=== PATIENT | male | born 1960 | race Caucasian/White ===

== ENCOUNTER → 2020-11-23 02:59 | Outpatient (CLI) | payer OTHER, SELFPAY ==
[2020-11-24 01:17] LABS: SARS-CoV-2 RNA PCR Negative
== END ==
PROVIDERS: Visit Provider Specialist
DX: Z01.812 Encounter for preprocedural laboratory examination (principal); Z20.822 Contact with and (suspected) exposure to COVID-19
CPT/HCPCS: C9803; U0003; U0005

== ENCOUNTER 2020-11-27 02:36 | Day surgery (SDC) | payer OTHER, SELFPAY ==
[2020-11-26 16:16] VITALS: BMI 44.4
[2020-11-27] VITALS (18 sets, daily range): BP systolic 105–151; BP diastolic 52–99; PULSE 61–71; RESP 14–22; TEMP 35.8–36.1; O2SAT 93–97
[2020-11-27 08:41] LABS: Basophils Absolute Auto 0.1 K/mm3 (0.0-0.1); Basophils Percent Auto 0.5 % (0.2-1.2); Eosinophils Absolute Auto 0.2 K/mm3 (0-0.3); Eosinophils Percent Auto 1.9 % (0-4.4); Hematocrit 43.4 % (42.0-52.0); Hemoglobin 14.9 g/dL (14.0-18.0); Immature Granulocyte Absolute 0.07 K/mm3 (0.00-0.031); Immature Granulocyte Percent A 0.6 % (0-0.5); Lymphocytes Absolute Auto 2.92 K/mm3 (0.9-3.2); Lymphocytes Percent Auto 26.2 % (18.3-44.2); Mean Corpuscular HGB Conc 34.3 g/dl (32-36); Mean Corpuscular Hemoglobin 31.5 pg (26-34); Mean Corpuscular Volume 91.8 fl (80-100); Mean Platelet Volume 10.3 fl (7.4-10.4); Monocytes Absolute Auto 1.4 K/mm3 (0.1-0.6); Monocytes Percent Auto 12.3 % (2.6-8.5); Neutrophils Absolute Auto 6.5 K/mm3 (1.3-6.7); Neutrophils Percent Auto 58.5 % (45.5-73.1); Platelet Count Result 277 k/mm3 (150-375); Red Blood Count 4.73 M/mm3 (4.6-6.20); Red Cell Distribution Width 12.5 % (11.5-14.5); White Blood Count 11.2 K/mm3 (4.5-10.0)
[2020-11-27 08:51] LABS: Anion Gap 8 mmol/L (8-16); Blood Urea Nitrogen 16 mg/dL (9-20); Calcium 9.1 mg/dL (8.4-10.2); Carbon Dioxide 27 mmol/L (22-30); Chloride 102 mmol/L (98-107); Estimated CRCL calculation 124 ml/min; Estimated Glomerular Filt Rate > 60; Glucose 205 mg/dL (75-110); INR 0.9; Potassium 4.2 mmol/L (3.4-5.0); Prothrombin Time 13.2 Seconds (11.1-14.7); Sodium 137 mmol/L (137-145)
--- NOTE | 2020-11-27 09:35 | WPDMODSED ---
Moderate Sedation Note-Pt Data Patient Data Diagnosis: Exertional dyspnea/chest pain Abnormal nuclear stress test Morbid obesity Medical noncompliance Smoking Present Complaint: This is a 60-year-old man who smokes and is morbidly obese who has been experiencing exertional dyspnea as well as some occasional chest pain. Nuclear stress test suggests evidence of ischemic left ventricular systolic dysfunction and in this setting and angiogram has been recommended Procedure to be performed/Plan: Left heart catheterization Allergies Allergy/AdvReac Type Severity Reaction Status Date / Time No Known Allergies Allergy Unknown Verified 11/26/20 16:11 Home Medications Medication Instructions Recorded Confirmed Type acetaminophen 500 mg PO DAILY 11/27/20 11/27/20 History aspirin 81 mg PO DAILY 11/27/20 11/27/20 History atorvastatin 80 mg PO HS 11/27/20 11/27/20 History cholecalciferol (vitamin D3) 25 mcg PO DAILY 11/27/20 11/27/20 History [Vitamin D3] clopidogrel 75 mg PO DAILY 11/27/20 11/27/20 History evolocumab [Repatha Syringe] See Rx Instructions .ROUTE .COMPLEX 11/27/20 11/27/20 History fenofibrate 145 mg PO DAILY 11/27/20 11/27/20 History lisinopril 5 mg PO DAILY 11/27/20 11/27/20 History metoprolol succinate 100 mg PO DAILY 11/27/20 11/27/20 History omega 8-yfe-mlt-fish oil [Fish Oil] 1 cap PO DAILY 11/27/20 11/27/20 History Current Medications: Active Medications Sodium Chloride (Normal Saline Iv) 500 mls @ 100 mls/hr IV CONT .Q5H LUCERO Sedation/Anesthesia: No previous sedation/anesthesia problems (including family history). [facility] Social History Social History Smoking status: Current every day smoker Substance use: current Living arrangements: alone Mod Sed Physical Exam Physical Exam Pre Procedural Exam: Normal: Airway, Lungs, Heart Size, Heart Rate, Heart Rhythm, Neuro Exam and Extremities and Variation: Appearance (Obese man in no distress) Hours since solid foods: 12 Hours since liquid intake: 12 Internal Medicine - PN: Obj Da Vital Signs Vital Signs: Vital Signs - 24 hr 11/27/20 08:38 Temperature 35.8 C L Pulse Rate 71 Respiratory Rate 20 Blood Pressure 139/63 Pulse Oximetry 96 Meds/Results Medications: Active Medications Generic Name Dose Route Start Last Admin Trade Name Freq PRN Reason Stop Dose Admin Sodium Chloride 500 mls @ 100 mls/hr 11/27/20 08:00 Normal Saline Iv IV CONT .Q5H LUCERO Labs CBC & Chem 7: 11/27/20 08:29 11/27/20 08:29 Labs: Laboratory Results - last 24 hr 11/27/20 11/27/20 11/27/20 08:29 08:29 08:29 WBC 11.2 H RBC 4.73 Hgb 14.9 Hct 43.4 MCV 91.8 MCH 31.5 MCHC 34.3 RDW 12.5 Plt Count 277 MPV 10.3 Immature Gran % (Auto) 0.6 H Neut % (Auto) 58.5 Lymph % (Auto) 26.2 [place] % (Auto) 12.3 H Eos % (Auto) 1.9 Baso % (Auto) 0.5 Lymph # (Auto) 2.92 [place] # (Auto) 1.4 H Eos # (Auto) 0.2 Baso # (Auto) 0.1 Abs Immat Gran (auto) 0.07 H Absolute Neuts (auto) 6.5 Absolute Nucleated RBC 0.0 Nucleated RBC % 0.0 PT 13.2 INR 0.9 Sodium 137 Potassium 4.2 Chloride 102 Carbon Dioxide 27 Anion Gap 8 BUN 16 Creatinine 0.70 Estim Creat Clear Calc 124 Estimated GFR > 60 Glucose 205 H Calcium 9.1 ASA Classification/Sedation ASA Classification/Sedation ASA Class: II Emergent: No Risks: Risks, benefits and alternatives explained and patient/family accepted plan for sedation. Patient re-evaluated immediately prior to sedation.
--- NOTE | 2020-11-27 10:45 | WPDCARDPROC ---
Cardiac Cath Procedure Note Date of procedure:: 11/27/20 Performing physician:: Drew Wallis MD Indication:: Coronary artery disease with previous MN/PCI symptoms of ischemia with modest exertion abnormal nuclear stress test Brief clinical history:: this is a 60-year-old patient with coronary disease having undergone previous intervention revascularization of all of his coronaries. By report his LAD was most recently treated in 2009 with a bare metal stent. His circumflex and right coronary arteries were previously stented and were patent at that time. He now has reporting increasing shortness of breath with activity along with some mixed ischemic sounding chest pain. Because of a significantly abnormal nuclear stress test follow-up angiography has been recommended. The patient is morbidly obese and has not been able to quit smoking Procedure Procedure performed:: left ventriculography coronary angiography Sedation/Medication given:: fentanyl 50 mg Versed 2 mg case start time 10:11 a.m. case end time 10:40 a.m. sedation provided by Elissa Webb RN, trained observer Access site:: right femoral artery Estimated blood loss:: 20-30 cc Procedure note:: patient was brought to the cardiac catheterization lab in the postabsorptive state where the right femoral triangle was prepared and draped in the usual fashion. Anesthesia was provided with 1% lidocaine infiltrated locally. Using the modified Seldinger technique a 5 [place] sheath was placed in the femoral artery after this left heart catheterization was carried out. A 5 [place] angled pigtail catheter was used to measure left-sided hemodynamics and to injected LV g in the are AO projection. After this the pigtail catheter was withdrawn. I used a standard 5 [place] FL4 catheter to engage and inject the left coronary artery in multiple projections after this a standard 5 [place] JR4 catheter was used to engage inject the right coronary artery. Because of hypotension the patient did receive about 500 cc bolus of saline during the procedure. At the end of the procedure the cineangiograms were reviewed and the case was terminated was taken to the holding area for manual sheath removal. The procedure was uncomplicated he left the director geophysical laboratory with no evidence of a groin hematoma. Findings:: Hemodynamics: Central aortic pressure is 90 over 45 left ventricle 90 over 8 end-diastolic 14. No significant gradient on pullback across the aortic valve. Left ventricle: The LV is moderately enlarged. The mid anterior apex and apical inferior segments are akinetic. The global ejection fraction is visually estimated to be about 40%. The left main coronary artery is nicely patent the left anterior descending is a moderate caliber artery extending down to around the apex. There is visible stent material in the midportion of the LAD with minimal loss of lumen but appears to be patent without flow-limiting stenosis. The proximal segment however is significantly diseased with about 80% stenosis in the vicinity of the septal perforating complex. This is proximal to the previously deployed stent. Circumflex is a medium caliber artery which gives rise to a proximal OM1 branch which is free of significant disease after this the trunk of the circumflex as visible previously deployed stent and the remainder of the circumflex is 100% occluded in this segment. The right coronary artery is large in caliber and dominant to the posterior circulation. There is diffuse disease in the trunk of the RCA. In the 2nd to 3rd portion there is a previously visible stent and in this segment of the artery there is severe long complex 95-99% stenosis. Conclusion:: 1. Severe 3 vessel coronary artery disease with significant stenosis in the proximal LAD prior to previously deployed stent, 100% occlusion of the circumflex in the previously stented segment after the 1st marginal branch originates. Severe compl
[2020-11-27] MEDS: SODIUM CHLORIDE 0.9% IV 1,000 ML 125 ML IV CONT (13:54)
--- NOTE | 2020-11-27 16:54 | SUR.PHASEII ---
NAHID Bowers called Dr. May for the patient, because the patient states he does not have anyone staying with him tonight, but his sister can call and check on him. Dr. Wallis had left for the day and the patient was Dr. May's. Dr. May stated he was okay with patient going home and having his sister call and check on him through the evening.
--- NOTE | 2020-11-27 17:30 | SUR.PHASEII ---
Patient was escorted off the unit by wheelchair and discharged into the care of his sister.
== END 2020-11-27 16:30 | disposition home or self-care (01) ==
PROVIDERS: PCP Family Medicine; Visit Provider Specialist
PROC: 4A023N7 Measurement of Cardiac Sampling and Pressure, Left Heart, Percutaneous Approach (ICD-10-PCS; CPT 93452; principal; 2020-11-27 10:00)
DX: I25.10 Atherosclerotic heart disease of native coronary artery without angina pectoris (principal); R94.39 Abnormal result of other cardiovascular function study; I25.2 Old myocardial infarction; Z95.5 Presence of coronary angioplasty implant and graft; R06.02 Shortness of breath; R07.9 Chest pain, unspecified; E66.01 Morbid (severe) obesity due to excess calories; Z68.41 Body mass index [BMI] 40.0-44.9, adult; Z79.82 Long term (current) use of aspirin; Z79.02 Long term (current) use of antithrombotics/antiplatelets; F17.200 Nicotine dependence, unspecified, uncomplicated
CPT/HCPCS: 36415; 80048; 85025; 85610; 93458; C1887; C1894; J0461; J1644; J2250; J3010; J7040

== ENCOUNTER 2021-02-03 09:58 | Emergency (ER) | payer OTHER, SELFPAY ==
--- NOTE | ~2021-02-03 | XR_ITS ---
EXAMINATION: XR abdomen obstructive series DATE: 02/03/2021 10:45 INDICATION: Constipation one month post open heart surgery. TECHNIQUE: Frontal supine and upright views of the abdomen were obtained. COMPARISON: None. FINDINGS: Moderate amount of stool scattered throughout the colon. No dilated gas-filled loops of bowel to sugg est obstruction. No free intraperitoneal gas. Median sternotomy wires and mediastinal surgical clips are seen, likely from prior coronary artery bypass grafting. Is also retained epicardial pacemaker le ad along the inferior heart. IMPRESSION: 1. Moderate amount of colonic stool consistent with given history of constipation. No free intraperit tobar gas or dilated gas-filled loops of bowel to suggest obstruction. Reviewed, dictated and finalized at location A. IMPRESSION: 1. Moderate amount of colonic stool consistent with given history of constipati on. No free intraperitoneal gas or dilated gas-filled loops of bowel to suggest obstruction.
[2021-02-03 10:05] VITALS: BP 147/84; PULSE 94; RESP 17; TEMP 36.7; O2SAT 97
[2021-02-03] MEDS: METHYLNALTREXONE 12 MG/0.6 ML VIAL SUB-Q (11:01)
--- NOTE | 2021-02-03 11:20 | ED.GENADULT ---
HPI - General Adult General Chief complaint: Abdominal Pain Stated complaint: CONSTIPATION Time Seen by Provider: 02/03/21 10:01 History of Present Illness HPI narrative: Patient is a 60-year-old male who presents ER with constipation. Ongoing over the last couple days. Ran out of stool softener. He is constipated because he has been taking oxycodone every 8 hours since having an open heart surgery last month. No fevers or chills or sweats. No chest pain or chest pressure. He was straining today and developed some bleeding around his rectum and opted to come to the ER for further evaluation. Related Data Home Medications Medication Instructions Recorded Confirmed acetaminophen 500 mg PO DAILY 11/27/20 11/27/20 aspirin 81 mg PO DAILY 11/27/20 11/27/20 atorvastatin 80 mg PO HS 11/27/20 11/27/20 cholecalciferol (vitamin D3) 25 mcg PO DAILY 11/27/20 11/27/20 [Vitamin D3] clopidogrel 75 mg PO DAILY 11/27/20 11/27/20 evolocumab [Repatha Syringe] See Rx Instructions .ROUTE .COMPLEX 11/27/20 11/27/20 fenofibrate 145 mg PO DAILY 11/27/20 11/27/20 lisinopril 5 mg PO DAILY 11/27/20 11/27/20 metoprolol succinate 100 mg PO DAILY 11/27/20 11/27/20 omega 8-ixr-ocf-fish oil [Fish Oil] 1 cap PO DAILY 11/27/20 11/27/20 Allergies Allergy/AdvReac Type Severity Reaction Status Date / Time No Known Allergies Allergy Unknown Verified 11/26/20 16:11 Review of Systems Review of Systems: All systems reviewed & are unremarkable except as noted in HPI and below Constitutional: Constitutional: Denies chills and Denies fever(s) Cardiovascular: Cardiovascular: Denies chest pain and Denies radiating jaw, neck or arm pain Gastrointestinal: Gastrointestinal: Denies abdominal pain, Reports constipation, Denies nausea and Denies vomiting Comments: Blood from rectum. [facility] Past Medical History Medical History (Updated 02/03/21 @ 11:25 by Timbo Noel MD) Coronary artery disease Hypercholesterolemia Hypertension Surgical History Surgical History (Updated 02/03/21 @ 11:24 by Timbo Noel MD) Hx of CABG Social History Social History Smoking status: Current every day smoker Substance use: current Exam Narrative: Exam Narrative: GENERAL: Well-appearing, morbidly obese, and in no acute distress. HEAD: Normocephalic, atraumatic. ENT: Mucous membranes moist. CHEST: Clear to auscultation. No respiratory distress. HEART: Regular rate and rhythm. Normal peripheral pulses. ABDOMEN: Soft, nontender, nondistended. Normal-appearing rectum with 1 external hemorrhoid that is nonbleeding nonthrombosed. There is evidence of recent bleeding but no active sites of bleeding. EXTREMITIES: Normal range of motion. No edema. NEURO: Alert and oriented x3. PSYCH: Normal mood and affect. Course Course Emergency Course: Patient had a large caliber bowel movement after receiving Relistor. Discharge home. Vital Signs Vital signs: Vital Signs Temperature 98.1 F 02/03/21 10:05 Pulse Rate 94 02/03/21 10:05 Respiratory Rate 17 02/03/21 10:05 Blood Pressure 147/84 H 02/03/21 10:05 Pulse Oximetry 97 02/03/21 10:05 Temperature 98.1 F 02/03/21 10:05 Pulse Rate 94 02/03/21 10:05 Respiratory Rate 17 02/03/21 10:05 Blood Pressure 147/84 H 02/03/21 10:05 Pulse Oximetry 97 02/03/21 10:05 Medical Decision Making Vital Signs Vital Signs: Vital Signs Temperature 98.1 F 02/03/21 10:05 Pulse Rate 94 02/03/21 10:05 Respiratory Rate 17 02/03/21 10:05 Blood Pressure 147/84 H 02/03/21 10:05 Pulse Oximetry 97 02/03/21 10:05 Temperature 98.1 F 02/03/21 10:05 Pulse Rate 94 02/03/21 10:05 Respiratory Rate 17 02/03/21 10:05 Blood Pressure 147/84 H 02/03/21 10:05 Pulse Oximetry 97 02/03/21 10:05 Imaging Data Radiologist's impression: ITS Impressions Abdomen X-Ray 02/03/21 10:50 IMPRESSION: 1. Moderate amount of colonic stool consistent with given history of constip
--- NOTE | 2021-02-03 11:20 | PC.NURSE ---
Patient had large bowel movement. EDP Cole notified. Patient now requesting to leave.
== END 2021-02-03 11:37 | disposition home or self-care (01) ==
PROVIDERS: Emergency Provider Emergency Medicine; PCP Family Medicine
DX: K59.03 Drug induced constipation (principal); T40.2X5A Adverse effect of other opioids, initial encounter; I25.10 Atherosclerotic heart disease of native coronary artery without angina pectoris; I10 Essential (primary) hypertension; F17.200 Nicotine dependence, unspecified, uncomplicated; Z95.1 Presence of aortocoronary bypass graft; Z79.82 Long term (current) use of aspirin
CPT/HCPCS: 74019; 96372; 99283; J2212

== ENCOUNTER 2021-12-27 16:02 | Inpatient (IN) | payer OTHER, SELFPAY ==
[2021-12-27] VITALS (27 sets, daily range): BP systolic 146–205; BP diastolic 94–107; PULSE 65–112; RESP 13–25; TEMP 36.1–36.8; O2SAT 88–98; BMI 42.4
--- NOTE | ~2021-12-27 | XR_ITS ---
EXAMINATION: XR chest 1V portable Exam Date/Time: 12/27/2021 16:35 CDT HISTORY: STEMI,HX 3 SD'S AND CABG WITHIN LAST YEAR Comparison: 03/31/2010. RESULT: Lines, tubes, and devices: Intact sternotomy wires. Lungs and pleura: Clear. Cardiomediastinal silhouette: Stable cardiomediastinal silhouette. Other: No acute osseous or upper abdominal finding. IMPRESSION: No acute cardiopulmonary process. Reviewed, dictated and finalized at location K.
--- NOTE | ~2021-12-27 | NM_ITS ---
EXAMINATION: NM pulmonary perfusion DATE: 12/29/2021 11:05 INDICATION: Hypoxia and tachycardia. TECHNIQUE: 5.4 mCi Tc-99m MAA by intravenous route. Scintigraphic images of the chest were obtained. COMPARISON: CT dated 12/27/2021 FINDINGS: There are 3 small peripheral perfusion defects at the left lower lobe and single small perfusion defe ct at the right lower lobe which are without correlate on the prior CT. IMPRESSION: 1. Intermediate probability for pulmonary embolism. Reviewed, dictated and finalized at location B.
--- NOTE | ~2021-12-27 | US_ITS ---
EXAMINATION: US abdomen limited DATE: 12/28/2021 10:58 INDICATION: Elevated lipase TECHNIQUE: Multiple grayscale and Doppler ultrasound images of the abdomen were obtained. COMPARISON: CT dated 12/27/2021 FINDINGS: The region of the pancreas is obscured. Liver has normal contour, with a smooth surface. There is inc reased parenchymal echogenicity and coarsened echotexture consistent with diffuse hepatic steatosis. No liver lesion identified. No intrahepatic biliary duct dilation suspected. Portal venous flow was seen in the hepatopetal, normal direction and has normal Doppler waveform. The gallbladder is normal in appearance. There is no cholelithiasis. The common bile duct measures 4 mm, which is normal. Per discussion with the glass forming engineer the patient was diffusely tender of the abdomen or prominent on the l eft but with no specific sonographic Marin's sign over the gallbladder. IMPRESSION: 1. Diffuse hepatic steatosis. 2. Region of the pancreas is obscured by shadowing bowel gas. Reviewed, dictated and finalized at location A.
--- NOTE | ~2021-12-27 | CT_ITS ---
EXAMINATION: CT chest abdomen pelvis w con DATE: 12/27/2021 17:47 INDICATION: pt with hypoxia, chest pain, abdominal pain . TECHNIQUE: Computed tomography (CT) of the chest, abdomen, and pelvis was performed with 75 mL Omnipa que-300 intravenous contrast. Automated exposure control and iterative reconstruction technique were employed. The dose-length product was 1855.20 mGy-cm. COMPARISON: None FINDINGS: Thoracic aorta: No dilation. Atherosclerotic calcification. Lung parenchyma and airways: Lungs and airways are clear. Thoracic inlet, axillae and chest wall: No thyroid or soft tissue mass. No axillary lymphadenopathy. Gynecomastia. Mediastinum: No mass or lymphadenopathy. Heart and pericardium: Mild cardiomegaly. Coronary artery calcifications: Severe. Pleura: No effusion or mass. Thoracic bones: No acute osseous finding in the chest. ABDOMEN/PELVIS: Liver: Enlarged. Low density parenchyma. Biliary/Gallbladder: Gallbladder is normal. No bile duct dilation. Pancreas: Peripancreatic inflammation and fluid at the tail. Focal eccentric, nonocclusive filling de fect in the adjacent splenic vein. Spleen: Normal. Adrenals:No mass. Kidneys: Bilateral cortical thinning and perinephric stranding. Multiple calcifications may represent vascular calcifications or nonobstructing nephroliths. GI tract: No small or large bowel dilation. Normal appendix. Diverticuli without diverticulosis. Mesentery/Peritoneum: No ascites, mass, or free air. Retroperitoneum: No mass Pelvis: Pelvic organs are within normal limits Soft Tissues: Soft tissues and body wall unremarkable. Abdominopelvic bones: No acute osseous finding in the abdomen/pelvis. IMPRESSION: Acute pancreatitis. Nonocclusive splenic vein thrombosis. Hepatomegaly with steatosis. Reviewed, dictated and finalized at location K. IMPRESSION: Acute pancreatitis. Nonocclusive splenic vein thrombosis. Hepatomegaly with todd atosis.
--- NOTE | ~2021-12-27 | US_ITS ---
EXAMINATION: US venous doppler [facility] DATE: 12/29/2021 10:50 INDICATION: Chest pain. Acute thrombus of splenic vein. TECHNIQUE: Grayscale ultrasound images without and with compression and Doppler ultrasound images of the bilateral lower extremity veins were obtained. COMPARISON: None. FINDINGS: The visualized portions of right common femoral vein, profunda (deep) femoral vein, femoral vein, pop liteal vein, peroneal veins, posterior tibial veins, and greater saphenous vein outflow are patent. The visualized portions of left common femoral vein, profunda femoral vein, femoral vein, popliteal v ein, peroneal veins, posterior tibial veins, and greater saphenous vein outflow are patent. IMPRESSION: 1. No deep venous thrombosis. Reviewed, dictated and finalized at location A.
--- NOTE | ~2021-12-27 | XR_ITS ---
EXAMINATION: XR chest 2V Exam Date/Time: 12/30/2021 15:00 CDT HISTORY: sob Comparison: 12/27/2021 and 03/31/2010. RESULT: Lines, tubes, and devices: Intact sternotomy wires. Lungs and pleura: Subsegmental patchy and linear bibasilar opacities, increased since prior study. Cardiomediastinal silhouette: Stable cardiomediastinal silhouette. Other: No acute osseous or upper abdominal finding. IMPRESSION: Increased bibasilar opacities, likely atelectasis. Pneumonia is not excluded. Reviewed, dictated and finalized at location K.
--- NOTE | 2021-12-27 15:57 | ED.CHESTPAIN ---
HPI - Chest Pain General Chief Complaint: Chest Pain Stated Complaint: stemi Source: patient and EMS Mode of arrival: EMS Limitations: clinical condition History of Present Illness HPI narrative: Patient is a 61-year-old male with a history of coronary artery disease, CABG, previous PR in 2009, presenting to the emergency department as a STEMI activation via EMS. Patient reportedly has been feeling unwell with left-sided chest pain overnight. Patient took some antacids without improvement in his symptoms. His initial EKG showed anterior segment elevation in leads V2, V3, V4, V5. When patient was roomed in the emergency department, patient is reporting chest pain that has been present overnight in the left chest without radiation to the back or shoulder. Patient reports onset of chest pain that he initially thought was indigestion and took some antacids without much improvement in his symptoms. Patient has been compliant with his medications and does take Eliquis per my review of his medication list. Patient denies any shortness of breath or history of recent known COVID infection. He reports nausea, vomiting, diaphoresis with the chest pain. Patient has extensive cardiac history with history of CABG in 2020 at [facility]. His administrative intern is Dr. May. Per chart review, patient has history of complex cardiac catheterization in November 2020 as well. Pt with record of STEMI treated at this facility in 2009. In route, patient was given nitroglycerin with improvement in his symptoms. Related Data Home Medications Medication Instructions Recorded Confirmed acetaminophen 500 mg PO DAILY 11/27/20 11/27/20 aspirin 81 mg PO DAILY 11/27/20 11/27/20 atorvastatin 80 mg PO HS 11/27/20 11/27/20 cholecalciferol (vitamin D3) 25 mcg PO DAILY 11/27/20 11/27/20 [Vitamin D3] clopidogrel 75 mg PO DAILY 11/27/20 11/27/20 evolocumab [Repatha Syringe] See Rx Instructions .ROUTE .COMPLEX 11/27/20 11/27/20 fenofibrate 145 mg PO DAILY 11/27/20 11/27/20 lisinopril 5 mg PO DAILY 11/27/20 11/27/20 metoprolol succinate 100 mg PO DAILY 11/27/20 11/27/20 omega 5-qyd-msf-fish oil [Fish Oil] 1 cap PO DAILY 11/27/20 11/27/20 Allergies Allergy/AdvReac Type Severity Reaction Status Date / Time No Known Allergies Allergy Unknown Verified 12/27/21 16:24 Review of Systems Review of Systems: CONSTITUTIONAL: Denies fever, chills, reports feeling diaphoretic EYES: Denies visual changes, redness, or discharge. ENT: Denies rhinorrhea, congestion, sore throat, or otalgia. CARDIOVASCULAR: Reports chest pain, denies palpitations or edema RESPIRATORY: Denies cough or dyspnea. GASTROINTESTINAL: Denies abdominal pain, reports nausea and vomiting GENITOURINARY: Denies dysuria or hematuria. SKIN: Denies rash or itching. MUSCULOSKELETAL: Denies back pain, joint pain, or myalgia. NEUROLOGIC: Denies headache, numbness, or weakness. [facility] Past Medical History Medical History Coronary artery disease Hypercholesterolemia Hypertension Surgical History Surgical History Hx of CABG Social History Social History Smoking status: Current every day smoker Substance use: current Exam Narrative: GENERAL: Awake, alert, conversant HEAD: Normocephalic, atraumatic. EYES: PERRLA and EOMI. ENT: Nares clear, no rhinorrhea or epistaxis. Mucous membranes dry NECK: Supple. CHEST: No respiratory distress, breathing even and non labored HEART: Tachycardic rate, sinus rhythm ABDOMEN:Non distended, mildly tender in the epigastrium EXTREMITIES: Normal range of motion. No edema. SKIN: Pale, warm, dry, no rash. NEURO:No focal deficits. Alert and oriented x3 Course Vital Signs Vital signs: Vital Signs Pulse Rate 110 H 12/27/21 15:57 Respiratory Rate 13 12/27/21 15:57 Blood Pressure 146/104 H 05
--- NOTE | 2021-12-27 16:09 | ECG_ITS ---
Measurements Intervals [place] Rate: 108 P: 67 MS: 151 QRS: 55 QRSD: 106 T: 54 QT: 358 QTc: 482 Interpretive Statements SINUS TACHYCARDIA LEFT ATRIAL ENLARGEMENT LEFT VENTRICULAR HYPERTROPHY WITH REPOLARIZATION ABNORMALITY CANNOT RULE OUT SEPTAL INFARCT, AGE INDETERMINATE INFERIOR INFARCT, AGE INDETERMINATE ST ELEVATION IN ANTEROLATERAL LEADS- CONSIDER ACUTE INFARCT, PERICARDITIS OR EARLY REPOLARIZATION ABNORMALITY ABNORMAL ECG Electronically Signed On 12-28-2021 8:05:33 CDT by Dank Morgan D.O.
[2021-12-27] MEDS: ONDANSETRON INJ 4 MG/2 ML VIAL IV PUSH ×2 (16:11→19:14)
[2021-12-27] MEDS: SODIUM CHLORIDE 0.9% IV 500 ML 999 ML IV CONT (16:15)
[2021-12-27] MEDS: MORPHINE SULFATE (*CRX) 4 MG/ML INJ IV PUSH ×3 (16:16→21:17)
[2021-12-27 16:20] LABS: Basophils Absolute Auto 0.1 K/mm3 (0.0-0.1); Basophils Percent Auto 0.3 % (0.2-1.2); Eosinophils Percent Auto 0.2 % (0-4.4); Hematocrit 48.9 % (42.0-52.0); Hemoglobin 17.1 g/dL (14.0-18.0); Immature Granulocyte Absolute 0.09 K/mm3 (0.00-0.031); Immature Granulocyte Percent A 0.5 % (0-0.5); Lymphocytes Percent Auto 13.4 % (18.3-44.2); Mean Corpuscular Hemoglobin 30.4 pg (26-34); Mean Platelet Volume 10.6 fl (7.4-10.4); Neutrophils Absolute Auto 13.9 K/mm3 (1.3-6.7); Neutrophils Percent Auto 74.6 % (45.5-73.1); Platelet Count Result 363 k/mm3 (150-375); Red Blood Count 5.62 M/mm3 (4.6-6.20); White Blood Count 18.6 K/mm3 (4.5-10.0)
[2021-12-27 16:29] LABS: INR 1.1; Prothrombin Time 14.1 Seconds (11.1-14.7)
[2021-12-27 16:30] LABS: Partial Thromboplastin Time 27.6 SECONDS (22.3-36.8)
[2021-12-27 16:36] LABS: Alanine Aminotransferase 35 U/L (6-50); Albumin Level 4.7 g/dL (3.5-5.1); Alkaline Phosphatase 91 U/L (38-126); Anion Gap 9 mmol/L (8-16); Aspartate Amino Transferase 30 U/L (17-59); Bilirubin,Total 0.8 mg/dL (0.2-1.3); Blood Urea Nitrogen 32 mg/dL (9-20); Calcium 12.6 mg/dL (8.4-10.2); Carbon Dioxide 32 mmol/L (22-30); Chloride 89 mmol/L (98-107); Estimated CRCL calculation 75 ml/min; Estimated Glomerular Filt Rate > 60; Glucose 467 mg/dL (65-110); Potassium 3.8 mmol/L (3.4-5.0); Sodium 130 mmol/L (137-145)
[2021-12-27 16:41] LABS: NT Pro B Type Natriuretic Pept 474 pg/mL (5-100)
[2021-12-27 16:57] LABS: SARS-CoV-2 RNA PCR Negative
--- NOTE | 2021-12-27 17:04 | PC.NURSE ---
Dr. Wallis with Cardiology at bedside to assess pt.
--- NOTE | 2021-12-27 17:18 | PM.CNCAR ---
Assessment and Plan Additional Plan this is a 61-year-old gentleman known to have multivessel coronary disease who underwent bypass grafting in December of 2020 at [facility]. He presents with some chest pain that began last evening at home was present through the night and into today. In the face of that he has a normal troponin level in the emergency room. His electrocardiogram shows a sinus mechanism with anterior Q-waves and some anterior ST elevation. His ECG from December of 2020 looks similar with the same Q-waves across the precordial leads there is less ST segment elevation on the previous ECG. The patient will be admitted to the hospital for evaluation and treatment. I made the decision in the emergency room that it is in my judgment not the best decision to bring him emergently to the cardiac catheterization lab since in the face of prolonged symptoms his troponin levels are negative and he is systemically anticoagulated with apixaban making angiography substantially higher risk. It is always possible that he has some pericarditis going on that might cause some additional ST segment elevation although I do not hear a pericardial rub in the symptoms are not typical of that by his description. He does have a significant leukocytosis and hyperglycemia he might have an infectious process going on as well. For now I would stop his apixaban for the possibility that he might require an angiogram while he is in the hospital and I would admitted to the hospitalist service for further evaluation and management. Obviously be has a significant troponin rise he will require an angiogram at some point but I do not believe it is in his best interest to do that emergently in the face of no ongoing symptoms, normal troponin and the presence of systemic anticoagulation. Drew Wallis MD [facility] History of Present Illness History of Present Illness Consult date/time: 12/27/21 17:18 Consult reason: chest pain Reason For Visit: stemi Narrative: This is a 61-year-old man I am seeing in the emergency room to determine the appropriateness of bringing him for emergency coronary angiography in the setting of STEMI that was declared by EMS. The patient is known to our practice and follows with Dr. May in the office. He has a history of significant coronary disease with a number of previous percutaneous interventions as well as surgical revascularization that was done in December of 2020 at [facility]. According to the patient he was in his usual state of stable health when yesterday evening he started to have chest pain at home he describes this as a sharp stabbing sensation which sometimes had a pressure-like quality to it in the left precordial region. The discomfort began yesterday evening at about 5-6 p.m. it was present through the evening all night and into today. He finally decided to call an ambulance and was brought to the emergency room here this evening for evaluation. His electrocardiogram in route shows sinus mechanism with Q-waves across the precordial leads as well as anterior precordial ST elevation. For this reason STEMI was activated in the field. I spoke to the emergency room physician who describe to me the history of previous angiography here, previous bypass surgery 1 year ago as well as the fact that he was systemically anticoagulated with apixaban and the reason for that was unclear to them. I instructed the ED staff and lab head staff to not bring the patient to the lab head until I arrived on the scene and evaluated this situation personally. The patient is currently not having any chest pain he was treated in the emergency room and received some morphine. His troponin level interestingly is normal despite the history of chest pain as is detailed above. He has an electrocardiogram that I found in the office chart from December of 2020 at [facility] that shows a sinus mechanism with Q-waves across the precordial le
[2021-12-27 17:20] LABS: Lipase 6946 U/L (23-300)
--- NOTE | 2021-12-27 17:34 | PC.NURSE ---
Patient off unit to CT.
--- NOTE | 2021-12-27 19:00 | PC.NURSE ---
Patient's O2 per NC increased to 4L as patient sating at 91% on 3L when lying supine.
[2021-12-27 19:08] LABS: Lactic Acid Reflex 2.7 mmol/L (0.7-2.0)
[2021-12-27] MEDS: METOPROLOL TARTRATE INJ 5 MG/5 ML VIAL IV PUSH (19:14)
--- NOTE | 2021-12-27 19:24 | PC.NURSE ---
Assumed care of pt at this time. Pt alert and upright on stretcher, updated on POC.
[2021-12-27 19:25] LABS: Troponin I 0.029 ng/mL (0.000-0.034)
--- NOTE | 2021-12-27 20:11 | PM.IMHP ---
H&P: HPI History of Present Illness Date/Time: 12/27/21 20:11 Chief Complaint: Chest pain. Narrative: This is a 61-year-old male with past medical history significant for type 2 diabetes mellitus, coronary artery disease, obesity, hypertension, dyslipidemia, hepatic steatosis. Patient presents to the emergency room due to pain localized to the precordial area and epigastric area nonradiating pain has been present since the day before and into today is day patient states that he has been his usual state of health prior to these denies any shortness of breath, cough, sputum production, fevers, rigors, chills, near-syncope, syncope, lightheadedness, dizziness, leg swelling no calves pain, no nausea, no vomiting, no diarrhea. Preliminary workup was significant for an elevated lipase level and glucose in the 400's, a CT of abdomen and pelvis was significant for acute splenic vein thrombosis and pancreatitis. Patient is been admitted for further evaluation, management and treatment. Review of Systems Review of Systems: Chest pain, abdominal pain Constitutional: Constitutional: Denies chills, Denies fatigue, Denies fever(s), Denies malaise, Denies night sweats and Denies weakness Eyes: Eyes: Denies change in vision ENT: Denies dysphagia, Denies vertigo, Denies dizziness, Denies nasal congestion, Denies nasal discharge, Denies nasal obstruction and Denies odynophagia Cardiovascular: Cardiovascular: Reports chest pain, Denies rapid heart rate, Denies claudication, Denies lightheadedness, Denies radiating jaw, neck or arm pain, Denies palpitations, Denies dyspnea, Denies dyspnea on exertion and Denies orthopnea Respiratory: Respiratory: Denies cough Gastrointestinal: Gastrointestinal: Reports abdominal pain, Denies GI cramping, Denies dyspepsia, Denies heartburn, Denies nausea and Denies vomiting Genitourinary: Genitourinary: Denies dysuria Musculoskeletal: Musculoskeletal: Denies arthralgias and Denies joint swelling Integumentary/Breasts: Skin/Breast: Denies rash Neurologic: Denies focal weakness and Denies Sensory deficit (Neuro) Psychiatric: Psychiatric: Reports no additional psychiatric complaints and Reports as per HPI Endocrine: Endocrine: Denies cold intolerance, Denies heat intolerance, Denies polyphagia, Denies polydipsia and Denies palpitations Hematologic/Lymphatic: Hematologic/Lymphatic: Reports no additional hematologic/lymphatic complaints Allergic/Immunologic: Allergic/Immunologic: Reports no additional allergic/immunologic complaints [facility] Past Medical History Medical History Coronary artery disease Hypercholesterolemia Hypertension Surgical History Surgical History Hx of CABG Family History Family History (Updated 12/27/21 @ 20:21 by Karine Colin RN) Father Acute myocardial infarction Diabetes mellitus Mother Acute myocardial infarction Chronic obstructive pulmonary disease Sibling Diabetes mellitus Social History Social History Smoking status: Former smoker Smoking end date: 12/18/20 Alcohol intake: former Substance use: never Substance use type: does not use Spiritual care concerns: No Meds Home Medications and Allergies Home Medications Medication Instructions Recorded Confirmed Type acetaminophen 500 mg PO DAILY PRN 11/27/20 12/27/21 History aspirin 81 mg PO DAILY 11/27/20 12/27/21 History atorvastatin 80 mg PO DAILY 11/27/20 12/27/21 History cholecalciferol (vitamin D3) 25 mcg PO DAILY 11/27/20 12/27/21 History [Vitamin D3] evolocumab [Repatha Syringe] See Rx Instructions .ROUTE .COMPLEX 11/27/20 12/27/21 History amiodarone 200 mg PO DAILY 12/27/21 12/27/21 History apixaban [Eliquis] 5 mg PO BID 12/27/21 12/27/21 History dapagliflozin [Farxiga] 10 mg PO DAILY 12/27/21 12/27/21 History famotidine 20 m
[2021-12-27 20:16] LABS: Glucose Point of Care 441 mg/dl (65-105)
--- NOTE | 2021-12-27 20:25 | ADMGEN ---
This patient, Edinson Sims, was admitted to IMU Room 212-01 at 1956. Patient/family oriented to hospital policies and general routines including ID bracelet, bed and alarms, visiting hours, pain management, procedures, bathroom and other care routines, personal items, smoking policy, room service/diet, and visiting hours. Information on how to activate the Rapid Response Team has been discussed. Patient/Family are encouraged to report perceived risks to care and to ask questions if they do not understand what they are told or what they should do.
[2021-12-27] MEDS: LACTATED RINGERS 1,000 ML 125 ML IV CONT (21:05)
[2021-12-27 21:53] LABS: Reflex Lactic Acid Yes or No Add Lactic
[2021-12-27 22:18] LABS: Troponin I 0.032 ng/mL (0.000-0.034)
[2021-12-27 23:13] LABS: Lactic Acid 2.3 mmol/L (0.7-2.0)
[2021-12-28] VITALS (13 sets, daily range): BP systolic 125–164; BP diastolic 72–97; PULSE 92–114; RESP 18–22; TEMP 36.1–37; O2SAT 92–98
[2021-12-28 00:02] LABS: Glucose Point of Care 385 mg/dl (65-105)
[2021-12-28] MEDS: MORPHINE SULFATE (*CRX) 4 MG/ML INJ IV PUSH ×6 (00:05→23:34)
[2021-12-28] MEDS: INSULIN ASPART (*BKC) 100 UNITS/ML 6 UNITS SUB-Q ×3 (01:04→17:10)
[2021-12-28 04:52] LABS: Basophils Absolute Auto 0.1 K/mm3 (0.0-0.1); Basophils Percent Auto 0.3 % (0.2-1.2); Hematocrit 50.3 % (42.0-52.0); Hemoglobin 16.8 g/dL (14.0-18.0); Immature Granulocyte Absolute 0.09 K/mm3 (0.00-0.031); Immature Granulocyte Percent A 0.5 % (0-0.5); Lymphocytes Absolute Auto 1.64 K/mm3 (0.9-3.2); Lymphocytes Percent Auto 9.7 % (18.3-44.2); Mean Corpuscular HGB Conc 33.4 g/dl (32-36); Mean Corpuscular Hemoglobin 29.9 pg (26-34); Mean Corpuscular Volume 89.7 fl (80-100); Mean Platelet Volume 10.7 fl (7.4-10.4); Monocytes Absolute Auto 2.2 K/mm3 (0.1-0.6); Monocytes Percent Auto 12.8 % (2.6-8.5); Neutrophils Absolute Auto 12.9 K/mm3 (1.3-6.7); Neutrophils Percent Auto 76.7 % (45.5-73.1); Platelet Count Result 315 k/mm3 (150-375); Red Blood Count 5.61 M/mm3 (4.6-6.20); Red Cell Distribution Width 13.1 % (11.5-14.5); White Blood Count 16.8 K/mm3 (4.5-10.0)
[2021-12-28 04:59] LABS: Lactic Acid Reflex 2.4 mmol/L (0.7-2.0)
[2021-12-28 05:07] LABS: Anion Gap 10 mmol/L (8-16); Blood Urea Nitrogen 34 mg/dL (9-20); Calcium 10.6 mg/dL (8.4-10.2); Carbon Dioxide 32 mmol/L (22-30); Chloride 92 mmol/L (98-107); Estimated CRCL calculation 67 ml/min; Estimated Glomerular Filt Rate 57; Glucose 368 mg/dL (65-110); Lipase 1409 U/L (23-300); Magnesium 1.3 mg/dL (1.6-2.3); Sodium 134 mmol/L (137-145)
[2021-12-28] MEDS: LACTATED RINGERS 1,000 ML 125 ML IV CONT ×3 (05:15→17:03)
[2021-12-28] MEDS: GABAPENTIN 100 MG CAPSULE PO ×3 (08:29→17:02)
[2021-12-28] MEDS: FAMOTIDINE 20 MG TABLET PO ×2 (08:29→17:02)
[2021-12-28] MEDS: ATORVASTATIN 40 MG TABLET 80 MG PO (08:29)
[2021-12-28] MEDS: SPIRONOLACTONE 25 MG TABLET PO (08:30)
[2021-12-28] MEDS: AMIODARONE HCL 200 MG TABLET PO (08:30)
[2021-12-28] MEDS: APIXABAN 5 MG TABLET PO ×2 (08:30→20:40)
[2021-12-28] MEDS: methocarbamoL 750 MG TABLET PO (08:31)
[2021-12-28] MEDS: CHOLECALCIFEROL 1,000 UNITS TABLET 1000 UNITS PO (08:31)
[2021-12-28] MEDS: METOPROLOL TARTRATE 12.5 MG TABLET PO ×2 (08:31→20:40)
[2021-12-28] MEDS: ASPIRIN 81 MG CHEWABLE TABLET PO (08:40)
[2021-12-28] MEDS: INSULIN ASPART (*BKC) 100 UNITS/ML SUB-Q ×3 (08:46→17:11)
--- NOTE | 2021-12-28 09:05 | PM.PNCARD ---
Progress Note: A&P Additional Plan 61-year-old gentleman with coronary disease previous percutaneous and recent surgical revascularization as detailed in my consult note. He entered the hospital yesterday with symptoms that have been going on for approximately 24 hours. STEMI was declared in the emergency room room and in the field. I canceled this as I did not believe this was the case. Furthermore his troponin levels were negative despite about 24 hours of symptoms and systemic anticoagulation was in place making angiography rather high risk to consider. Fortunately his troponins have remained normal. Unfortunately his CT scan demonstrates evidence of pancreatitis and lipase levels are elevated. He also has evidence of splenic vein thrombus. No specific cardiac recommendations at this time. Will continue to follow with you. Systemic anticoagulation obviously should be withheld for the foreseeable future Drew Wallis MD [facility] Subjective Date/time seen: Date of service: 12/28/21 09:05 Interval history: Follow-up visit in this 61-year-old man with: Extensive 3 vessel coronary artery disease with previous PCI and surgical revascularization 1 year ago. He entered the hospital yesterday with symptoms of chest pain which now are left upper quadrant abdominal pain and left-sided abdominal pain. He was declared a STEMI in the field. As in my consult note I did not believe this was the case when I saw him in the emergency room yesterday. Troponin levels have remained completely normal. Interestingly CT of the abdomen shows evidence of acute pancreatitis and thrombus in the splenic vein. He says that he feels poorly this morning with ongoing left upper quadrant pain. Exam Const: General: uncomfortable HENMT: Mouth: Yes moist mucous membranes Eyes: Sclera: sclerae normal Neck: Neck: supple and no JVD Resp: Effort & Inspection: normal respiratory effort Auscultation: clear to auscultation bilaterally Cardio: Rate: regular rate Rhythm: regular rhythm GI: GI Palp: Yes Soft to palpation Other: Some epigastric tenderness Skin: General skin exam: normal color Neuro: Cognition (Neuro): normal cognition Extrem: General: normal to inspection Objective Data Vital Signs Vital Signs: Vital Signs - 24 hr 12/27/21 15:57 12/27/21 16:05 12/27/21 16:06 Temperature Pulse Rate 110 H 112 H 110 H Respiratory Rate 13 25 H 16 Blood Pressure 146/104 H 146/104 H Pulse Oximetry 88 L 90 93 12/27/21 16:08 12/27/21 16:09 12/27/21 16:15 Temperature 36.8 C Pulse Rate 107 H 106 H Respiratory Rate 24 H Blood Pressure Pulse Oximetry 96 93 12/27/21 16:24 12/27/21 16:25 12/27/21 16:30 Temperature Pulse Rate 102 H 102 H 98 Respiratory Rate 22 H 21 H 16 Blood Pressure 148/94 H Pulse Oximetry 95 96 12/27/21 16:31 12/27/21 16:32 12/27/21 16:58 Temperature Pulse Rate 65 73 99 Respiratory Rate 21 H 22 H 21 H Blood Pressure 166/95 H Pulse Oximetry 92 93 93 12/27/21 17:00 12/27/21 17:16 12/27/21 17:17 Temperature Pulse Rate 98 96 95 Respiratory Rate 21 H 20 19 Blood Pressure 166/94 H Pulse Oximetry 93 90 96 12/27/21 17:49 12/27/21 17:50 12/27/21 18:00 Temperature Pulse Rate 95 98 96 Respiratory Rate 21 H 17 17 Blood Pressure 183/96 H Pulse Oximetry 12/27/21 18:51 12/27/21 19:00 12/27/21 19:14 Temperature Pulse Rate 108 H 101 H 100 Respiratory Rate 15 21 H Blood Pressure Pulse Oximetry 12/27/21 19:16 12/27/21 19:19 12/27/21 19:31 Temperature Pulse Rate 99 98 84 Respiratory Rate 19 22 H 22 H Blood Pressure 205/101 H 195/98 H Pulse Oximetry 95 93 96 12/27/21 19:39 12/27/21 20:00 12/27/21 23:12 Temperature 36.1 C L 36.3 C L Pulse Rate 91 100 Respiratory Rate 24 H 20 Blood Pressure 195/98 H 187/107 H 182/97 H Pulse Oximetry 95 98 12/28/21 00:00 12/28/21 03:59 12/28/21 04:00 Temperature 36.4 C L Pulse Rate 105 H 111 H Re
--- NOTE | 2021-12-28 09:12 | PM.IMPN ---
Progress Note: A&P Assessment and Plan (1) Atypical chest pain: Code(s): R07.89 - Other chest pain Status: Acute Assessment and Plan: -serial troponins negative -reviewed EKG -admitted to IMU w/ telemetry monitoring -cardiology consulted, he will continue to follow but no specific cardiac recommendations at this time (2) Acute pancreatitis: Code(s): K85.90 - Acute pancreatitis without necrosis or infection, unspecified Status: Acute Assessment and Plan: -as seen on CT -lipase 6946 on arrival -LFTs and bili normal -NPO -IVF, antiemetics, and pain control -check RUQ US -pt denies drinking etoh, no prior hx of pancreatitis -GI consult appreciated (3) Acute thrombosis of splenic vein: Code(s): I82.890 - Acute embolism and thrombosis of other specified veins Status: Acute Assessment and Plan: -non occlusive according to CT -has been on Eliquis, will continue this for now but we should probably think about switching him to something else as he did develop this thrombus while reportedly being compliant with his eliquis -GI consulted (4) Diabetes mellitus with hyperglycemia: Code(s): E11.65 - Type 2 diabetes mellitus with hyperglycemia Status: Acute Assessment and Plan: -Holding Farxiga, holding Tradjenta -glucose 461 on arrival -check A1c -Insulin sliding scale high dose w/ 10 units of Lantus -will continue to make adjustments as indicated (5) Hypomagnesemia: Code(s): E83.42 - Hypomagnesemia Status: Acute Assessment and Plan: -mild -replaced w/ 2 g IV -recheck mag tomorrow (6) Hypoxia: Code(s): R09.02 - Hypoxemia Status: Acute Assessment and Plan: -on 3L NC, does not wear home oxygen -also tachycardic -is high risk for PE as he has an acute thrombus already in the splenic vein -just had IV contrast last night so will check VQ to r/o PE, also venous dopplers Subjective Date/time seen: 12/28/21 09:12 Interval history: 61-year-old male with past medical history significant for type 2 diabetes mellitus, coronary artery disease, obesity, hypertension, dyslipidemia, hepatic steatosis, who presented to the hospital for chest pain and abdominal pain and was found to have acute splenic thrombosis and acute pancreatitis. Today patient does not feel well. Continues to have epigastric, LUQ, and LLQ pain. Has nausea but no vomiting. No diarrhea or constipation. Denies sob though is noted to be on 3L NC. Review of Systems Review of Systems: All systems reviewed & are unremarkable except as noted in HPI and below Exam Narrative: General: mildly ill appearing, appears uncomfortable, morbidly obese Eyes: PERRL, no scleral icterus HEENT: NCAT, MMM, poor dentition throughout with multiple missing teeth Respiratory: No respiratory distress, Lungs CTA bilaterally, no wheezing Cardiovascular: tachycardic, regular rhythm Abdominal: Soft, moderate ttp epigastric, LUQ, and LLQ, non distended, no rebound or guarding Musculoskeletal: Moves all 4 extremities, no edema Neurological: A/Ox3, speech clear, no facial asymmetry Skin: Warm, dry, no rashes Psychiatric: Normal affect, normal mood Objective Data Vital Signs Vital Signs: Vital Signs - 24 hr 12/27/21 15:57 12/27/21 16:05 12/27/21 16:06 Temperature Pulse Rate 110 H 112 H 110 H Respiratory Rate 13 25 H 16 Blood Pressure 146/104 H 146/104 H Pulse Oximetry 88 L 90 93 12/27/21 16:08 12/27/21 16:09 12/27/21 16:15 Temperature 98.2 F Pulse Rate 107 H 106 H Respiratory Rate 24 H Blood Pressure Pulse Oximetry 96 93 12/27/21 16:24 12/27/21 16:25 12/27/21 16:30 Temperature Pulse Rate 102 H 102 H 98 Respiratory Rate 22 H 21 H 16 Blood Pressure 148/94 H Pulse Oximetry 95 96 12/27/21 16:31 12/27/21 16:32 12/27/21 16:58 Temperature Pulse Rate 65 73 99 Respiratory Rate 21 H 22 H
--- NOTE | 2021-12-28 09:21 | WPDGICN ---
Assessment and Plan Assessment and plan (1) Acute pancreatitis: Code(s): K85.90 - Acute pancreatitis without necrosis or infection, unspecified Status: Acute Assessment and Plan: at this point etiology of his pancreatitis is unknown. I will check his lipids. No biliary tract disease is seen on CT. Also liver enzymes are normal as is the bilirubin. He does not drink alcohol. I explained him that getting over pancreatitis is a slow process and will be painful for few days. We will try to keep his pain managed. I explained him that because the pancreas is involved indigestion, that we will not be able to feed him until he feels better. his lipid panel has come back just now and triglycerides are over 700. Therefore his pancreatitis is likely due to hyperlipidemia, but we will also recheck his gallbladder with an ultrasound in the morning (2) Acute thrombosis of splenic vein: Code(s): I82.890 - Acute embolism and thrombosis of other specified veins Status: Acute Assessment and Plan: oddly, he was on Eliquis on admission and remains on that now. Perhaps the thrombosis will resolve with anticoagulation and resolution of his pancreatitis (3) Diabetes mellitus with hyperglycemia: Code(s): E11.65 - Type 2 diabetes mellitus with hyperglycemia Status: Acute Assessment and Plan: poorly controlled. (4) Hyperlipidemia: Code(s): E78.5 - Hyperlipidemia, unspecified Status: Acute Assessment and Plan: As suspected, triglycerides are over 700 and is probably a factor in his pancreatitis. I think that this patient needs dietary counseling. It is clear that he does not comply with his diabetic diet. GI Consult Note Consult date/time: 12/28/21 09:21 HPI: Edinson Sims is a 61 year old male who was admitted yesterday with abdominal pain that began 2 days ago. The pain has gradually increased in intensity and is primarily up and down the left side of his abdomen. It is worst in the left upper quadrant. He has been found to have pancreatitis with a lipase of 6900. He has never had pancreatitis before. He states that he has not had any alcohol in a long time. Formerly he had been a moderately heavy drinker. He has been nauseated. He vomited few times but not since admission. He would like to have some thing to drink because he feels dry. His weight has been stable. A CT scan shows splenic vein thrombosis and pancreatitis. He states that he has had elevation of his lipids and is on medication for that. His BUN and creatinine are increasing somewhat suggesting that he is dehydrated. We will increase his IV fluid rate. he came in with a blood sugar of 400 and is still elevated today in the 300s. Clearly his diabetes has not been well controlled. [facility] Past Medical History Medical History Coronary artery disease Hypercholesterolemia Hypertension Surgical History Surgical History Hx of CABG Family History Family History Father Acute myocardial infarction Diabetes mellitus Mother Acute myocardial infarction Chronic obstructive pulmonary disease Sibling Diabetes mellitus Social History Social History Smoking status: Former smoker Smoking end date: 12/18/20 Alcohol intake: former Substance use: never Substance use type: does not use Spiritual care concerns: No Meds Home Medications and Allergies Home Medications Medication Instructions Recorded Confirmed Type acetaminophen 500 mg PO DAILY PRN 11/27/20 12/27/21 History aspirin 81 mg PO DAILY 11/27/20 12/27/21 History atorvastatin 80 mg PO DAILY 11/27/20 12/27/21 History cholecalciferol (vitamin D3) 25 mcg PO DAILY 11/27/20 12/27/21 History [Vitamin D3] evolocumab [Re
[2021-12-28 10:09] LABS: Hemoglobin A1C 9.8 % (<5.7)
[2021-12-28 10:22] LABS: Cholesterol 204 mg/dL (0-200)
[2021-12-28 10:46] LABS: Triglycerides 794 mg/dL (<150)
[2021-12-28 10:47] LABS: LDL Cholesterol Direct < 30 mg/dL
[2021-12-28] MEDS: MAGNESIUM SULF 2 GM/WATER 50ML 2 GM/50 ML BAG IVPB (11:12)
[2021-12-28 12:17] LABS: Glucose Point of Care 353 mg/dl (65-105)
[2021-12-28] MEDS: ACETAMINOPHEN 500 MG TABLET PO (16:25)
[2021-12-28 17:29] LABS: Glucose Point of Care 364 mg/dl (65-105)
[2021-12-28 20:28] LABS: Glucose Point of Care 259 mg/dl (65-105)
[2021-12-28] MEDS: INSULIN GLARGINE (*BKC) 100 UNITS/ML 10 UNITS SUB-Q (20:40)
[2021-12-29] VITALS (15 sets, daily range): BP systolic 126–147; BP diastolic 65–85; PULSE 84–102; RESP 20–22; TEMP 35.9–37.3; O2SAT 93–97; BMI 43.6
[2021-12-29] MEDS: LACTATED RINGERS 1,000 ML 125 ML IV CONT (02:54)
[2021-12-29] MEDS: MORPHINE SULFATE (*CRX) 4 MG/ML INJ IV PUSH ×3 (05:33→20:10)
[2021-12-29 05:55] LABS: Hemoglobin 14.7 g/dL (14.0-18.0); Mean Corpuscular HGB Conc 33.4 g/dl (32-36); Mean Corpuscular Hemoglobin 30.2 pg (26-34); Mean Corpuscular Volume 90.5 fl (80-100); Platelet Count Result 246 k/mm3 (150-375); Red Blood Count 4.86 M/mm3 (4.6-6.20); Red Cell Distribution Width 13.1 % (11.5-14.5); White Blood Count 14.8 K/mm3 (4.5-10.0)
[2021-12-29 06:04] LABS: Alanine Aminotransferase 16 U/L (6-50); Albumin Level 3.5 g/dL (3.5-5.1); Alkaline Phosphatase 63 U/L (38-126); Anion Gap 6 mmol/L (8-16); Aspartate Amino Transferase 21 U/L (17-59); Bilirubin,Total 0.9 mg/dL (0.2-1.3); Blood Urea Nitrogen 33 mg/dL (9-20); Calcium 9.4 mg/dL (8.4-10.2); Carbon Dioxide 35 mmol/L (22-30); Chloride 88 mmol/L (98-107); Estimated CRCL calculation 59 ml/min; Estimated Glomerular Filt Rate 48; Glucose 253 mg/dL (65-110); Lipase 626 U/L (23-300); Magnesium 1.6 mg/dL (1.6-2.3); Potassium 3.5 mmol/L (3.4-5.0); Sodium 129 mmol/L (137-145)
--- NOTE | 2021-12-29 06:54 | WPDGIPROGNO ---
Progress Note: A&P Assessment and Plan (1) Acute pancreatitis: Code(s): K85.90 - Acute pancreatitis without necrosis or infection, unspecified Status: Acute Assessment and Plan: at this point etiology of his pancreatitis is unknown. I will check his lipids. No biliary tract disease is seen on CT. Also liver enzymes are normal as is the bilirubin. He does not drink alcohol. I explained him that getting over pancreatitis is a slow process and will be painful for few days. We will try to keep his pain managed. I explained him that because the pancreas is involved indigestion, that we will not be able to feed him until he feels better. his lipid panel has come back just now and triglycerides are over 700. Therefore his pancreatitis is likely due to hyperlipidemia, but we will also recheck his gallbladder with an ultrasound in the morning 12/29 ultrasound was negative. Triglycerides were markedly elevated and I suspect this is the cause of his pancreatitis. I told that it is extremely important that he get his diet under control in terms of blood sugar and triglycerides and I told that once a person has had pancreatitis, recurrences are much more likely. (2) Acute thrombosis of splenic vein: Code(s): I82.890 - Acute embolism and thrombosis of other specified veins Status: Acute Assessment and Plan: oddly, he was on Eliquis on admission and remains on that now. Perhaps the thrombosis will resolve with anticoagulation and resolution of his pancreatitis (3) Diabetes mellitus with hyperglycemia: Code(s): E11.65 - Type 2 diabetes mellitus with hyperglycemia Status: Acute Assessment and Plan: poorly controlled. (4) Hyperlipidemia: Code(s): E78.5 - Hyperlipidemia, unspecified Status: Acute Assessment and Plan: As suspected, triglycerides are over 700 and is probably a factor in his pancreatitis. I think that this patient needs dietary counseling. It is clear that he does not comply with his diabetic diet. Subjective Date/time seen: 12/28 Edinson Sims is a 61 year old male who was admitted yesterday with abdominal pain that began 2 days ago. The pain has gradually increased in intensity and is primarily up and down the left side of his abdomen. It is worst in the left upper quadrant. He has been found to have pancreatitis with a lipase of 6900. He has never had pancreatitis before. He states that he has not had any alcohol in a long time. Formerly he had been a moderately heavy drinker. He has been nauseated. He vomited few times but not since admission. He would like to have some thing to drink because he feels dry. His weight has been stable. A CT scan shows splenic vein thrombosis and pancreatitis. He states that he has had elevation of his lipids and is on medication for that. His BUN and creatinine are increasing somewhat suggesting that he is dehydrated. We will increase his IV fluid rate. he came in with a blood sugar of 400 and is still elevated today in the 300s. Clearly his diabetes has not been well controlled. 12/29/21 06:54 He is feeling only marginally better. No longer nauseated, willing to try some clear liquids. His ultrasound was negative for gallstones. I discussed again pancreatitis with him and told that this is likely due to the marked hypertriglyceridemia. He states he quit drinking about a year ago. He admitted that he has not been following his dietary regimen which explains the course the fact that his blood sugar was so high on admission. Exam Const: General: alert Nutritional Appearance: obese Orientation/consciousness: patient oriented x3 Resp: Auscultation: clear to auscultation bilaterally Cardio: Rhythm: regular rhythm GI: Auscultation: normal bowel sounds Neuro: General: patient oriented x3 Objective Data Vital Signs Vital Signs: Vital Signs - 24 hr 12/28/21 07:47 12/28/21 07:53 12/28/21 08:30 [place]
[2021-12-29 07:17] LABS: Band Neutrophils Percent 7 % (0-6); Lymphocytes Absolute Manual 2.22 K/mm3 (1.1-4.5); Monocytes Absolute Manual 1.18 K/mm3 (0.1-0.90); Monocytes Percent Manual 8 % (3-9); Neutrophils Absolute Manual 11.39 K/mm3 (1.3-6.7); Neutrophils Percent Manual 70 % (46-73); Total Cells Counted 100
[2021-12-29 07:18] LABS: Platelet Estimate Adequate (Adequate)
--- NOTE | 2021-12-29 07:48 | PM.IMPN ---
Progress Note: A&P Assessment and Plan (1) Acute thrombosis of splenic vein: Code(s): I82.890 - Acute embolism and thrombosis of other specified veins Status: Acute Assessment and Plan: -non occlusive according to CT -states he has been compliant with his Eliquis -GI consulted and following -hematology Dr. Kearney consulted, discussed with him and he recommends switching Eliquis to heparin while inpatient as he failed treatment on Eliquis. He will see the patient in consult to determine best course of anticoagulation moving forward. (2) Acute pancreatitis: Code(s): K85.90 - Acute pancreatitis without necrosis or infection, unspecified Status: Acute Assessment and Plan: -as seen on CT -lipase 6946 on arrival -LFTs and bili normal -NPO -IVF, antiemetics, and pain control -RUQ US - region of pancreas obscured by shadowing bowel gas -pt denies drinking etoh, no prior hx of pancreatitis -triglycerides 794, likely the etiology of his acute pancreatitis -hog raiser consulted placed -GI following (3) JOYA (acute kidney injury): Code(s): N17.9 - Acute kidney failure, unspecified Status: Acute Assessment and Plan: -normal baseline renal function -creat today 1.5 -secondary to dehydration, IV contrast, acute illness? -was on LR @ 125/hr, this was switched to NS today secondary to hyponatremia -may need CTA if VQ scan is non diagnostic for PE, nephrology consulted for this reason (4) Hypoxia: Code(s): R09.02 - Hypoxemia Status: Acute Assessment and Plan: -on 4L NC, does not wear home oxygen -also tachycardic -is high risk for PE as he has an acute thrombus already in the splenic vein -just had IV contrast so will check VQ to r/o PE, also venous dopplers -does have JOYA as well preventing CTA at this time -he was started on a heparin drip for the splenic vein clot (5) Atypical chest pain: Code(s): R07.89 - Other chest pain Status: Acute Assessment and Plan: -serial troponins negative -reviewed EKG -admitted to IMU w/ telemetry monitoring -cardiology consulted, he will continue to follow but no specific cardiac recommendations at this time -he does mention in his note to avoid anticoagulation in the event patient should require any type of procedure. I discussed this with him and he has no plans to take patient to the [facility]. As patient does indeed have an acute thrombus, he will remain on anticoagulation at this time. As above, Dr. Kearney has recommended switching pt from Eliquis to heparin which was done today. If cardiology feels there needs to be any procedural intervention, then they may hold the heparin at that time. (6) Diabetes mellitus with hyperglycemia: Code(s): E11.65 - Type 2 diabetes mellitus with hyperglycemia Status: Acute Assessment and Plan: -Holding Farxiga, holding Tradjenta -glucose 461 on arrival -A1c 9.8 -Insulin sliding scale high dose w/ 15 units of Lantus -will continue to make adjustments as indicated -consult to critical care educator (7) Hypertriglyceridemia: Code(s): E78.1 - Pure hyperglyceridemia Status: Acute Assessment and Plan: -triglycerides 794 -likely cause of his acute pancreatitis -hog raiser consult appreciated (8) Hyponatremia: Code(s): E87.1 - Hypo-osmolality and hyponatremia Status: Acute Assessment and Plan: -129 today -was on LR, switched to NS today -nephrology consulted (9) Hypomagnesemia: Code(s): E83.42 - Hypomagnesemia Status: Acute Assessment and Plan: -mild at 1.3 -replaced w/ 2 g IV -normalized today at 1.6 -monitor Subjective Date/time seen: 12/29/21 07:48 Interval history: 61-year-old male with past medical history significant for type 2 diabetes mellitus, coronary artery disease, obesity, hypertension, dyslipidemia, hepatic steatos
[2021-12-29] MEDS: SODIUM CHLORIDE 0.9% IV 1,000 ML 100 ML IV CONT ×2 (08:37→18:50)
[2021-12-29] MEDS: CHOLECALCIFEROL 1,000 UNITS TABLET 1000 UNITS PO (08:39)
[2021-12-29] MEDS: ATORVASTATIN 40 MG TABLET 80 MG PO (08:39)
[2021-12-29] MEDS: FAMOTIDINE 20 MG TABLET PO ×2 (08:40→17:31)
[2021-12-29] MEDS: METOPROLOL TARTRATE 12.5 MG TABLET PO ×2 (08:40→21:07)
[2021-12-29] MEDS: SPIRONOLACTONE 25 MG TABLET PO (08:40)
[2021-12-29] MEDS: GABAPENTIN 100 MG CAPSULE PO ×3 (08:40→17:31)
[2021-12-29] MEDS: AMIODARONE HCL 200 MG TABLET PO (08:40)
[2021-12-29] MEDS: INSULIN ASPART (*BKC) 100 UNITS/ML 6 UNITS SUB-Q ×3 (08:42→17:31)
[2021-12-29] MEDS: ASPIRIN 81 MG CHEWABLE TABLET PO (08:42)
[2021-12-29] MEDS: INSULIN ASPART (*BKC) 100 UNITS/ML SUB-Q ×3 (08:42→17:31)
[2021-12-29] MEDS: HEPARIN SODIUM 5,000 UNITS/ML VIAL 7000 UNITS IV PUSH ×2 (08:46→15:11)
[2021-12-29] MEDS: HEPARIN SOD/D5W 100 UNITS/ML 25,000 UNITS/250 ML BAG 15 UNITS IV CONT (08:50)
[2021-12-29 08:59] LABS: Glucose Point of Care 265 mg/dl (65-105)
[2021-12-29 09:11] LABS: INR 1.5; Prothrombin Time 17.4 Seconds (11.1-14.7)
[2021-12-29 09:12] LABS: Partial Thromboplastin Time 32.4 SECONDS (22.3-36.8)
--- NOTE | 2021-12-29 11:40 | PM.PNCARD ---
Progress Note: A&P Assessment and Plan (1) Atypical chest pain: Code(s): R07.89 - Other chest pain Status: Acute Assessment and Plan: No evidence of ACS. Pain probably secondary to his acute pancreatitis. Cardiology will sign off for now. Please do not hesitate to call with any questions. (2) Acute pancreatitis: Code(s): K85.90 - Acute pancreatitis without necrosis or infection, unspecified Status: Acute Assessment and Plan: Management per GI, hospitalist service (3) Acute thrombosis of splenic vein: Code(s): I82.890 - Acute embolism and thrombosis of other specified veins Status: Acute Assessment and Plan: Being anticoagulated with heparin Subjective Date/time seen: 12/29/21 11:40 Cardiology follow up for chest pain No significant changes, still having abdominal pain today. Denies any chest pain. Has some mild shortness of breath on 2L O2. Review of Systems Constitutional: Constitutional: Reports no additional constitutional complaints Eyes: Eyes: Reports no additional eye complaints ENT: Reports system reviewed and no additional complaints, except as documented Cardiovascular: Cardiovascular: Reports as per HPI Respiratory: Respiratory: Reports as per HPI Gastrointestinal: Gastrointestinal: Reports no additional gastrointestinal complaints Musculoskeletal: Musculoskeletal: Reports no additional musculoskeletal complaints Integumentary/Breasts: Skin/Breast: Reports system reviewed and no additional complaints, except as docu Neurologic: Reports system reviewed and no additional complaints, except as documented Endocrine: Endocrine: Reports no additional endocrine complaints Hematologic/Lymphatic: Hematologic/Lymphatic: Reports no additional hematologic/lymphatic complaints Allergic/Immunologic: Allergic/Immunologic: Reports no additional allergic/immunologic complaints Exam Const: General: comfortable, no acute distress and uncomfortable Other: Obese gentleman resting comfortably in bed HENMT: Mouth: Yes moist mucous membranes Eyes: Sclera: sclerae normal Pupils: Equal, round and reactive pupils present Neck: Neck: supple and no JVD Resp: Effort & Inspection: normal respiratory effort Auscultation: rhonchi Other: Cardio: Rate: regular rate and tachycardic Rhythm: regular rhythm Other: no murmur no rub GI: Auscultation: normal bowel sounds Other: Some epigastric tenderness Skin: General skin exam: normal color Neuro: Cranial nerves: Yes Equal, round and reactive pupils present Cognition (Neuro): normal cognition Extrem: General: normal to inspection and no edema Objective Data Vital Signs Vital Signs: Vital Signs - 24 hr 12/28/21 12:00 12/28/21 16:00 12/28/21 20:00 Temperature 36.3 C L 37.0 C 36.9 C Pulse Rate 99 101 H 98 Respiratory Rate 18 18 22 H Blood Pressure 145/92 H 125/72 144/86 H Pulse Oximetry 92 95 96 12/28/21 20:40 12/28/21 22:00 12/28/21 23:37 Temperature 36.3 C L Pulse Rate 98 94 96 Respiratory Rate 22 H Blood Pressure 134/80 Pulse Oximetry 97 12/29/21 00:00 12/29/21 02:00 12/29/21 03:23 Temperature 36.3 C L Pulse Rate 102 H 95 101 H Respiratory Rate 22 H 22 H Blood Pressure 147/85 H Pulse Oximetry 97 96 12/29/21 03:47 12/29/21 06:00 12/29/21 08:00 Temperature Pulse Rate 102 H 98 94 Respiratory Rate 22 H Blood Pressure Pulse Oximetry 96 95 12/29/21 08:03 12/29/21 10:00 Temperature 35.9 C L Pulse Rate 95 86 Respiratory Rate 22 H Blood Pressure 127/67 Pulse Oximetry 93 Intake/Output Intake/Output: Intake & Output 12/26/21 12/27/21 12/28/21 12/29/21 23:59 23:59 23:59 23:59 Intake Total 500 3000 1000 Output Total 300 875 350 Balance 200 2125 650 Meds/Results Medications: Active Medications Generic Name Dose Route Start Last Admin Trade Name Freq PRN Reason Stop Dose Admin Acetaminophen 500 mg 12/27/21 22:26
[2021-12-29 11:48] LABS: Glucose Point of Care 253 mg/dl (65-105)
--- NOTE | 2021-12-29 11:51 | PCDIET ---
RDN consulted for elevated TG and pancreatitis. See nutritional teachings for more information.
--- NOTE | 2021-12-29 12:31 | PM.CNNEP ---
Assessment and Plan Assessment and plan (1) JOYA (acute kidney injury): Code(s): N17.9 - Acute kidney failure, unspecified Status: Acute Assessment and Plan: suspect secondary to pre-renal factors, contrast exposure, and pancreatitis imaging to date does not report any acute pathology/obstruction check urine electrolytes and CPK agree with trial of IVF hydration follow I/Os and repeat labs (2) Hyponatremia: Code(s): E87.1 - Hypo-osmolality and hyponatremia Status: Acute Assessment and Plan: presumably secondary to JOYA/ARF follow-up on urine electrolytes check TSH, cortisol, and serum/urine osmolality follow trend of repeat sodium levels (3) Acute thrombosis of splenic vein: Code(s): I82.890 - Acute embolism and thrombosis of other specified veins Status: Acute Assessment and Plan: as noted by imaging on heparin gtt Hem/Onc consultation - hypercoagulable state? (4) Acute pancreatitis: Code(s): K85.90 - Acute pancreatitis without necrosis or infection, unspecified Status: Acute Assessment and Plan: elevated lipase noted along with CT scan findings Gastroenterology following supportive therapy (5) Hypoxia: Code(s): R09.02 - Hypoxemia Status: Acute Assessment and Plan: concern is for PE V/Q scan inconclusive may need to consider CTA if renal function can tolerate (6) Atypical chest pain: Code(s): R07.89 - Other chest pain Status: Acute Assessment and Plan: Cardiology recommnedations noted no felt to be related to ACS (7) Diabetes: Code(s): E11.9 - Type 2 diabetes mellitus without complications Status: Chronic Assessment and Plan: follow accuchecks glycemic control Will continue to follow. History of Present Illness Reason for Consult Consult date: 12/29/21 Reason for consult: acute renal failure and hyponatremia Chief Complaint Chief complaint: atypical chest pain, acute pancreatitis History of Present Illness Narrative: The patient is a 61-year-old male with a past medical history as outlined below who presented to [facility] Emergency room with complaints of chest and abdominal pain. The patient is a the the chest pain was localized to the precordial area in the abdominal pain was closer to the epigastric area. It was nonradiating and has been present for least 1-2 days prior to his presentation to the emergency room. He had no other associated symptoms with regard to shortness of breath, cough, fevers, chills, dizziness, lightheadedness, lower extremity edema, nausea, vomiting, or diarrhea. Workup and evaluation in the emergency room demonstrated the patient be hemodynamically stable but in moderate distress secondary to the pain. Routine blood test demonstrated significant hyperglycemia, and elevated lipase level, and mild hyponatremia. With a CT scan of chest, abdomen, and pelvis was significant for an acute splenic vein thrombosis and evidence of pancreatitis. Given these findings as well as the constellation of symptoms that led to his presentation to the emergency room, he was admitted the hospital for further evaluation and therapy. Since his admission, he has been seen by Cardiology who do not feel his chest pain is related to acute coronary syndrome. However, he has an elevated D-dimer and there is some concern for the possibility of a pulmonary embolism. A V/Q scan has been already done which has reported as intermediate probability and there was consideration for a CT scan with PE protocol but this was deferred as his creatinine was elevated today by a.m. labs. Renal consultation was requested due to his acute kidney injury/acute renal failure. For review his his labs in the [facility], his creatinine on admission was 1.2 mg/dL but in previous testing in the last year, it was well within normal limits at around 0.6-0.7 mg/
[2021-12-29 15:06] LABS: Partial Thromboplastin Time 46.3 SECONDS (22.3-36.8)
[2021-12-29 17:37] LABS: Glucose Point of Care 419 mg/dl (65-105)
--- NOTE | 2021-12-29 17:56 | PC.NURSE ---
This patient, Edinson Sims, was received from [IMU] on 12/29/21 at 1756. Patient/family oriented to unit policies and routines
--- NOTE | 2021-12-29 19:36 | PDONCCN ---
HPI - Date of Consult Date/Time: 12/29/21 19:36 Requesting Physician: Brenda Ramires PA-C Primary Care Provider: Iwona Lentz, - Consult Narrative Reason for consult: Hypercoagulable state Narrative: Edinson Sims is a 61 year old male with past medical history significant for coronary artery disease status post 6 stent placement in the past and coronary artery bypass grafting on December 23, 2020 along with history of obesity, type 2 diabetes, hypertension and hyperlipidemia came into the hospital with chest pain localized to the precordial and epigastric region starting day before the admission. Patient has not been very active at home. CT of abdomen and pelvis showed acute splenic vein thrombosis and pancreatitis. V/Q scan also showed intermediate probability for PE. Doppler study showed no evidence of DVT. He was already on Eliquis for his coronary artery disease and previous bypass surgery. There is a strong family history of coronary artery disease and heart problem. His lifestyle it quite sedentary is and has not been working since the COVID infection. Review of Systems - Review of Systems All systems reviewed & are unremarkable except as noted in HPI and bel - Neurologic Reports system reviewed and no additional complaints, except as documented, Denies vertigo, Denies focal weakness, Denies sensory deficit, Denies weakness PMFSH Medical History: Medical History (Last Updated 12/29/21 @ 07:50 by Brenda Ramires PA-C) Coronary artery disease Hypercholesterolemia Hypertension Surgical History: Surgical History (Last Reviewed 12/28/21 @ 11:42 by Tano Arguello MD) Hx of CABG Family History: Family History (Last Reviewed 12/28/21 @ 11:42 by Tano Arguello MD) Father Acute myocardial infarction Diabetes mellitus Mother Acute myocardial infarction Chronic obstructive pulmonary disease Sibling Diabetes mellitus - Social History Social History: Social History (Last Reviewed 12/28/21 @ 11:42 by Tano Arguello MD) Alcohol Use: Alcohol intake: former Substance Use: Substance use: never Substance use type: does not use Others: Spiritual care concerns: No Smoking Status: Smoking status: Former smoker Smoking end date: 12/18/20 Meds Home Medications Medication Instructions Recorded Confirmed Type acetaminophen 500 mg PO DAILY PRN 11/27/20 12/27/21 History aspirin 81 mg PO DAILY 11/27/20 12/27/21 History atorvastatin 80 mg PO DAILY 11/27/20 12/27/21 History cholecalciferol (vitamin D3) 25 mcg PO DAILY 11/27/20 12/27/21 History [Vitamin D3] evolocumab [Repatha Syringe] See Rx Instructions .ROUTE .COMPLEX 11/27/20 12/27/21 History amiodarone 200 mg PO DAILY 12/27/21 12/27/21 History apixaban [Eliquis] 5 mg PO BID 12/27/21 12/27/21 History dapagliflozin [Farxiga] 10 mg PO DAILY 12/27/21 12/27/21 History famotidine 20 mg PO BID 12/27/21 12/27/21 History furosemide 40 mg PO BID 12/27/21 12/27/21 History gabapentin 100 mg PO TID 12/27/21 12/27/21 History linagliptin [Tradjenta] 5 mg PO DAILY 12/27/21 12/27/21 History methocarbamol 750 mg PO TID PRN 12/27/21 12/27/21 History metoprolol tartrate 25 mg PO BID 12/27/21 12/27/21 History sennosides-docusate sodium [Senna 8.6 - 50 tab-cap PO BID PRN 12/27/21 12/27/21 History Plus] spironolactone 25 mg PO DAILY 12/27/21 12/27/21 History Allergies Allergy/AdvReac Type Severity Reaction Status Date / Time No Known Allergies Allergy Unknown Verified 12/27/21 16:24 Results - Labs CBC & Chem 7: 12/29/21 05:17 12/29/21 05:17 Labs: Short CBC 12/29/21 Range/Units 05:17 WBC 14.8 H (4.5-10.0) K/mm3 Hgb 14.7 (14.0-18.0) g/dL Hct 44.0 (42.0-52.0) % Plt Count 246 (150-375) k/mm3 BMP 12/29/21 05:17 Sodium 129 L Potassium 3.5 Chloride 88 L Carbon Dioxide 35 H BUN 33 H Creatinine 1.50 H Glucose 253 H Calcium 9.4 Liver Function
[2021-12-29] MEDS: INSULIN GLARGINE (*BKC) 100 UNITS/ML 15 UNITS SUB-Q (20:13)
[2021-12-29 21:13] LABS: Glucose Point of Care 269 mg/dl (65-105)
[2021-12-29 21:25] LABS: Partial Thromboplastin Time 74.6 SECONDS (22.3-36.8)
[2021-12-29] MEDS: HEPARIN SOD/D5W 100 UNITS/ML 25,000 UNITS/250 ML BAG 18 UNITS IV CONT (23:28)
[2021-12-30] VITALS (15 sets, daily range): BP systolic 102–144; BP diastolic 56–68; PULSE 73–95; RESP 18–20; TEMP 36.2–37; O2SAT 94–99
[2021-12-30] MEDS: MORPHINE SULFATE (*CRX) 4 MG/ML INJ IV PUSH ×8 (00:51→23:01)
[2021-12-30 00:59] LABS: Glucose Point of Care 237 mg/dl (65-105)
[2021-12-30] MEDS: HEPARIN SODIUM 5,000 UNITS/ML VIAL 7000 UNITS IV PUSH ×2 (04:43→17:32)
[2021-12-30 05:58] LABS: Creatine Kinase 23 U/L (55-170); Thyroid Stimulating Hormone Reflex 0.464 uIU/mL (0.465-4.68)
[2021-12-30 06:06] LABS: Alanine Aminotransferase 14 U/L (6-50); Albumin Level 3.2 g/dL (3.5-5.1); Alkaline Phosphatase 65 U/L (38-126); Anion Gap 6 mmol/L (8-16); Aspartate Amino Transferase 23 U/L (17-59); Bilirubin,Total 0.6 mg/dL (0.2-1.3); Blood Urea Nitrogen 31 mg/dL (9-20); Carbon Dioxide 34 mmol/L (22-30); Chloride 91 mmol/L (98-107); Estimated CRCL calculation 68 ml/min; Estimated Glomerular Filt Rate 57; Glucose 238 mg/dL (65-110); Lipase 453 U/L (23-300); Magnesium 1.9 mg/dL (1.6-2.3); Sodium 131 mmol/L (137-145)
[2021-12-30 06:09] LABS: Potassium 2.8 mmol/L (3.4-5.0)
[2021-12-30 06:38] LABS: Partial Thromboplastin Time 49.1 SECONDS (22.3-36.8)
[2021-12-30] MEDS: POTASSIUM CHLORIDE INJ 40 MEQ in SODIUM CHLORIDE 0.9% IV 500 ML 130 MEQ IVPB (06:47)
[2021-12-30] MEDS: SODIUM CHLORIDE 0.9% IV 1,000 ML 100 ML IV CONT ×2 (06:47→14:02)
[2021-12-30] MEDS: POTASSIUM CHLORIDE 20 MEQ TABLET 40 MEQ PO (06:48)
[2021-12-30 06:53] LABS: Free T4 Free Thyroxine Reflex 2.17 ng/dL (0.78-2.19)
[2021-12-30 06:59] LABS: Basophils Absolute Auto 0.1 K/mm3 (0.0-0.1); Basophils Percent Auto 0.5 % (0.2-1.2); Eosinophils Absolute Auto 0.1 K/mm3 (0-0.3); Eosinophils Percent Auto 1.5 % (0-4.4); Hematocrit 53.5 % (42.0-52.0); Hemoglobin 17.5 g/dL (14.0-18.0); Immature Granulocyte Absolute 0.07 K/mm3 (0.00-0.031); Immature Granulocyte Percent A 0.7 % (0-0.5); Lymphocytes Absolute Auto 1.68 K/mm3 (0.9-3.2); Lymphocytes Percent Auto 17.8 % (18.3-44.2); Mean Corpuscular HGB Conc 32.7 g/dl (32-36); Mean Corpuscular Hemoglobin 30.3 pg (26-34); Mean Corpuscular Volume 92.6 fl (80-100); Mean Platelet Volume 10.7 fl (7.4-10.4); Monocytes Absolute Auto 1.2 K/mm3 (0.1-0.6); Monocytes Percent Auto 12.5 % (2.6-8.5); Neutrophils Absolute Auto 6.3 K/mm3 (1.3-6.7); Platelet Count Result 175 k/mm3 (150-375); Red Blood Count 5.78 M/mm3 (4.6-6.20); Red Cell Distribution Width 13.2 % (11.5-14.5); White Blood Count 9.4 K/mm3 (4.5-10.0)
--- NOTE | 2021-12-30 07:21 | P.PNNP_ITS ---
Progress Note: A&P Assessment and Plan (1) JOYA (acute kidney injury): Code(s): N17.9 - Acute kidney failure, unspecified Status: Acute Assessment and Plan: * suspect secondary to pre-renal factors, contrast exposure, and pancreatitis * imaging to date does not report any acute pathology/obstruction * Urines not collected. * CK is okay. * Getting IV fluids. * Creatinine is now back to normal. (2) Hyponatremia: Code(s): E87.1 - Hypo-osmolality and hyponatremia Status: Acute Assessment and Plan: * presumably secondary to JOYA/ARF * follow-up on urine electrolytes * TSH is low but free T4 is normal. * Cortisol is only 10. Will check a Cortrosyn stim. * He is getting saline now. Will start a fluid restriction once he is off clear liquids * Will check a sodium level this afternoon. (3) Acute thrombosis of splenic vein: Code(s): I82.890 - Acute embolism and thrombosis of other specified veins Status: Acute Assessment and Plan: * as noted by imaging * on heparin gtt * Hem/Onc consultation - hypercoagulable state? (4) Acute pancreatitis: Code(s): K85.90 - Acute pancreatitis without necrosis or infection, unspecified Status: Acute Assessment and Plan: * elevated lipase noted along with CT scan findings * Gastroenterology following * supportive therapy (5) Hypoxia: Code(s): R09.02 - Hypoxemia Status: Acute Assessment and Plan: * concern is for PE * V/Q scan inconclusive * may need to consider CTA if renal function can tolerate * If his creatinine is normal tomorrow would be okay to do a CTA if still needed. (6) Atypical chest pain: Code(s): R07.89 - Other chest pain Status: Acute Assessment and Plan: * Cardiology recommnedations noted * no felt to be related to ACS (7) Diabetes: Code(s): E11.9 - Type 2 diabetes mellitus without complications Status: Chronic Assessment and Plan: * Management per hospitalists Subjective Date/time seen: 12/30/21 07:21 Interval history: Patient feels a little bit better today. Belly pain is gone. No chest pain or shortness of breath Review of Systems Cardiovascular: Cardiovascular: Reports no additional cardiovascular complaints Respiratory: Respiratory: Reports no additional respiratory complaints Gastrointestinal: Gastrointestinal: Reports no additional gastrointestinal complaints Genitourinary: Genitourinary: Reports no additional male genitourinary complaints Exam Narrative: WDWN in NAD skin no rash head ncat lungs clear cor reg no rub abd BS+ nontender and soft ext no edema. Objective Data Vital Signs Vital Signs: Vital Signs - 24 hr 12/29/21 08:03 12/29/21 08:00 12/29/21 08:00 Temperature 35.9 C L Pulse Rate 95 94 Respiratory Rate 22 H Blood Pressure 127/67 Pulse Oximetry 93 95 Oxygen Delivery Nasal Cannula Oxygen Flow Rate 4 12/29/21 10:00 12/29/21 11:55 12/29/21 12:00 Temperature 37.3 C Pulse Rate 86 88 Respiratory Rate 22 H Blood Pressure 126/70 Pulse Oximetry 94 95 Oxygen Delivery Nasal Cannula Oxygen Flow Rate 4 12/29/21 12:00
--- NOTE | 2021-12-30 07:21 | PM.PNNEP ---
Progress Note: A&P Assessment and Plan (1) JOYA (acute kidney injury): Code(s): N17.9 - Acute kidney failure, unspecified Status: Acute Assessment and Plan: suspect secondary to pre-renal factors, contrast exposure, and pancreatitis imaging to date does not report any acute pathology/obstruction Urines not collected. CK is okay. Getting IV fluids. Creatinine is now back to normal. (2) Hyponatremia: Code(s): E87.1 - Hypo-osmolality and hyponatremia Status: Acute Assessment and Plan: presumably secondary to JOYA/ARF follow-up on urine electrolytes TSH is low but free T4 is normal. Cortisol is only 10. Will check a Cortrosyn stim. He is getting saline now. Will start a fluid restriction once he is off clear liquids Will check a sodium level this afternoon. (3) Acute thrombosis of splenic vein: Code(s): I82.890 - Acute embolism and thrombosis of other specified veins Status: Acute Assessment and Plan: as noted by imaging on heparin gtt Hem/Onc consultation - hypercoagulable state? (4) Acute pancreatitis: Code(s): K85.90 - Acute pancreatitis without necrosis or infection, unspecified Status: Acute Assessment and Plan: elevated lipase noted along with CT scan findings Gastroenterology following supportive therapy (5) Hypoxia: Code(s): R09.02 - Hypoxemia Status: Acute Assessment and Plan: concern is for PE V/Q scan inconclusive may need to consider CTA if renal function can tolerate If his creatinine is normal tomorrow would be okay to do a CTA if still needed. (6) Atypical chest pain: Code(s): R07.89 - Other chest pain Status: Acute Assessment and Plan: Cardiology recommnedations noted no felt to be related to ACS (7) Diabetes: Code(s): E11.9 - Type 2 diabetes mellitus without complications Status: Chronic Assessment and Plan: Management per hospitalists Subjective Date/time seen: 12/30/21 07:21 Interval history: Patient feels a little bit better today. Belly pain is gone. No chest pain or shortness of breath Review of Systems Cardiovascular: Cardiovascular: Reports no additional cardiovascular complaints Respiratory: Respiratory: Reports no additional respiratory complaints Gastrointestinal: Gastrointestinal: Reports no additional gastrointestinal complaints Genitourinary: Genitourinary: Reports no additional male genitourinary complaints Exam Narrative: WDWN in NAD skin no rash head ncat lungs clear cor reg no rub abd BS+ nontender and soft ext no edema. Objective Data Vital Signs Vital Signs: Vital Signs - 24 hr 12/29/21 08:03 12/29/21 08:00 12/29/21 08:00 Temperature 35.9 C L Pulse Rate 95 94 Respiratory Rate 22 H Blood Pressure 127/67 Pulse Oximetry 93 95 Oxygen Delivery Nasal Cannula Oxygen Flow Rate 4 12/29/21 10:00 12/29/21 11:55 12/29/21 12:00 Temperature 37.3 C Pulse Rate 86 88 Respiratory Rate 22 H Blood Pressure 126/70 Pulse Oximetry 94 95 Oxygen Delivery Nasal Cannula Oxygen Flow Rate 4 12/29/21 12:00 12/29/21 14:00 12/29/21 16:00 Temperature Pulse Rate 93 93 90 Respiratory Rate Blood Pressure Pulse Oximetry Oxygen Delivery Oxygen Flow Rate 12/29/21 16:43 12/29/21 20:00 12/29/21 21:07 Temperature 36.7 C Pulse Rate 89 87 84 Respiratory Rate 20 Blood Pressure 127/69 Pulse Oximetry 94 93 Oxygen Delivery Nasal Cannula Oxygen Flow Rate 4 12/29/21 20:00 12/29/21 20:00 12/30/21 00:00 Temperature 36.9 C 37.0 C Pulse Rate 84 84 79 Respiratory Rate 20 20 20 Blood Pressure 142/65 H 135/64 Pulse Oximetry 94 94 94 Oxygen Delivery Nasal Cannula Oxygen Flow Rate 4 12/29/21 20:00 12/30/21 00:00 12/30/21 04:00 Temperature Pulse Rate 88 82 74 Respiratory Rate Blood Pressure Pulse Oximetry Oxygen Deliv
[2021-12-30 07:33] LABS: Total Triiodothyronine (T3) 0.75 NG/ML (0.97-1.69)
[2021-12-30 07:48] LABS: Glucose Point of Care 256 mg/dl (65-105)
[2021-12-30] MEDS: methocarbamoL 750 MG TABLET PO (08:28)
[2021-12-30] MEDS: GABAPENTIN 100 MG CAPSULE PO ×3 (08:28→17:32)
[2021-12-30] MEDS: SENNA/DOCUSATE SODIUM TABLET 1 TAB PO (08:28)
[2021-12-30] MEDS: AMIODARONE HCL 200 MG TABLET PO (08:28)
[2021-12-30] MEDS: ATORVASTATIN 40 MG TABLET 80 MG PO (08:28)
[2021-12-30] MEDS: SPIRONOLACTONE 25 MG TABLET PO (08:29)
[2021-12-30] MEDS: CHOLECALCIFEROL 1,000 UNITS TABLET 1000 UNITS PO (08:29)
[2021-12-30] MEDS: FAMOTIDINE 20 MG TABLET PO ×2 (08:30→17:31)
[2021-12-30] MEDS: COSYNTROPIN 0.25 MG/ML VIAL IV PUSH (08:36)
[2021-12-30] MEDS: METOPROLOL TARTRATE 12.5 MG TABLET PO ×2 (08:41→20:22)
[2021-12-30] MEDS: ASPIRIN 81 MG CHEWABLE TABLET PO (08:41)
[2021-12-30] MEDS: INSULIN ASPART (*BKC) 100 UNITS/ML SUB-Q ×3 (08:43→17:32)
[2021-12-30] MEDS: INSULIN ASPART (*BKC) 100 UNITS/ML 6 UNITS SUB-Q ×3 (08:43→17:33)
[2021-12-30 09:43] LABS: Partial Thromboplastin Time 64.8 SECONDS (22.3-36.8)
[2021-12-30] MEDS: HEPARIN SODIUM 5,000 UNITS/ML VIAL 3500 UNITS IV PUSH (10:09)
[2021-12-30 12:02] LABS: Glucose Point of Care 329 mg/dl (65-105)
[2021-12-30] MEDS: HEPARIN SOD/D5W 100 UNITS/ML 25,000 UNITS/250 ML BAG 23 UNITS IV CONT (12:29)
--- NOTE | 2021-12-30 12:55 | WPDGIPROGNO ---
Progress Note: A&P Assessment and Plan (1) Acute pancreatitis: Code(s): K85.90 - Acute pancreatitis without necrosis or infection, unspecified Status: Acute Assessment and Plan: at this point etiology of his pancreatitis is unknown. I will check his lipids. No biliary tract disease is seen on CT. Also liver enzymes are normal as is the bilirubin. He does not drink alcohol. I explained him that getting over pancreatitis is a slow process and will be painful for few days. We will try to keep his pain managed. I explained him that because the pancreas is involved indigestion, that we will not be able to feed him until he feels better. his lipid panel has come back just now and triglycerides are over 700. Therefore his pancreatitis is likely due to hyperlipidemia, but we will also recheck his gallbladder with an ultrasound in the morning 12/29 ultrasound was negative. Triglycerides were markedly elevated and I suspect this is the cause of his pancreatitis. I told that it is extremely important that he get his diet under control in terms of blood sugar and triglycerides and I told that once a person has had pancreatitis, recurrences are much more likely. (2) Acute thrombosis of splenic vein: Code(s): I82.890 - Acute embolism and thrombosis of other specified veins Status: Acute Assessment and Plan: oddly, he was on Eliquis on admission and remains on that now. Perhaps the thrombosis will resolve with anticoagulation and resolution of his pancreatitis. He has been started on heparin and per Dr. Kearney's recommendations will be switched to Lovenox at discharge (3) Diabetes mellitus with hyperglycemia: Code(s): E11.65 - Type 2 diabetes mellitus with hyperglycemia Status: Acute Assessment and Plan: poorly controlled. I again discussed diet with him and the importance of him adopting a healthy diet and healthy lifestyle. (4) Hyperlipidemia: Code(s): E78.5 - Hyperlipidemia, unspecified Status: Acute Assessment and Plan: As suspected, triglycerides are over 700 and is probably a factor in his pancreatitis. I think that this patient needs dietary counseling. It is clear that he does not comply with his diabetic diet. Subjective Date/time seen: 12/30/21 12:55 he continues to have abdominal pain. He has required morphine every 4 or 5 hours. He was seen by Hematology yesterday and is being investigated for possible hypercoagulable state. He is on heparin now and will be discharged on Lovenox 1 milligram/kilogram b.i.d.. He was questioning when he can eat again. I told that we would not want to feed him and challenge His pancreas until his pain has subsided. His lipase is coming down. I discussed his diet with him. He admits that he has been noncompliant with his diabetic diet and low-cholesterol diet. Also has a very sedentary lifestyle. He states he does not drive he does ,walk around the house a bit, he states that he does see his primary care provider, Dr. Wills every 3-4 months, but does not remember how often they check his labs Review of Systems Review of Systems: All systems reviewed & are unremarkable except as noted in HPI and below Exam Const: General: alert Nutritional Appearance: obese Orientation/consciousness: patient oriented x3 Resp: Auscultation: clear to auscultation bilaterally Cardio: Rhythm: regular rhythm GI: Inspection: distended and obesity GI Palp: Yes abdominal tenderness ( diffuse) Auscultation: normal bowel sounds and Hypoactive bowel sounds present Neuro: General: patient oriented x3 Objective Data Vital Signs Vital Signs: Vital Signs - 24 hr 12/29/21 14:00 12/29/21 16:00 12/29/21 16:43 Temperature 36.7 C Pulse Rate 93 90 89 Respiratory Rate 20 Blood Pressure 127/69 Pulse Oximetry 94 Oxygen Delivery Oxygen Flow Rate 12/29/21 20:00 12/29/21 21:07 12/29/21 20:00 Temperature 36.9 C
--- NOTE | 2021-12-30 13:01 | PCNSR ---
On 12/30/21, the student, Hollie Ornelas, provided care and completed [facility] documentation on this patient. I have reviewed the student's documentation and agree with the findings.
[2021-12-30 13:26] LABS: Anion Gap 5 mmol/L (8-16); Blood Urea Nitrogen 31 mg/dL (9-20); Carbon Dioxide 30 mmol/L (22-30); Chloride 93 mmol/L (98-107); Estimated CRCL calculation 73 ml/min; Estimated Glomerular Filt Rate > 60; Glucose 486 mg/dL (65-110); Potassium 3.8 mmol/L (3.4-5.0); Sodium 128 mmol/L (137-145)
--- NOTE | 2021-12-30 13:55 | PC.NURSE ---
Called Dr Hughes with 1pm BMP results
--- NOTE | 2021-12-30 14:45 | PM.IMPN ---
Progress Note: A&P Assessment and Plan (1) Acute thrombosis of splenic vein: Code(s): I82.890 - Acute embolism and thrombosis of other specified veins Status: Acute Assessment and Plan: -non occlusive, noted on admission CT -Reportedly compliant with his Eliquis -GI consulted and following -hematology Dr. Kearney consulted and appreciate recommendations. -12/30/21 Abdominal pain is improving. On heparin drip. Per Hem/Onc continue heparin drip, transition to Lovenox 1 mg/kg BID x 14 days upon discharge and then follow up to start Xarelto. (2) Acute pancreatitis: Code(s): K85.90 - Acute pancreatitis without necrosis or infection, unspecified Status: Acute Assessment and Plan: -Noted on admission CT; lipase 6946 on arrival -LFTs and bili normal -Clear liquid diet. -Continue IVF, antiemetics, and pain control -RUQ US - region of pancreas obscured by shadowing bowel gas -GI following and appreciate recommendations. Presumed secondary to hypertriglyceridemia. -data input clerk consulted (3) JOYA (acute kidney injury): Code(s): N17.9 - Acute kidney failure, unspecified Status: Acute Assessment and Plan: -Stable. BUN 31, creatinine 1.3, GFR >60. -Likely secondary to dehydration, IV contrast, acute illness? -Continue IV fluids. -Monitor I&O. -Nephrology consulted. (4) Hypoxia: Code(s): R09.02 - Hypoxemia Status: Acute Assessment and Plan: -on 4L NC, does not wear home oxygen, -12/30/21 CXR - bibasilar opacities atelectasis versus pneumonia; WBC 9.4 without shift and afebrile. Add incentive spirometry. Hold antibiotics for now. Repeat CXR in 1-2 days if no improvement. -VQ to r/o PE inconclusive; venous dopplers w/o DVT patient is already being anticoagulated for splenic vein thrombus (5) Atypical chest pain: Code(s): R07.89 - Other chest pain Status: Acute Assessment and Plan: -Appears resolved. -serial troponins negative, Cardiology consulted and no intervention recommended at this time. -likely noncardiac related. (6) Diabetes mellitus with hyperglycemia: Code(s): E11.65 - Type 2 diabetes mellitus with hyperglycemia Status: Acute Assessment and Plan: -Holding Farxiga & Tradjenta -glucose up to 486 immediately following lunch, fasting 238. -A1c 9.8 -Increase lantus 18 units SQ at HS. -Continue lispro high dose sliding scale. -Diet clear liquid diet (no concentrated sweets). -consult to telepathist (7) Hypertriglyceridemia: Code(s): E78.1 - Pure hyperglyceridemia Status: Acute Assessment and Plan: -triglycerides 794 -likely cause of his acute pancreatitis -data input clerk consult appreciated (8) Hyponatremia: Code(s): E87.1 - Hypo-osmolality and hyponatremia Status: Acute Assessment and Plan: -131 today, corrected to 137 for hyperglycemia. -Continue IVF as above. -nephrology following and appreciate recommendations. (9) Hypomagnesemia: Code(s): E83.42 - Hypomagnesemia Status: Acute Assessment and Plan: -stable. Magnesium 1.9 today. (10) Hypokalemia: Code(s): E87.6 - Hypokalemia Status: Acute Assessment and Plan: K 2.8 today, Mag 1.9. Given 40 mEQ IV x1. Repeat K 3.8. -Repeat BMP tomorrow. Time Spent With Patient Time: 15-25 minutes with more than 50% time for education. Subjective Date/time seen: 12/30/21 14:45 Interval history: Patient found sitting up in the bed. He c/o left upper arm pain & swelling. His nurse is at bedside and reports his IV infiltrated. No paresthesia. He denies chest pain, SOB, palpitations, nausea, vomiting. He has a nonproductive cough. He has not been ambulating in the halls much because he is concerned about his gown. Review of Systems Review of Systems: All systems reviewed & are unremarkable except as noted in H
[2021-12-30 14:58] LABS: Sodium Urine Random 34 meq/L
[2021-12-30 14:59] LABS: Creatinine Urine 22.1 mg/dL; Total Protein Urine Random 19 mg/dL; Ur Ttl Prot Creatinine Ratio 0.86 mg/mg (0-0.20)
[2021-12-30 16:49] LABS: Glucose Point of Care 300 mg/dl (65-105)
[2021-12-30 16:56] LABS: Partial Thromboplastin Time 41.1 SECONDS (22.3-36.8)
[2021-12-30 18:39] LABS: Sodium 132 mmol/L (137-145)
[2021-12-30] MEDS: INSULIN GLARGINE (*BKC) 100 UNITS/ML 18 UNITS SUB-Q (20:24)
[2021-12-30 20:55] LABS: Glucose Point of Care 231 mg/dl (65-105)
[2021-12-30] MEDS: HEPARIN SOD/D5W 100 UNITS/ML 25,000 UNITS/250 ML BAG 26 UNITS IV CONT (22:55)
[2021-12-30] MEDS: SODIUM CHLORIDE 0.9% IV 1,000 ML 50 ML IV CONT (23:00)
[2021-12-31] VITALS (15 sets, daily range): BP systolic 118–136; BP diastolic 55–81; PULSE 70–86; RESP 18–21; TEMP 36.2–37.1; O2SAT 94–100
[2021-12-31 00:20] LABS: Partial Thromboplastin Time 58.9 SECONDS (22.3-36.8)
[2021-12-31] MEDS: HEPARIN SODIUM 5,000 UNITS/ML VIAL 3500 UNITS IV PUSH ×2 (00:30→15:09)
[2021-12-31] MEDS: MORPHINE SULFATE (*CRX) 4 MG/ML INJ IV PUSH ×3 (05:32→20:40)
[2021-12-31 06:17] LABS: Glucose Point of Care 245 mg/dl (65-105)
[2021-12-31 07:49] LABS: Glucose Point of Care 255 mg/dl (65-105)
[2021-12-31 08:02] LABS: Hematocrit 39.8 % (42.0-52.0); Mean Corpuscular HGB Conc 32.7 g/dl (32-36); Mean Corpuscular Volume 91.7 fl (80-100); Mean Platelet Volume 11.5 fl (7.4-10.4); Platelet Count Result 271 k/mm3 (150-375); Red Blood Count 4.34 M/mm3 (4.6-6.20); Red Cell Distribution Width 12.8 % (11.5-14.5); White Blood Count 12.1 K/mm3 (4.5-10.0)
[2021-12-31] MEDS: AMIODARONE HCL 200 MG TABLET PO (08:11)
[2021-12-31] MEDS: ASPIRIN 81 MG CHEWABLE TABLET PO (08:11)
[2021-12-31] MEDS: SENNA/DOCUSATE SODIUM TABLET 1 TAB PO (08:11)
[2021-12-31] MEDS: CHOLECALCIFEROL 1,000 UNITS TABLET 1000 UNITS PO (08:11)
[2021-12-31] MEDS: ATORVASTATIN 40 MG TABLET 80 MG PO (08:11)
[2021-12-31] MEDS: methocarbamoL 750 MG TABLET PO (08:11)
[2021-12-31] MEDS: FAMOTIDINE 20 MG TABLET PO ×2 (08:12→16:28)
[2021-12-31] MEDS: INSULIN ASPART (*BKC) 100 UNITS/ML 6 UNITS SUB-Q ×2 (08:12→11:38)
[2021-12-31] MEDS: GABAPENTIN 100 MG CAPSULE PO ×3 (08:12→16:28)
[2021-12-31] MEDS: METOPROLOL TARTRATE 12.5 MG TABLET PO ×2 (08:12→22:22)
[2021-12-31] MEDS: SPIRONOLACTONE 25 MG TABLET PO (08:12)
[2021-12-31] MEDS: INSULIN ASPART (*BKC) 100 UNITS/ML SUB-Q ×3 (08:13→16:30)
--- NOTE | 2021-12-31 08:23 | PC.NURSE ---
called pharmacy for more heparin, for pt heparin drip.
[2021-12-31 08:25] LABS: Albumin Level 3.1 g/dL (3.5-5.1); Anion Gap 8 mmol/L (8-16); Blood Urea Nitrogen 24 mg/dL (9-20); Calcium 8.1 mg/dL (8.4-10.2); Carbon Dioxide 29 mmol/L (22-30); Chloride 97 mmol/L (98-107); Estimated CRCL calculation 82 ml/min; Estimated Glomerular Filt Rate > 60; Glucose 253 mg/dL (65-110); Magnesium 1.8 mg/dL (1.6-2.3); Phosphorus 2.5 mg/dL (2.5-4.5); Potassium 2.9 mmol/L (3.4-5.0); Sodium 134 mmol/L (137-145)
[2021-12-31] MEDS: HEPARIN SOD/D5W 100 UNITS/ML 25,000 UNITS/250 ML BAG 28 UNITS IV CONT (08:50)
--- NOTE | 2021-12-31 09:24 | PC.NURSE ---
herparin drip restarted 850 PTT 74 therapeutic no rate change needed, next PTT at 1450, current rate 28ml/hr.
--- NOTE | 2021-12-31 11:03 | PM.PNCARD ---
Progress Note: A&P Assessment and Plan (1) Atypical chest pain: Code(s): R07.89 - Other chest pain Status: Acute Assessment and Plan: Not coronary in etiology (2) Acute pancreatitis: Code(s): K85.90 - Acute pancreatitis without necrosis or infection, unspecified Status: Acute Assessment and Plan: Probably from hypertriglyceridemia (3) Acute thrombosis of splenic vein: Code(s): I82.890 - Acute embolism and thrombosis of other specified veins Status: Acute (4) Coronary artery disease: Code(s): I25.10 - Atherosclerotic heart disease of [place] coronary artery without angina pectoris Status: Acute Assessment and Plan: Continue statin, aspirin, Repatha, metoprolol, spironolactone, furosemide (5) Postoperative atrial fibrillation: Code(s): I97.89 - Other postprocedural complications and disorders of the circulatory system, not elsewhere classified; I48.91 - Unspecified atrial fibrillation Status: Acute Assessment and Plan: Continue Eliquis Subjective Date/time seen: 12/31/21 11:03 Interval history: Follow-up visit in this 61-year-old man with: Extensive 3 vessel coronary artery disease with previous PCI and surgical revascularization 1 year ago. Admitted with abdominal pain pancreatitis Date of service 12/31/2021: Feels okay age. Still has 5/10 abdominal pain. Wants to walk. No chest pain or shortness of breath Review of Systems Constitutional: Constitutional: Denies chills Eyes: Eyes: Denies blurry vision ENT: Reports Normal hearing present Cardiovascular: Cardiovascular: Denies chest pain Respiratory: Respiratory: Denies chest congestion Gastrointestinal: Gastrointestinal: Reports abdominal pain Genitourinary: Genitourinary: Denies hematuria Musculoskeletal: Musculoskeletal: Denies back pain Integumentary/Breasts: Skin/Breast: Denies dry skin Neurologic: Denies Abnormal speech present Psychiatric: Psychiatric: Denies confusion Endocrine: Endocrine: Denies excessive sweating Hematologic/Lymphatic: Hematologic/Lymphatic: Denies easy bruising Allergic/Immunologic: Allergic/Immunologic: Denies GI upset with certain foods Exam Narrative: Awake alert oriented Const: General: comfortable HENMT: Ears: TM abnormal Eyes: Sclera: sclerae normal Neck: Neck: supple and no JVD Carotids: bruit (No bruit) Resp: Auscultation: diminished lung sounds Cardio: Rate: regular rate Rhythm: regular rhythm GI: GI Palp: Yes Soft to palpation and No Guarding due to palpation present (GI) Urinary Catheter: Urinary Catheter: patent and draining Skin: General skin exam: normal color Neuro: Speech: normal speech Sensory Exam: normal sensation Extrem: General: no edema Psych: Mental Status: mental status grossly normal Objective Data Vital Signs Vital Signs: Vital Signs - 24 hr 12/30/21 12:00 12/30/21 14:00 12/30/21 16:00 Temperature 36.2 C L Pulse Rate 82 79 80 Respiratory Rate 20 Blood Pressure 112/58 L Pulse Oximetry 95 Oxygen Delivery Oxygen Flow Rate 12/30/21 18:00 12/30/21 20:22 12/30/21 20:00 Temperature 36.4 C Pulse Rate 83 74 74 Respiratory Rate 18 18 Blood Pressure 120/56 L Pulse Oximetry 95 Oxygen Delivery Nasal Cannula Oxygen Flow Rate 4 12/30/21 20:00 12/30/21 20:00 12/31/21 00:00 Temperature 36.7 C Pulse Rate 74 73 70 Respiratory Rate 20 Blood Pressure 104/62 Pulse Oximetry 99 Oxygen Delivery Oxygen Flow Rate 12/31/21 04:00 12/31/21 00:00 12/30/21 21:50 Temperature 36.6 C Pulse Rate 75 71 Respiratory Rate 21 H Blood Pressure 118/69 Pulse Oximetry 100 94 Oxygen Delivery Nasal Cannula Oxygen Flow Rate 3 12/31/21 04:00 12/31/21 08:11 12/31/21 08:12 Temperature 37.1 C Pulse Rate 86 86 86 Respiratory Rate 21 H Blood Pressure 120/57 L Pulse Oximetry 100 Oxygen Delivery Oxygen Flow Rate
[2021-12-31] MEDS: POTASSIUM CHLORIDE INJ 40 MEQ in SODIUM CHLORIDE 0.9% IV 500 ML 130 MEQ IVPB (11:38)
[2021-12-31 11:40] LABS: Prostate Specific Antigen 1.3 ng/mL (< OR = 4.0)
[2021-12-31 11:47] LABS: Glucose Point of Care 292 mg/dl (65-105)
--- NOTE | 2021-12-31 11:58 | PC.NURSE ---
pt report nose bleed, ocean nasal spray order per provider Paty Conrad
--- NOTE | 2021-12-31 12:28 | WPDGIPROGNO ---
Progress Note: A&P Assessment and Plan (1) Acute pancreatitis: Code(s): K85.90 - Acute pancreatitis without necrosis or infection, unspecified Status: Acute Assessment and Plan: at this point etiology of his pancreatitis is unknown. I will check his lipids. No biliary tract disease is seen on CT. Also liver enzymes are normal as is the bilirubin. He does not drink alcohol. I explained him that getting over pancreatitis is a slow process and will be painful for few days. We will try to keep his pain managed. I explained him that because the pancreas is involved indigestion, that we will not be able to feed him until he feels better. his lipid panel has come back just now and triglycerides are over 700. Therefore his pancreatitis is likely due to hyperlipidemia, but we will also recheck his gallbladder with an ultrasound in the morning 12/29 ultrasound was negative. Triglycerides were markedly elevated and I suspect this is the cause of his pancreatitis. I told that it is extremely important that he get his diet under control in terms of blood sugar and triglycerides and I told that once a person has had pancreatitis, recurrences are much more likely. (2) Acute thrombosis of splenic vein: Code(s): I82.890 - Acute embolism and thrombosis of other specified veins Status: Acute Assessment and Plan: oddly, he was on Eliquis on admission and remains on that now. Perhaps the thrombosis will resolve with anticoagulation and resolution of his pancreatitis. He has been started on heparin and per Dr. Kearney's recommendations will be switched to Lovenox at discharge . has consult him on this and will manage anticoagulation. (3) Diabetes mellitus with hyperglycemia: Code(s): E11.65 - Type 2 diabetes mellitus with hyperglycemia Status: Acute Assessment and Plan: poorly controlled. I again discussed diet with him and the importance of him adopting a healthy diet and healthy lifestyle. I told that I would like to try him on a full liquid diet. (4) Hyperlipidemia: Code(s): E78.5 - Hyperlipidemia, unspecified Status: Acute Assessment and Plan: As suspected, triglycerides are over 700 and is probably a factor in his pancreatitis. I think that this patient needs dietary counseling. It is clear that he does not comply with his diabetic diet. Subjective Date/time seen: 12/31/21 12:28 he continues to have abdominal pain.? He has required morphine every 4 or 5 hours.? He was seen by Hematology yesterday and is being investigated for possible hypercoagulable state.? He is on heparin now and will be discharged on Lovenox 1 milligram/kilogram b.i.d..? He was questioning when he can eat again.? I told that we would not want to feed him and challenge ? His pancreas until his pain has subsided.? His lipase is coming down. I discussed his diet with him.? He admits that he has been noncompliant with his diabetic diet and low-cholesterol diet.? Also has a very sedentary lifestyle.? He states he does not drive he does ,walk around the house a bit, he states that he does see his primary care provider, Dr. Wills every 3-4 months, but does not remember how often they check his labs Today his pain is a little better, usually of 5. It was quite intense however when he 1st woke up today. Cardiology has seen him this morning and says it is okay for him to walk around. He feels that his bladder catheter is not working properly but I showed him how it is dripping into his M[place]han catheter bag. Exam Const: General: alert Nutritional Appearance: obese Orientation/consciousness: patient oriented x3 Resp: Auscultation: clear to auscultation bilaterally Cardio: Rhythm: regular rhythm GI: Inspection: distended and obesity Auscultation: normal bowel sounds and Hypoactive bowel sounds present Neuro: General: patient oriented x3 Objective Data Vital Signs Vital Signs: Vital Sign
--- NOTE | 2021-12-31 12:53 | P.PNNP_ITS ---
Progress Note: A&P Assessment and Plan (1) JOYA (acute kidney injury): Code(s): N17.9 - Acute kidney failure, unspecified Status: Acute Assessment and Plan: * resolved * suspect secondary to pre-renal factors, contrast exposure, and pancreatitis - imaging to date does not report any acute pathology/obstruction? - urine electrolytes suggestive of prerenal azotemia - CPK okay * creatinine back to baseline * replete K+ as needed (2) Hyponatremia: Code(s): E87.1 - Hypo-osmolality and hyponatremia Status: Acute Assessment and Plan: * resolving * presumably secondary to JOYA/ARF * evaluatition to date: - TSH is low but free T4 is normal - cosyntropin stim test okay - urine electrolytes look pre-renal - SPEP/UPEP and serum/urine osmolality pending * getting IVFs * follow trend of repeat sodium levels (3) Acute thrombosis of splenic vein: Code(s): I82.890 - Acute embolism and thrombosis of other specified veins Status: Acute Assessment and Plan: * as noted by imaging * on heparin gtt * Hem/Onc recommendation noted (4) Hypokalemia: Code(s): E87.6 - Hypokalemia Status: Acute Assessment and Plan: * due to previous low magnesium and total body store depletion * replace as needed/scheduled * follow trend of K+ (5) Acute pancreatitis: Code(s): K85.90 - Acute pancreatitis without necrosis or infection, unspecified Status: Acute Assessment and Plan: * elevated lipase noted along with CT scan findings * Gastroenterology following * presumed etiology is hypertriglyceridemia * supportive therapy (6) Hypoxia: Code(s): R09.02 - Hypoxemia Status: Acute Assessment and Plan: * concern is for PE * V/Q scan inconclusive * may need to consider CTA of chest - unclear if this would change management facilitator - already on anticoagulation (7) Atypical chest pain: Code(s): R07.89 - Other chest pain Status: Acute Assessment and Plan: * Cardiology recommendations noted * no felt to be related to ACS (8) Diabetes: Code(s): E11.9 - Type 2 diabetes mellitus without complications Status: Chronic Assessment and Plan: * follow accuchecks * on SSI and Lantus Not much else to add at this time; will continue to follow from a distance. Subjective Date/time seen: 12/31/21 12:53 Still with intermittent abdominal pain at the time of my visit -- pain medications do seems to help control this; no other apparent issues voiced at this time; renal function as well as sodium improving with current interventions; issues with low K+ noted. Exam Narrative: General: WD/WN male in NAD (aside from abdominal discomfort) Heart: normal S1 and S2; no rub Lungs: clear to auscultation Abdomen: soft, nontender, nondistended, positive bowel sounds Extremities: no cyanosis or clubbing; no edema Skin: warm and dry Objective Data Vital Signs Vital Signs: Vital Signs Temp Pulse Resp BP Pulse Ox O2 Del Method O2 Flow Rate 12/31/21 12:00 84 12/31/21 08:00 86 12/31/21 10:53 96 12/31/21 10:22 96 Nasal Cannula 2 12/31/21 08:00 86 21 H 100 Nasal Cannula 3 12/31/21 08:12 86 12/31/21 08:11 86
--- NOTE | 2021-12-31 12:53 | PM.PNNEP ---
Progress Note: A&P Assessment and Plan (1) JOYA (acute kidney injury): Code(s): N17.9 - Acute kidney failure, unspecified Status: Acute Assessment and Plan: resolved suspect secondary to pre-renal factors, contrast exposure, and pancreatitis - imaging to date does not report any acute pathology/obstruction? - urine electrolytes suggestive of prerenal azotemia - CPK okay creatinine back to baseline replete K+ as needed (2) Hyponatremia: Code(s): E87.1 - Hypo-osmolality and hyponatremia Status: Acute Assessment and Plan: resolving presumably secondary to JOYA/ARF evaluatition to date: - TSH is low but free T4 is normal - cosyntropin stim test okay - urine electrolytes look pre-renal - SPEP/UPEP and serum/urine osmolality pending getting IVFs follow trend of repeat sodium levels (3) Acute thrombosis of splenic vein: Code(s): I82.890 - Acute embolism and thrombosis of other specified veins Status: Acute Assessment and Plan: as noted by imaging on heparin gtt Hem/Onc recommendation noted (4) Hypokalemia: Code(s): E87.6 - Hypokalemia Status: Acute Assessment and Plan: due to previous low magnesium and total body store depletion replace as needed/scheduled follow trend of K+ (5) Acute pancreatitis: Code(s): K85.90 - Acute pancreatitis without necrosis or infection, unspecified Status: Acute Assessment and Plan: elevated lipase noted along with CT scan findings Gastroenterology following presumed etiology is hypertriglyceridemia supportive therapy (6) Hypoxia: Code(s): R09.02 - Hypoxemia Status: Acute Assessment and Plan: concern is for PE V/Q scan inconclusive may need to consider CTA of chest - unclear if this would change control analyst - already on anticoagulation (7) Atypical chest pain: Code(s): R07.89 - Other chest pain Status: Acute Assessment and Plan: Cardiology recommendations noted no felt to be related to ACS (8) Diabetes: Code(s): E11.9 - Type 2 diabetes mellitus without complications Status: Chronic Assessment and Plan: follow accuchecks on SSI and Lantus Not much else to add at this time; will continue to follow from a distance. Subjective Date/time seen: 12/31/21 12:53 Still with intermittent abdominal pain at the time of my visit -- pain medications do seems to help control this; no other apparent issues voiced at this time; renal function as well as sodium improving with current interventions; issues with low K+ noted. Exam Narrative: General: WD/WN male in NAD (aside from abdominal discomfort) Heart: normal S1 and S2; no rub Lungs: clear to auscultation Abdomen: soft, nontender, nondistended, positive bowel sounds Extremities: no cyanosis or clubbing; no edema Skin: warm and dry Objective Data Vital Signs Vital Signs: Vital Signs Temp Pulse Resp BP Pulse Ox O2 Del Method O2 Flow Rate 12/31/21 12:00 84 12/31/21 08:00 86 12/31/21 10:53 96 12/31/21 10:22 96 Nasal Cannula 2 12/31/21 08:00 86 21 H 100 Nasal Cannula 3 12/31/21 08:12 86 12/31/21 08:11 86 12/31/21 04:00 37.1 C 86 21 H 120/57 L 100 12/30/21 21:50 94 Nasal Cannula 3 12/31/21 00:00 36.6 C 71 21 H 118/69 100 12/31/21 04:00 75 12/31/21 00:00 70 12/30/21 20:00 73 12/30/21 20:00 36.7 C 74 20 104/62 99 12/30/21 20:00 74 18 95 Nasal Cannula 4 12/30/21 20:22 74 12/30/21 18:00 36.4 C 83 18 120/56 L 12/30/21 16:00 80 Intake/Output Intake/Output: Intake & Output 12/28/21 12/29/21 12/30/21 12/31/21 23:59 23:59 23:59 23:59 Intake Total 3000 3450 5420 1940 Output Total 875 1200 3240 3950 Balance 2125 2250 2180 -2009 Meds/Results Medications: Active Medicati
--- NOTE | 2021-12-31 13:07 | PC.NURSE ---
pt able to walk around unit without difficulty independently, remained at 94% after walking several laps around unit, remains stable RA.
--- NOTE | 2021-12-31 13:40 | PM.IMPN ---
Progress Note: A&P Assessment and Plan (1) Acute thrombosis of splenic vein: Code(s): I82.890 - Acute embolism and thrombosis of other specified veins Status: Acute Assessment and Plan: -non occlusive, noted on admission CT. He was reportedly compliant with his Eliquis prior to admission. -GI consulted and following -Hematology, Dr. Kearney consulted and appreciate recommendations. -12/30/21 Abdominal pain is improving. On heparin drip. Per Hem/Onc continue heparin drip, transition to Lovenox 1 mg/kg BID x 14 days upon discharge and then follow up to start Xarelto. -12/31/21 unchanged from yesterday. No s/s bleeding. Transition to lovenox at discharge per Hematology recommendations. (2) Acute pancreatitis: Code(s): K85.90 - Acute pancreatitis without necrosis or infection, unspecified Status: Acute Assessment and Plan: -Noted on admission CT; lipase 6946 on arrival & trending down. LFTs and bili normal. -GI following and appreciate recommendations. Presumed secondary to hypertriglyceridemia. -Continued on clear liquid diet. Continue IVF, antiemetics, and pain control -RUQ US - region of pancreas obscured by shadowing bowel gas -bpm analyst consulted (3) JOYA (acute kidney injury): Code(s): N17.9 - Acute kidney failure, unspecified Status: Acute Assessment and Plan: -Stable. Likely secondary to dehydration, IV contrast, acute illness? -Continue IV fluids. -Monitor I&O. -Nephrology following. (4) Hypoxia: Code(s): R09.02 - Hypoxemia Status: Acute Assessment and Plan: -Weaned to room air. Continue incentive spirometery. WBC 12 today, but afebrile and asymptomatic. 12/30/21 CXR - bibasilar opacities atelectasis versus pneumonia. Hold antibiotics for now. -VQ to r/o PE inconclusive; venous dopplers w/o DVT patient is already being anticoagulated for splenic vein thrombus (5) Atypical chest pain: Code(s): R07.89 - Other chest pain Status: Acute Assessment and Plan: -Appears resolved. -serial troponins negative, Cardiology consulted and no intervention recommended at this time. -likely noncardiac related. -Continue home medications. (6) Diabetes mellitus with hyperglycemia: Code(s): E11.65 - Type 2 diabetes mellitus with hyperglycemia Status: Acute Assessment and Plan: -Holding Farxiga & Tradjenta -glucose up to >200 mg/dL but improved from 12/30/21. Continue lantus 18 units SQ, low concentrated sugar clear liquid diet, increase lispro 10 units TID with meals plus high dose sliding scale. Goal glucose <180 mg/dL. -A1c 9.8 -consult to certified diabetes educator (7) Hypertriglyceridemia: Code(s): E78.1 - Pure hyperglyceridemia Status: Acute Assessment and Plan: -triglycerides 794 -likely cause of his acute pancreatitis -bpm analyst consult appreciated (8) Hyponatremia: Code(s): E87.1 - Hypo-osmolality and hyponatremia Status: Acute Assessment and Plan: -Stable. Sodium 138 corrected for hyperglycemia. -Continue IVF as above. -nephrology following and appreciate recommendations. (9) Hypomagnesemia: Code(s): E83.42 - Hypomagnesemia Status: Acute Assessment and Plan: -Resolved. (10) Hypokalemia: Code(s): E87.6 - Hypokalemia Status: Acute Assessment and Plan: K 2.9 today, Mag 1.8. -Start potassium chloride 40 mEQ PO daily & 40 mEQ PO IV x1. -Monitor telemetry. -Repeat potassium level at 1500 & BMP daily. Time Spent With Patient Time with patient: 15 - 25 minutes Subjective Date/time seen: 12/31/21 13:40 Patient is a 61 yo male with h/o diabetes, CAD s/p CABG, and HLD. He was admitted from the ED for c/o chest pain. He was found to have acute pancreatitis, with lipase 6946 on admission, as well as splenic vein thrombus. Patient found sitting up in the bed. He reports persist
--- NOTE | 2021-12-31 14:19 | PC.NURSE ---
called Dm educator consulted messaged left for pt to see dm education
[2021-12-31] MEDS: ACETAMINOPHEN 500 MG TABLET PO (14:48)
[2021-12-31 14:57] LABS: Potassium 3.4 mmol/L (3.4-5.0)
[2021-12-31 15:02] LABS: Partial Thromboplastin Time 56.1 SECONDS (22.3-36.8)
[2021-12-31] MEDS: HEPARIN SOD/D5W 100 UNITS/ML 25,000 UNITS/250 ML BAG 30 UNITS IV CONT (15:08)
--- NOTE | 2021-12-31 15:25 | PC.NURSE ---
2114 next PTT, pt was not therapeutic at 1450 PTT, increase by 2ml/hr currently 30ml/hr and bolus given as ordered, see mar .
[2021-12-31] MEDS: INSULIN ASPART (*BKC) 100 UNITS/ML 10 UNITS SUB-Q (16:28)
[2021-12-31 16:32] LABS: Glucose Point of Care 305 mg/dl (65-105)
[2021-12-31 21:23] LABS: Partial Thromboplastin Time 84.5 SECONDS (22.3-36.8)
[2021-12-31] MEDS: INSULIN GLARGINE (*BKC) 100 UNITS/ML 18 UNITS SUB-Q (22:19)
[2021-12-31 22:30] LABS: Glucose Point of Care 227 mg/dl (65-105)
[2022-01-01] VITALS (11 sets, daily range): BP systolic 115–140; BP diastolic 56–72; PULSE 59–75; RESP 16–20; TEMP 36.2–36.5; O2SAT 92–98
[2022-01-01] MEDS: HEPARIN SOD/D5W 100 UNITS/ML 25,000 UNITS/250 ML BAG 30 UNITS IV CONT ×3 (01:40→18:17)
[2022-01-01] MEDS: ONDANSETRON INJ 4 MG/2 ML VIAL IV PUSH ×4 (01:46→23:39)
[2022-01-01 03:34] LABS: Hematocrit 35.8 % (42.0-52.0); Hemoglobin 12.2 g/dL (14.0-18.0); Mean Corpuscular HGB Conc 34.1 g/dl (32-36); Mean Corpuscular Hemoglobin 30.4 pg (26-34); Mean Corpuscular Volume 89.3 fl (80-100); Mean Platelet Volume 10.6 fl (7.4-10.4); Platelet Count Result 285 k/mm3 (150-375); Red Blood Count 4.01 M/mm3 (4.6-6.20); Red Cell Distribution Width 12.7 % (11.5-14.5); White Blood Count 10.4 K/mm3 (4.5-10.0)
[2022-01-01 03:48] LABS: Partial Thromboplastin Time 71.5 SECONDS (22.3-36.8)
[2022-01-01 04:16] LABS: Anion Gap 4 mmol/L (8-16); Blood Urea Nitrogen 17 mg/dL (9-20); Calcium 7.9 mg/dL (8.4-10.2); Carbon Dioxide 31 mmol/L (22-30); Chloride 98 mmol/L (98-107); Estimated CRCL calculation 91 ml/min; Estimated Glomerular Filt Rate > 60; Glucose 196 mg/dL (65-110); Lipase 729 U/L (23-300); Magnesium 1.8 mg/dL (1.6-2.3); Phosphorus 3.4 mg/dL (2.5-4.5); Sodium 133 mmol/L (137-145)
[2022-01-01 05:55] LABS: Glucose Point of Care 190 mg/dl (65-105)
[2022-01-01] MEDS: MORPHINE SULFATE (*CRX) 4 MG/ML INJ IV PUSH ×4 (06:24→18:23)
[2022-01-01 07:52] LABS: Glucose Point of Care 216 mg/dl (65-105)
--- NOTE | 2022-01-01 08:22 | PM.IMPN ---
Progress Note: A&P Assessment and Plan (1) Acute thrombosis of splenic vein: Code(s): I82.890 - Acute embolism and thrombosis of other specified veins Status: Acute Assessment and Plan: -non occlusive, noted on admission CT. He was reportedly compliant with his Eliquis prior to admission. -GI consulted and following -Hematology, Dr. Kearney consulted and appreciate recommendations. -12/30/21 Abdominal pain is improving. On heparin drip. Per Hem/Onc continue heparin drip, transition to Lovenox 1 mg/kg BID x 14 days upon discharge and then follow up to start Xarelto. -12/31/21 unchanged from yesterday. No s/s bleeding. Transition to lovenox at discharge per Hematology recommendations. -01/01 unchanged. Continue heparin drip per hematology until discharge, then start SQ lovenox BID x 2 weeks. Patient will need lovenox admin instructions prior to dc. (2) Acute pancreatitis: Code(s): K85.90 - Acute pancreatitis without necrosis or infection, unspecified Status: Acute Assessment and Plan: -Noted on admission CT; lipase 6946 on arrival & trending down. LFTs and bili normal. -GI following and appreciate recommendations. Presumed secondary to hypertriglyceridemia. -Continued on clear liquid diet. Continue IVF, antiemetics, and pain control -RUQ US - region of pancreas obscured by shadowing bowel gas -graves registration specialist consulted -01/01 unchanged. Lipase >700, mildly increased from yesterday. He is taking full liquid diet. Advance diet per GI. Pain control. will add norco 5/325 mg Q4 hours PRN moderate pain. He will need triglyceride lowering medication when tolerating regular diet. (3) JOYA (acute kidney injury): Code(s): N17.9 - Acute kidney failure, unspecified Status: Acute Assessment and Plan: -Stable. -Continue IV fluids. -Monitor I&O. -Nephrology following. (4) Hypoxia: Code(s): R09.02 - Hypoxemia Status: Acute Assessment and Plan: -Weaned to room air. Continue incentive spirometery. Unlikely 2/2 pneumonia. Continue to hold antibiotics. -VQ to r/o PE inconclusive; venous dopplers w/o DVT patient is already being anticoagulated for splenic vein thrombus (5) Atypical chest pain: Code(s): R07.89 - Other chest pain Status: Acute Assessment and Plan: -Appears resolved. -serial troponins negative, Cardiology following and no intervention recommended at this time. (6) Diabetes mellitus with hyperglycemia: Code(s): E11.65 - Type 2 diabetes mellitus with hyperglycemia Status: Acute Assessment and Plan: -Holding Farxiga & Tradjenta -glucose still elevated. -Increase lantus 20 units SQ, low concentrated sugar liquid diet -Continue lispro 10 units TID with meals plus high dose sliding scale. Goal glucose <180 mg/dL. -A1c 9.8 -consult to cash office worker (7) Hypertriglyceridemia: Code(s): E78.1 - Pure hyperglyceridemia Status: Acute Assessment and Plan: -triglycerides 794 -likely cause of his acute pancreatitis -graves registration specialist consult appreciated -start medication per GI recommendations when tolerating diet. (8) Hyponatremia: Code(s): E87.1 - Hypo-osmolality and hyponatremia Status: Acute Assessment and Plan: -Stable. -Continue IVF as above. -nephrology following and appreciate recommendations. (9) Hypomagnesemia: Code(s): E83.42 - Hypomagnesemia Status: Acute Assessment and Plan: -Resolved. (10) Hypokalemia: Code(s): E87.6 - Hypokalemia Status: Acute Assessment and Plan: K 3.0 -Continue potassium chloride 40 mEQ PO daily -Monitor telemetry. Time Spent With Patient Time with patient: 15 - 25 minutes Subjective Date/time seen: 01/01/22 08:23 Interval history: Patient found sitting up in the bed. His LUQ pain is unchanged 4-12/16. He had 1 dose of morphine IV early this mo
[2022-01-01] MEDS: METOPROLOL TARTRATE 12.5 MG TABLET PO ×2 (08:45→21:14)
[2022-01-01] MEDS: AMIODARONE HCL 200 MG TABLET PO (08:46)
[2022-01-01] MEDS: SENNA/DOCUSATE SODIUM TABLET 1 TAB PO (08:46)
[2022-01-01] MEDS: SPIRONOLACTONE 25 MG TABLET PO (08:46)
[2022-01-01] MEDS: ATORVASTATIN 40 MG TABLET 80 MG PO (08:46)
[2022-01-01] MEDS: GABAPENTIN 100 MG CAPSULE PO ×3 (08:46→16:32)
[2022-01-01] MEDS: CHOLECALCIFEROL 1,000 UNITS TABLET 1000 UNITS PO (08:46)
[2022-01-01] MEDS: methocarbamoL 750 MG TABLET PO ×2 (08:46→21:09)
[2022-01-01] MEDS: POTASSIUM CHLORIDE 20 MEQ PACKET (FOR LIQUID) 40 MEQ PO ×2 (08:47→16:32)
[2022-01-01] MEDS: FAMOTIDINE 20 MG TABLET PO ×2 (08:47→16:32)
[2022-01-01] MEDS: ASPIRIN 81 MG CHEWABLE TABLET PO (08:47)
[2022-01-01] MEDS: TAMSULOSIN HCL 0.4 MG CAPSULE PO (08:47)
[2022-01-01] MEDS: INSULIN ASPART (*BKC) 100 UNITS/ML SUB-Q ×3 (08:50→16:33)
[2022-01-01] MEDS: INSULIN ASPART (*BKC) 100 UNITS/ML 10 UNITS SUB-Q ×3 (08:50→16:32)
[2022-01-01] MEDS: SODIUM CHLORIDE 0.9% IV 1,000 ML 50 ML IV CONT (09:22)
--- NOTE | 2022-01-01 09:24 | PM.PNCARD ---
Progress Note: A&P Assessment and Plan (1) Atypical chest pain: Code(s): R07.89 - Other chest pain Status: Acute Assessment and Plan: Not coronary in etiology (2) Acute pancreatitis: Code(s): K85.90 - Acute pancreatitis without necrosis or infection, unspecified Status: Acute Assessment and Plan: Probably from hypertriglyceridemia (3) Acute thrombosis of splenic vein: Code(s): I82.890 - Acute embolism and thrombosis of other specified veins Status: Acute (4) Coronary artery disease: Code(s): I25.10 - Atherosclerotic heart disease of [place] coronary artery without angina pectoris Status: Acute Assessment and Plan: Continue statin, aspirin, Repatha, metoprolol, spironolactone, furosemide (5) Postoperative atrial fibrillation: Code(s): I97.89 - Other postprocedural complications and disorders of the circulatory system, not elsewhere classified; I48.91 - Unspecified atrial fibrillation Status: Acute Assessment and Plan: Continue Eliquis (6) Hypokalemia: Code(s): E87.6 - Hypokalemia Status: Acute Assessment and Plan: KCL 40 mg p.o. x1. Plan Will also discontinue his IV fluids. He is becoming volume overloaded. He is taking in oral liquids at this point. Will give a dose of IV furosemide 40 mg IV x1. Replace his potassium. Follow volume status Subjective Date/time seen: 01/01/22 09:24 Interval history: Follow-up visit in this 61-year-old man with: Extensive 3 vessel coronary artery disease with previous PCI and surgical revascularization 1 year ago. Admitted with abdominal pain pancreatitis Date of service 12/31/2021: Feels okay age. Still has 5/10 abdominal pain. Wants to walk. No chest pain or shortness of breath Date of service 01/01/2022: Still has some abdominal pain. Up walking. No chest pain no shortness of breath. Swelling worse Review of Systems Constitutional: Constitutional: Denies chills and Denies excessive sweating Eyes: Eyes: Denies blurry vision ENT: Reports Normal hearing present Cardiovascular: Cardiovascular: Denies chest pain Respiratory: Respiratory: Denies chest congestion Gastrointestinal: Gastrointestinal: Reports abdominal pain Genitourinary: Genitourinary: Denies hematuria Musculoskeletal: Musculoskeletal: Denies back pain Integumentary/Breasts: Skin/Breast: Denies dry skin Neurologic: Reports Normal hearing present, Denies Abnormal speech present and Denies confusion Psychiatric: Psychiatric: Denies confusion Endocrine: Endocrine: Denies excessive sweating Hematologic/Lymphatic: Hematologic/Lymphatic: Denies easy bruising Allergic/Immunologic: Allergic/Immunologic: Denies GI upset with certain foods Exam Narrative: Awake alert oriented Const: General: comfortable; No confusion Orientation/consciousness: No confusion HENMT: Ears: TM abnormal Eyes: Sclera: sclerae normal Neck: Neck: supple and no JVD Carotids: bruit (No bruit) Resp: Auscultation: diminished lung sounds Cardio: Rate: regular rate Rhythm: regular rhythm Urinary Catheter: Urinary Catheter: patent and draining Skin: General skin exam: normal color Neuro: General: No confusion Cranial nerves: Yes Normal hearing present Speech: normal speech and No Abnormal speech present Sensory Exam: normal sensation Extrem: General: edema Psych: Mental Status: mental status grossly normal Objective Data Vital Signs Vital Signs: Vital Signs - 24 hr 12/31/21 10:22 12/31/21 10:53 12/31/21 12:00 Temperature Pulse Rate 84 Respiratory Rate Blood Pressure Pulse Oximetry 96 96 Oxygen Delivery Nasal Cannula Oxygen Flow Rate 2 12/31/21 11:30 12/31/21 14:00 12/31/21 16:00 Temperature 36.7 C Pulse Rate 80 73 Respiratory Rate 20 Blood Pressure 136/63 Pulse Oximetry 94 94 Oxygen Delivery Oxygen Flow Rate 12/31/21 18:00 12/31/21 2
[2022-01-01] MEDS: FUROSEMIDE INJ 40 MG/4 ML VIAL IV PUSH (09:34)
[2022-01-01 11:30] LABS: Glucose Point of Care 255 mg/dl (65-105)
--- NOTE | 2022-01-01 13:22 | WPDGIPROGNO ---
Progress Note: A&P Assessment and Plan (1) Acute pancreatitis: Code(s): K85.90 - Acute pancreatitis without necrosis or infection, unspecified Status: Acute Assessment and Plan: Patient with acute pancreatitis on presentation. Has had gradual decline in lipase. Suspect this is related to hypertriglyceridemia. Cannot exclude being idiopathic. Patient has a distant history of alcohol intake but denies any recent alcohol intake. (2) Hypertriglyceridemia: Code(s): E78.1 - Pure hyperglyceridemia Status: Acute Assessment and Plan: Elevated triglyceride level noted on presentation. Would recommend starting medication therapy for this when he can tolerate diet. Lopid would appear to be a good choice. (3) Acute thrombosis of splenic vein: Code(s): I82.890 - Acute embolism and thrombosis of other specified veins Status: Acute Assessment and Plan: Nonocclusive thrombosis of the splenic vein noted. Patient now on heparin drip. Suspect he would benefit from restarting anticoagulation when oral medications allowed. Previously was on Eliquis. I understand Xarelto anticoagulation is anticipated. (4) Obese: Code(s): E66.9 - Obesity, unspecified Status: Acute Assessment and Plan: Patient obese. Calorie restriction and increase activity are encouraged. This would also tend to help treat his elevated triglycerides. (5) Diabetes: Code(s): E11.9 - Type 2 diabetes mellitus without complications Status: Chronic Subjective Date/time seen: 01/01/22 13:22 Patient up sitting on a Paredes bed today. States abdominal pain has lessened. Started having bowel movements. He states he has tolerated liquid diet anxious to try more solid foods. States abdominal pain is somewhat lessened. Review of Systems Review of Systems: Review of systems noncontributory. Exam Narrative: Physical exam reveals patient to be alert. He is afebrile. Anicteric. Lungs are clear. Heart without murmur. Abdomen is obese. Bowel sounds are present soft nontender no organomegaly evident. No localized pain. Objective Data Vital Signs Vital Signs: Vital Signs - 24 hr 12/31/21 14:00 12/31/21 16:00 12/31/21 18:00 Temperature 98.1 F 97.2 F L Pulse Rate 80 73 80 Respiratory Rate 20 20 Blood Pressure 136/63 134/55 L Pulse Oximetry 94 96 Oxygen Delivery 12/31/21 22:12/31/21 22:37 01/01/22 00:00 Temperature 98.0 F 97.7 F Pulse Rate 76 75 75 Respiratory Rate 18 16 Blood Pressure 123/81 140/72 Pulse Oximetry 96 92 Oxygen Delivery 12/31/21 20:00 01/01/22 00:00 01/01/22 04:00 Temperature Pulse Rate 75 70 74 Respiratory Rate Blood Pressure Pulse Oximetry Oxygen Delivery 01/01/22 04:00 01/01/22 08:45 01/01/22 08:46 Temperature 97.6 F Pulse Rate 71 70 70 Respiratory Rate 16 Blood Pressure 123/72 Pulse Oximetry 95 Oxygen Delivery 01/01/22 08:00 01/01/22 09:52 01/01/22 08:00 Temperature 97.6 F Pulse Rate 71 71 69 Respiratory Rate 16 Blood Pressure 140/59 L Pulse Oximetry 96 94 Oxygen Delivery Room Air 01/01/22 12:00 01/01/22 12:00 Temperature 97.6 F Pulse Rate 74 73 Respiratory Rate 16 Blood Pressure 115/58 L Pulse Oximetry 97 Oxygen Delivery Intake/Output Intake/Output: Intake & Output 12/29/21 12/30/21 12/31/21 01/01/22 23:59 23:59 23:59 23:59 Intake Total 3450 5420 6880 2390 Output Total 1200 3240 7300 1500 Balance 2250 2180 -420 890 Meds/Results Medications: Active Medications Generic Name Dose Route Start Last Admin Trade Name Freq PRN Reason Stop Dose Admin Acetaminophen 500 mg 12/27/21 22:26 12/31/21 14:48 Acetaminophen 500 Mg Tablet PO 500 mg DAILY PRN Administration Pain Rated 1-3 Amiodarone HCl 200 mg 12/28/21 08:00 01/01/22 08:46 Amiodarone Hcl 200 Mg Tablet PO 200 mg DAILY@0800 LUCERO Administration Aspirin 81 mg
[2022-01-01 15:30] LABS: Osmolality, Urine 345 mOsm/kg (50-1200)
[2022-01-01 16:10] LABS: Albumin 2.2 g/dL (3.8-4.8); Alpha 1 Globulin 0.7 g/dL (0.2-0.3); Beta 1 Globulin 0.4 g/dL (0.4-0.6); Gamma Globulin 0.6 g/dL (0.8-1.7); Protein, Total 5.4 g/dL (6.1-8.1)
[2022-01-01 16:29] LABS: Glucose Point of Care 202 mg/dl (65-105)
[2022-01-01] MEDS: HYDROcodone/acetaminophen (*CRX) 5-325 MG TABLET 1 TAB PO (21:08)
[2022-01-01] MEDS: INSULIN GLARGINE (*BKC) 100 UNITS/ML 20 UNITS SUB-Q (21:11)
[2022-01-01 22:09] LABS: Glucose Point of Care 203 mg/dl (65-105)
[2022-01-02] VITALS (12 sets, daily range): BP systolic 115–145; BP diastolic 56–67; PULSE 65–84; RESP 16–22; TEMP 36.4–36.7; O2SAT 94–98
[2022-01-02] MEDS: MORPHINE SULFATE (*CRX) 4 MG/ML INJ IV PUSH ×5 (01:06→19:37)
[2022-01-02] MEDS: HEPARIN SOD/D5W 100 UNITS/ML 25,000 UNITS/250 ML BAG 30 UNITS IV CONT ×3 (02:49→21:16)
[2022-01-02] MEDS: HYDROcodone/acetaminophen (*CRX) 5-325 MG TABLET 1 TAB PO ×3 (04:03→21:15)
[2022-01-02 04:08] LABS: Hemoglobin 13.2 g/dL (14.0-18.0); Mean Corpuscular HGB Conc 33.8 g/dl (32-36); Mean Corpuscular Hemoglobin 30.1 pg (26-34); Mean Platelet Volume 10.3 fl (7.4-10.4); Platelet Count Result 330 k/mm3 (150-375); Red Blood Count 4.38 M/mm3 (4.6-6.20); Red Cell Distribution Width 12.9 % (11.5-14.5); White Blood Count 13.2 K/mm3 (4.5-10.0)
[2022-01-02 04:19] LABS: Partial Thromboplastin Time 80.9 SECONDS (22.3-36.8)
[2022-01-02 04:20] LABS: Anion Gap 5 mmol/L (8-16); Blood Urea Nitrogen 13 mg/dL (9-20); Carbon Dioxide 33 mmol/L (22-30); Chloride 96 mmol/L (98-107); Estimated CRCL calculation 82 ml/min; Estimated Glomerular Filt Rate > 60; Glucose 182 mg/dL (65-110); Magnesium 1.6 mg/dL (1.6-2.3); Phosphorus 3.3 mg/dL (2.5-4.5); Potassium 3.3 mmol/L (3.4-5.0); Sodium 134 mmol/L (137-145)
[2022-01-02 06:16] LABS: Glucose Point of Care 210 mg/dl (65-105)
[2022-01-02 07:48] LABS: Glucose Point of Care 200 mg/dl (65-105)
[2022-01-02] MEDS: POTASSIUM CHLORIDE 20 MEQ PACKET (FOR LIQUID) 40 MEQ PO (08:07)
[2022-01-02] MEDS: METOPROLOL TARTRATE 12.5 MG TABLET PO ×2 (08:08→20:26)
[2022-01-02] MEDS: ATORVASTATIN 40 MG TABLET 80 MG PO (08:08)
[2022-01-02] MEDS: FAMOTIDINE 20 MG TABLET PO ×2 (08:08→16:37)
[2022-01-02] MEDS: SPIRONOLACTONE 25 MG TABLET PO (08:08)
[2022-01-02] MEDS: TAMSULOSIN HCL 0.4 MG CAPSULE PO (08:08)
[2022-01-02] MEDS: GABAPENTIN 100 MG CAPSULE PO ×3 (08:08→16:37)
[2022-01-02] MEDS: CHOLECALCIFEROL 1,000 UNITS TABLET 1000 UNITS PO (08:09)
[2022-01-02] MEDS: AMIODARONE HCL 200 MG TABLET PO (08:09)
[2022-01-02] MEDS: ASPIRIN 81 MG CHEWABLE TABLET PO (08:09)
[2022-01-02] MEDS: INSULIN ASPART (*BKC) 100 UNITS/ML 10 UNITS SUB-Q ×3 (08:09→16:38)
[2022-01-02] MEDS: ONDANSETRON INJ 4 MG/2 ML VIAL IV PUSH ×3 (08:10→19:36)
--- NOTE | 2022-01-02 09:56 | PM.IMPN ---
Progress Note: A&P Assessment and Plan (1) Acute thrombosis of splenic vein: Code(s): I82.890 - Acute embolism and thrombosis of other specified veins Status: Acute Assessment and Plan: -non occlusive, noted on admission CT. He was reportedly compliant with his Eliquis prior to admission. -GI consulted and following -Hematology, Dr. Kearney consulted and appreciate recommendations. -12/30/21 Abdominal pain is improving. On heparin drip. Per Hem/Onc continue heparin drip, transition to Lovenox 1 mg/kg BID x 14 days upon discharge and then follow up to start Xarelto. -12/31/21 unchanged from yesterday. No s/s bleeding. Transition to lovenox at discharge per Hematology recommendations. -01/01 unchanged. Continue heparin drip per hematology until discharge, then start SQ lovenox BID x 2 weeks. Patient will need lovenox admin instructions prior to dc. -01/02 Continues to have LUQ abdominal pain. Patient is not tolerating his full liquid diet with some pain, and is hesitant to advance his diet at this point. On heparin drip. Lovenox on D/C x 2 weeks until f/u with Dr. Kearney in office. (2) Acute pancreatitis: Code(s): K85.90 - Acute pancreatitis without necrosis or infection, unspecified Status: Acute Assessment and Plan: -Noted on admission CT; lipase 6946 on arrival & trending down. LFTs and bili normal. -GI following and appreciate recommendations. Presumed secondary to hypertriglyceridemia. -Continued on Full liquid diet. Continue antiemetics, and pain control -RUQ US - region of pancreas obscured by shadowing bowel gas -per diem interpreter consulted -01/01 unchanged. Lipase >700, mildly increased from yesterday. He is taking full liquid diet. Advance diet per GI. Pain control. will add norco 5/325 mg Q4 hours PRN moderate pain. He will need triglyceride lowering medication when tolerating regular diet. -01/02 WBC 13, lipase 894 (729) along with perisistent pain with eating. He is on full liquids currently. He does not wish to advance diet, in GI does agree with this plan to continue full liquid diet until pain is better controlled. Has taken both morphine and norco today for pain control. Repeat UA due to rise in WBC. (3) JOYA (acute kidney injury): Code(s): N17.9 - Acute kidney failure, unspecified Status: Acute Assessment and Plan: -D/C IV fluids due to mild volume overload. -Monitor I&O. -Nephrology following. 01/02- Resolved. Meehan has been removed today, void trial. Single dose IV lasix given by cardiology yesterday. (4) Hypoxia: Code(s): R09.02 - Hypoxemia Status: Acute Assessment and Plan: -Weaned to room air. Continue incentive spirometery. Unlikely 2/2 pneumonia. Continue to hold antibiotics. -VQ to r/o PE inconclusive; venous dopplers w/o DVT patient is already being anticoagulated for splenic vein thrombus -01/02- patient is mildly tachypneic, but saturating on Room air. (5) Atypical chest pain: Code(s): R07.89 - Other chest pain Status: Acute Assessment and Plan: -Appears resolved. -Serial troponins negative, Cardiology following and no intervention recommended at this time. (6) Diabetes mellitus with hyperglycemia: Code(s): E11.65 - Type 2 diabetes mellitus with hyperglycemia Status: Acute Assessment and Plan: -Holding Farxiga & Tradjenta -glucose still elevated. -Increase lantus 20 units SQ, low concentrated sugar liquid diet -Continue lispro 10 units TID with meals plus high dose sliding scale. Goal glucose <180 mg/dL. -A1c 9.8 -contract technical writer met w/ patient. - 01/02- Glucose 182 today. (7) Hypertriglyceridemia: Code(s): E78.1 - Pure hyperglyceridemia Status: Acute Assessment and Plan: -Triglycerides 794 -likely cause of his acute pancreatitis -per diem interpreter consult appreciated -start Lopid per GI recommendations when tolerating diet. (8) Hyponatre
--- NOTE | 2022-01-02 10:21 | PM.PNCARD ---
Progress Note: A&P Assessment and Plan (1) Atypical chest pain: Code(s): R07.89 - Other chest pain Status: Acute Assessment and Plan: Not coronary in etiology (2) Acute pancreatitis: Code(s): K85.90 - Acute pancreatitis without necrosis or infection, unspecified Status: Acute Assessment and Plan: Probably from hypertriglyceridemia (3) Acute thrombosis of splenic vein: Code(s): I82.890 - Acute embolism and thrombosis of other specified veins Status: Acute Assessment and Plan: On heparin (4) Coronary artery disease: Code(s): I25.10 - Atherosclerotic heart disease of [place] coronary artery without angina pectoris Status: Acute Assessment and Plan: Continue statin, aspirin, Repatha, metoprolol, spironolactone, furosemide (5) Postoperative atrial fibrillation: Code(s): I97.89 - Other postprocedural complications and disorders of the circulatory system, not elsewhere classified; I48.91 - Unspecified atrial fibrillation Status: Acute Assessment and Plan: On heparin currently because of splenic vein thrombosis, should be shifted back to [facility] at some point. Telemetry can be discontinued, he's in sinus rhythm. (6) Hypokalemia: Code(s): E87.6 - Hypokalemia Status: Acute Assessment and Plan: KCL 40 mg p.o. x1. Plan IV fluids have been discontinued. Remains mildly volume overloaded today. Will give a dose of IV furosemide 20 mg IV x1. Replace his potassium. Follow volume status Subjective Date/time seen: 01/02/22 10:21 Interval history: Complaining of LUQ pain that worsened after having breakfast. No cardiac complaints. Denies chest pain, palpitations, shortness of breath. Review of Systems Constitutional: Constitutional: Denies chills and Denies excessive sweating Eyes: Eyes: Denies blurry vision ENT: Reports Normal hearing present Cardiovascular: Cardiovascular: Denies chest pain Respiratory: Respiratory: Denies chest congestion Gastrointestinal: Gastrointestinal: Reports abdominal pain Genitourinary: Genitourinary: Denies hematuria Musculoskeletal: Musculoskeletal: Denies back pain Integumentary/Breasts: Skin/Breast: Denies dry skin Neurologic: Reports Normal hearing present, Denies Abnormal speech present and Denies confusion Psychiatric: Psychiatric: Denies confusion Endocrine: Endocrine: Denies excessive sweating Hematologic/Lymphatic: Hematologic/Lymphatic: Denies easy bruising Allergic/Immunologic: Allergic/Immunologic: Denies GI upset with certain foods Exam Narrative: Awake alert oriented Const: General: comfortable; No confusion Orientation/consciousness: No confusion HENMT: Ears: hearing grossly normal bilaterally Eyes: General: appearance normal, both eyes and all related structures Sclera: sclerae normal Neck: Neck: supple and no JVD Carotids: no bruits Resp: Auscultation: diminished lung sounds Cardio: Rate: regular rate Rhythm: regular rhythm Urinary Catheter: Urinary Catheter: patent and draining Skin: General skin exam: normal color Neuro: General: No confusion Cranial nerves: Yes Normal hearing present Speech: normal speech and No Abnormal speech present Sensory Exam: normal sensation Extrem: General: edema Psych: Mental Status: mental status grossly normal Objective Data Vital Signs Vital Signs: Vital Signs - 24 hr 01/01/22 12:00 01/01/22 12:00 01/01/22 16:00 Temperature 36.4 C 36.5 C Pulse Rate 74 73 70 Respiratory Rate 16 16 Blood Pressure 115/58 L 140/56 L Pulse Oximetry 97 98 Oxygen Delivery 01/01/22 16:00 01/01/22 20:56 01/01/22 20:30 Temperature 36.2 C L Pulse Rate 59 L 73 68 Respiratory Rate 20 Blood Pressure 137/60 Pulse Oximetry 96 98 Oxygen Delivery Room Air 01/02/22 00:30 01/01/22 20:00 01/02/22 00:00 Temperature 36.7 C Pulse Rate 68 68 69 Respiratory Rate 18 Blood Pres
[2022-01-02 10:36] LABS: Lipase 894 U/L (23-300)
[2022-01-02] MEDS: FUROSEMIDE INJ 40 MG/4 ML VIAL 20 MG IV PUSH (10:59)
[2022-01-02 11:37] LABS: Glucose Point of Care 220 mg/dl (65-105)
[2022-01-02] MEDS: INSULIN ASPART (*BKC) 100 UNITS/ML SUB-Q (11:45)
[2022-01-02 12:30] LABS: Appearance Urine Clear (Clear); Color Urine Yellow (Yellow); Protein Urine Negative (Negative); Specific Grav Ur 1.015 (1.001-1.035); pH Urine 6.5 (5.0-9.0)
[2022-01-02 12:31] LABS: Add Urine Microscopic? YES; Bilirubin Urine Negative (Negative); Blood Urine Trace-Intact (Negative); Glucose Urine UA Trace mg/dL (Negative); Ketones Urine Negative (Negative); Leukocyte Esterase Ur Negative LEU/UL (Negative); Nitrate Urine Negative (Negative)
[2022-01-02 12:35] LABS: RBC Urine 0-2 /hpf (0-2); WBC Urine 0-3 /hpf
--- NOTE | 2022-01-02 13:17 | WPDGIPROGNO ---
Progress Note: A&P Assessment and Plan (1) Acute pancreatitis: Code(s): K85.90 - Acute pancreatitis without necrosis or infection, unspecified Status: Acute Assessment and Plan: Patient appears to have some component of ongoing pancreatitis. His lipase remains elevated at 894 today. Triglycerides elevated as well. Elevated triglycerides appear to be etiology for pancreatitis. Although previous alcohol use is a consideration. Patient denies any recent ongoing alcohol use. Continue supportive care. Would continue liquid diet today. Pain control as tolerated. Advance diet only after pain has subsided to a degree. (2) Obese: Code(s): E66.9 - Obesity, unspecified Status: Acute Assessment and Plan: Patient quite obese. Weight loss calorie restriction encourage. Undoubtedly this contributes to his diabetes. (3) Hypertriglyceridemia: Code(s): E78.1 - Pure hyperglyceridemia Status: Acute Assessment and Plan: Elevated triglycerides likely contribute to patient's pancreatitis. Will need strict dietary and medication control after discharge. (4) JOYA (acute kidney injury): Code(s): N17.9 - Acute kidney failure, unspecified Status: Acute (5) Acute thrombosis of splenic vein: Code(s): I82.890 - Acute embolism and thrombosis of other specified veins Status: Acute Assessment and Plan: Nonocclusive splenic vein thrombus identified by CT scanning. Patient now on anticoagulants under the direction of hematology service. (6) Diabetes: Code(s): E11.9 - Type 2 diabetes mellitus without complications Status: Chronic Subjective Date/time seen: 01/02/22 13:17 Patient continues to feel poorly. On talking with him he appears quite frustrated. Apparently continues to have abdominal pain intermittently. He has difficulty describing this. Review of Systems Review of Systems: Review of systems non contributory. Exam Narrative: Physical exam reveals patient to be lying in bed. HEENT exam reveals no icterus. Lungs are clear. Heart without murmur. Abdomen is obese. He has mild tenderness in the upper abdomen. No obvious masses palpable at this time. Objective Data Vital Signs Vital Signs: Vital Signs - 24 hr 01/01/22 16:00 01/01/22 16:00 01/01/22 20:56 Temperature 97.7 F Pulse Rate 70 59 L 73 Respiratory Rate 16 Blood Pressure 140/56 L Pulse Oximetry 98 96 Oxygen Delivery Room Air 01/01/22 20:30 01/02/22 00:30 01/01/22 20:00 Temperature 97.2 F L 98.0 F Pulse Rate 68 68 68 Respiratory Rate 20 18 Blood Pressure 137/60 115/56 L Pulse Oximetry 98 97 Oxygen Delivery 01/02/22 00:00 01/02/22 04:00 01/02/22 04:00 Temperature 97.9 F Pulse Rate 69 73 74 Respiratory Rate 20 Blood Pressure 121/66 Pulse Oximetry 98 Oxygen Delivery 01/02/22 07:44 01/02/22 08:08 01/02/22 08:09 Temperature Pulse Rate 82 82 Respiratory Rate Blood Pressure Pulse Oximetry Oxygen Delivery Room Air 01/02/22 08:45 01/02/22 08:00 Temperature 97.6 F Pulse Rate 84 84 Respiratory Rate 22 H Blood Pressure 120/66 Pulse Oximetry 94 Oxygen Delivery Intake/Output Intake/Output: Intake & Output 12/30/21 12/31/21 01/01/22 01/02/22 23:59 23:59 23:59 23:59 Intake Total 5420 6880 4070 3250 Output Total 3240 7300 4600 1600 Balance 2180 -420 -530 1650 Meds/Results Medications: Active Medications Generic Name Dose Route Start Last Admin Trade Name Freq PRN Reason Stop Dose Admin Acetaminophen 500 mg 12/27/21 22:26 12/31/21 14:48 Acetaminophen 500 Mg Tablet PO 500 mg DAILY PRN Administration Pain Rated 1-3 Hydrocodone Bitart/Acetaminophen 1 tab 01/01/22 15:35 01/02/22 04:03 Hydrocodone/Acetaminophen (*Crx) 5-325 Mg Tablet PO 1 tab Q4H PRN Administration Pain Rated 4-6 Amiodarone HCl 200 mg 12/28/21 08:00 01/02/22 08:09 Amiodaron
[2022-01-02 14:53] LABS: Chloride Rand Ur 41 mmol/L (32-290); Chloride/Creatinine Rand Ur 205 (23-275); Creatinine Random Urine 20 mg/dL (20-320)
[2022-01-02 16:21] LABS: Glucose Point of Care 156 mg/dl (65-105)
[2022-01-02] MEDS: POTASSIUM CHLORIDE 20 MEQ TABLET.ER 40 MEQ PO (16:37)
[2022-01-02] MEDS: INSULIN GLARGINE (*BKC) 100 UNITS/ML 20 UNITS SUB-Q (20:25)
[2022-01-02 20:47] LABS: Glucose Point of Care 243 mg/dl (65-105)
[2022-01-02 22:00] LABS: Total Protein/Creatinine Ratio 565 mg/g creat (22-128)
[2022-01-03] VITALS: BP 138/72; PULSE 70; RESP 16; TEMP 36.4; O2SAT 96
[2022-01-03] MEDS: ONDANSETRON INJ 4 MG/2 ML VIAL IV PUSH ×3 (01:59→21:09)
[2022-01-03] MEDS: MORPHINE SULFATE (*CRX) 4 MG/ML INJ IV PUSH ×5 (01:59→21:08)
[2022-01-03 03:27] LABS: Potassium 3.8 mmol/L (3.4-5.0)
[2022-01-03 06:12] VITALS: BP 147/75; PULSE 73; RESP 18; TEMP 36.6; O2SAT 95
[2022-01-03] MEDS: HEPARIN SOD/D5W 100 UNITS/ML 25,000 UNITS/250 ML BAG 30 UNITS IV CONT ×3 (06:25→21:12)
[2022-01-03 07:48] LABS: Glucose Point of Care 202 mg/dl (65-105)
[2022-01-03] MEDS: INSULIN ASPART (*BKC) 100 UNITS/ML SUB-Q ×2 (07:59→16:38)
[2022-01-03] MEDS: INSULIN ASPART (*BKC) 100 UNITS/ML 10 UNITS SUB-Q ×2 (08:01→16:39)
[2022-01-03] MEDS: GABAPENTIN 100 MG CAPSULE PO ×3 (08:11→16:41)
[2022-01-03] MEDS: ASPIRIN 81 MG CHEWABLE TABLET PO (08:11)
[2022-01-03] MEDS: TAMSULOSIN HCL 0.4 MG CAPSULE PO (08:11)
[2022-01-03] MEDS: CHOLECALCIFEROL 1,000 UNITS TABLET 1000 UNITS PO (08:11)
[2022-01-03] MEDS: ATORVASTATIN 40 MG TABLET 80 MG PO (08:11)
[2022-01-03] MEDS: SPIRONOLACTONE 25 MG TABLET PO (08:11)
[2022-01-03] MEDS: FAMOTIDINE 20 MG TABLET PO ×2 (08:12→16:41)
[2022-01-03] MEDS: POTASSIUM CHLORIDE 20 MEQ TABLET.ER 40 MEQ PO ×2 (08:12→16:41)
[2022-01-03] MEDS: AMIODARONE HCL 200 MG TABLET PO (08:12)
[2022-01-03] MEDS: METOPROLOL TARTRATE 12.5 MG TABLET PO ×2 (08:12→21:16)
[2022-01-03 08:21] LABS: Hematocrit 40.7 % (42.0-52.0); Hemoglobin 12.9 g/dL (14.0-18.0); Mean Corpuscular HGB Conc 31.7 g/dl (32-36); Mean Corpuscular Hemoglobin 29.7 pg (26-34); Mean Corpuscular Volume 93.6 fl (80-100); Mean Platelet Volume 11.5 fl (7.4-10.4); Platelet Count Result 361 k/mm3 (150-375); Red Blood Count 4.35 M/mm3 (4.6-6.20)
[2022-01-03 08:33] LABS: Alanine Aminotransferase 21 U/L (6-50); Albumin Level 3.3 g/dL (3.5-5.1); Alkaline Phosphatase 81 U/L (38-126); Anion Gap 8 mmol/L (8-16); Aspartate Amino Transferase 29 U/L (17-59); Bilirubin,Total 0.4 mg/dL (0.2-1.3); Blood Urea Nitrogen 12 mg/dL (9-20); Calcium 8.3 mg/dL (8.4-10.2); Carbon Dioxide 28 mmol/L (22-30); Chloride 98 mmol/L (98-107); Estimated CRCL calculation 88 ml/min; Estimated Glomerular Filt Rate > 60; Glucose 183 mg/dL (65-110); Potassium 3.9 mmol/L (3.4-5.0); Sodium 134 mmol/L (137-145)
[2022-01-03 09:45] LABS: Eosinophils Absolute Manual 0.65 K/mm3 (0.02-0.5); Eosinophils Percent Manual 5 % (0-4); Lymphocytes Absolute Manual 4.68 K/mm3 (1.1-4.5); Monocytes Absolute Manual 1.04 K/mm3 (0.1-0.90); Monocytes Percent Manual 8 % (3-9); Neutrophils Percent Manual 51 % (46-73); Total Cells Counted 100
[2022-01-03 09:51] LABS: Platelet Estimate Adequate (Adequate)
[2022-01-03 10:54] VITALS: BP 139/62; PULSE 65; RESP 18; TEMP 35.8; O2SAT 94
[2022-01-03 11:47] LABS: Glucose Point of Care 172 mg/dl (65-105)
--- NOTE | 2022-01-03 12:09 | PM.IMPN ---
Progress Note: A&P Assessment and Plan (1) Acute thrombosis of splenic vein: Code(s): I82.890 - Acute embolism and thrombosis of other specified veins <Brenda Dillard PA-C - Last Filed: 01/03/22 12:18> Status: Acute <OLI RíosC - Last Filed: 01/03/22 12:18> Assessment and Plan: -non-occlusive, noted on admission CT. He was reportedly compliant with his Eliquis prior to admission. -Hematology, Dr. Kearney consulted and appreciate recommendations. -12/30/21 Abdominal pain is improving. On heparin drip. Per Hem/Onc continue heparin drip, transition to Lovenox 1 mg/kg BID x 14 days upon discharge and then follow up to start Xarelto. -12/31/21 unchanged from yesterday. No s/s bleeding. Transition to lovenox at discharge per Hematology recommendations. -01/01 unchanged. Continue heparin drip per hematology until discharge, then start SQ lovenox BID x 2 weeks. Patient will need lovenox admin instructions prior to dc. -01/02 Continues to have LUQ abdominal pain. Patient is tolerating his full liquid diet with some pain, and is hesitant to advance his diet at this point. On heparin drip. Lovenox on D/C x 2 weeks until f/u with Dr. Kearney in office. -01/03 continued pain. Is still on heparin drip. Discharge plan remains unchanged. <Brenda Dillard PA-C - Last Filed: 01/03/22 12:18> (2) Acute pancreatitis: Code(s): K85.90 - Acute pancreatitis without necrosis or infection, unspecified <Brenda Dillard PA-C - Last Filed: 01/03/22 12:18> Status: Acute <Brenda Dillard PA-C - Last Filed: 01/03/22 12:18> Assessment and Plan: -Noted on admission CT; lipase 6946 on arrival & trending down. LFTs and bili normal. -GI following and appreciate recommendations. Presumed secondary to hypertriglyceridemia. -Continued on Full liquid diet. Continue antiemetics, and pain control -RUQ US - region of pancreas obscured by shadowing bowel gas -sole rounding machine operator consulted -01/01 unchanged. Lipase >700, mildly increased from yesterday. He is taking full liquid diet. Advance diet per GI. Pain control. will add norco 5/325 mg Q4 hours PRN moderate pain. He will need triglyceride lowering medication when tolerating regular diet. -01/02 WBC 13, lipase 894 (729) along with perisistent pain with eating. He is on full liquids currently. He does not wish to advance diet, in GI does agree with this plan to continue full liquid diet until pain is better controlled. Has taken both morphine and norco today for pain control. Repeat UA due to rise in WBC. -01/03-WBC 13 again today. Patient does wish to advance his diet today, though he does have some sporadic pain. We will trial a low-fat diet for dinner and see how his pain is. Pain control as above. <Brenda Dillard PA-C - Last Filed: 01/03/22 12:18> (3) JOYA (acute kidney injury): Code(s): N17.9 - Acute kidney failure, unspecified <Brenda Dillard PA-C - Last Filed: 01/03/22 12:18> Status: Acute <Brenda Dillard PA-C - Last Filed: 01/03/22 12:18> Assessment and Plan: -D/C IV fluids due to mild volume overload. -Monitor I&O. -Nephrology following. 01/02- Resolved. Meehan has been removed today, void trial. Single dose IV lasix given by cardiology yesterday. 01/03- No obstructive symptoms. Patient has been urinating frequently. <Brenda Dillard PA-C - Last Filed: 01/03/22 12:18> (4) Hypoxia: Code(s): R09.02 - Hypoxemia <Brenda Dillard PA-C - Last Filed: 01/03/22 12:18> Status: Acute <Brenda Dillard PA-C - Last Filed: 01/03/22 12:18> Assessment and Plan: -Weaned to room air. Continue incentive spirometery. Unlikely 2/2 pneumonia. Continue to hold antibiotics. -VQ to r/o PE inconclusive; venous dopplers w/o DVT patient is already being anticoagulated for splenic vein thrombus -01/02- patient is mildly tachypneic, but saturating on Room air. <Brenda Dillard PA-C - Last Filed: 01/03/22 12:
[2022-01-03 12:46] VITALS: BMI 45.0
--- NOTE | 2022-01-03 13:08 | WPDGIPROGNO ---
Subjective Date/time seen: 01/03/22 13:08 Objective Data Vital Signs Vital Signs: Vital Signs - 24 hr 01/02/22 14:00 01/02/22 17:53 01/02/22 20:26 Temperature 36.7 C 36.6 C Pulse Rate 71 81 68 Respiratory Rate 16 16 Blood Pressure 145/67 H 125/65 Pulse Oximetry 95 97 Oxygen Delivery 01/02/22 21:44 01/03/22 00:00 01/02/22 20:50 Temperature 36.5 C 36.4 C Pulse Rate 65 70 Respiratory Rate 18 16 Blood Pressure 116/59 L 138/72 Pulse Oximetry 98 96 98 Oxygen Delivery Room Air 01/03/22 06:12 01/03/22 10:54 Temperature 36.6 C 35.8 C L Pulse Rate 73 65 Respiratory Rate 18 18 Blood Pressure 147/75 H 139/62 Pulse Oximetry 95 94 Oxygen Delivery Intake/Output Intake/Output: Intake & Output 12/31/21 01/01/22 01/02/22 01/03/22 23:59 23:59 23:59 23:59 Intake Total 6880 4070 3980 1850 Output Total 7300 4600 1600 Balance -420 -530 2380 1850 Meds/Results Medications: Active Medications Generic Name Dose Route Start Last Admin Trade Name Freq PRN Reason Stop Dose Admin Acetaminophen 500 mg 12/27/21 22:26 12/31/21 14:48 Acetaminophen 500 Mg Tablet PO 500 mg DAILY PRN Administration Pain Rated 1-3 Hydrocodone Bitart/Acetaminophen 1 tab 01/01/22 15:35 01/02/22 21:15 Hydrocodone/Acetaminophen (*Crx) 5-325 Mg Tablet PO 1 tab Q4H PRN Administration Pain Rated 4-6 Amiodarone HCl 200 mg 12/28/21 08:00 01/03/22 08:12 Amiodarone Hcl 200 Mg Tablet PO 200 mg DAILY@0800 LUCERO Administration Aspirin 81 mg 12/28/21 08:00 01/03/22 08:11 Aspirin 81 Mg Chewable Tablet PO 81 mg DAILY@0800 LUCERO Administration Atorvastatin Calcium 80 mg 12/28/21 09:00 01/03/22 08:11 Atorvastatin 40 Mg Tablet PO 80 mg DAILY LUCERO Administration Calcium Carbonate 200 mg 01/03/22 12:53 Calcium Carbonate (Tums) 500 Mg (200 Mg Elemental) PO Q6H PRN Indigestion Dextrose 12.5 gm 12/28/21 00:20 Dextrose 50% 25 Gm/50 Ml Syringe IV PUSH PRN PRN Hypoglycemia Protocol Dicyclomine HCl 20 mg 01/03/22 12:56 Dicyclomine Hcl Inj 20 Mg/2 Ml Vial IM Q6H PRN Abdominal Cramping Famotidine 20 mg 12/28/21 09:00 01/03/22 08:12 Famotidine 20 Mg Tablet PO 20 mg BID LUCERO Administration Gabapentin 100 mg 12/28/21 09:00 01/03/22 08:11 Gabapentin 100 Mg Capsule PO 100 mg TID LUCERO Administration Glucagon 1 mg 12/28/21 00:20 Glucagon For Inj 1 Mg Vial IM PRN PRN Hypoglycemia Protocol Glucose 15 gm 12/28/21 00:20 Glucose Oral Gel 15 Gm Of Glucse In 37.5 Gm Tube PO PRN PRN Hypoglycemia Protocol Heparin Sodium (Porcine) 7,000 units 12/29/21 08:00 12/30/21 17:32 Heparin Sodium 5,000 Units/Ml Vial IV PUSH 7,000 units PRN PRN Administration aPTT less than 55 seconds Heparin Sodium (Porcine) 3,500 units 12/29/21 08:00 12/31/21 15:09 Heparin Sodium 5,000 Units/Ml Vial IV PUSH 3,500 units PRN PRN Administration aPTT 55 - 70 seconds Dextrose 1,000 mls @ 150 mls/hr 12/28/21 00:20 Dextrose 5% 1,000 Ml IVPB PRN PRN Hypoglycemia Protocol Heparin Sodium/Dextrose 25,000 units in 250 mls @ 30 mls/hr 12/29/21 08:00 01/03/22 06:25 Heparin Sodium/D5w 100 Units/Ml IV CONT 3,000 units/hr .Q8H20M LUCERO 30 mls/hr Administration Protocol 3,000 UNITS/HR Insulin Aspart 4 - 8 units 12/28/21 08:00 01/03/22 11:59 Insulin Aspart (*Bkc) 100 Units/Ml SUB-Q Not Given [facility] Protocol Insulin Aspart 10 units 12/31/21 17:00 01/03/22 12:00 Insulin Aspart (*Bkc) 100 Units/Ml SUB-Q Not Given TIDWM [facility] Insulin Glargine 20 units 01/01/22 21:00 01/02/22 20:25 Insulin Glargine (*Bkc) 100 Units/Ml SUB-Q 20 units HS LUCERO Administration Methocarbamol 750 mg 12/27/21 22:26 01/01/22 21:09 Methocarbamol 750 Mg Tablet PO 750 mg TID PRN Administration Muscle Pain Metoprolol Tartrate
--- NOTE | 2022-01-03 13:09 | WPDGIPROGNO ---
Subjective Date/time seen: 01/03/22 13:09 This very pleasant gentleman continues to have abdominal pain after eating. No nausea or vomiting reported. Vital signs stable. Heart rate rhythm regular. Lungs decreased breath sounds in the bases. Abdomen is soft. impression: Acute pancreatitis secondary to hypertriglyceridemia. Splenic vein thrombosis. Nonalcoholic fatty liver disease. PMH /Problems: JOYA resolved, HLD, HTN, obesity, CAD status post CABG Recommendation: Continue clear liquids. Recheck triglycerides level. Hospitalist to begin treatment of underlying hypertriglyceridemia. Advance diet as tolerated. Objective Data Vital Signs Vital Signs: Vital Signs - 24 hr 01/02/22 14:00 01/02/22 17:53 01/02/22 20:26 Temperature 36.7 C 36.6 C Pulse Rate 71 81 68 Respiratory Rate 16 16 Blood Pressure 145/67 H 125/65 Pulse Oximetry 95 97 Oxygen Delivery 01/02/22 21:44 01/03/22 00:00 01/02/22 20:50 Temperature 36.5 C 36.4 C Pulse Rate 65 70 Respiratory Rate 18 16 Blood Pressure 116/59 L 138/72 Pulse Oximetry 98 96 98 Oxygen Delivery Room Air 01/03/22 06:12 01/03/22 10:54 Temperature 36.6 C 35.8 C L Pulse Rate 73 65 Respiratory Rate 18 18 Blood Pressure 147/75 H 139/62 Pulse Oximetry 95 94 Oxygen Delivery Intake/Output Intake/Output: Intake & Output 12/31/21 01/01/22 01/02/22 01/03/22 23:59 23:59 23:59 23:59 Intake Total 6880 4070 3980 1850 Output Total 7300 4600 1600 Balance -420 -530 2380 1850 Meds/Results Medications: Active Medications Generic Name Dose Route Start Last Admin Trade Name Freq PRN Reason Stop Dose Admin Acetaminophen 500 mg 12/27/21 22:26 12/31/21 14:48 Acetaminophen 500 Mg Tablet PO 500 mg DAILY PRN Administration Pain Rated 1-3 Hydrocodone Bitart/Acetaminophen 1 tab 01/01/22 15:35 01/02/22 21:15 Hydrocodone/Acetaminophen (*Crx) 5-325 Mg Tablet PO 1 tab Q4H PRN Administration Pain Rated 4-6 Amiodarone HCl 200 mg 12/28/21 08:00 01/03/22 08:12 Amiodarone Hcl 200 Mg Tablet PO 200 mg DAILY@0800 LUCERO Administration Aspirin 81 mg 12/28/21 08:00 01/03/22 08:11 Aspirin 81 Mg Chewable Tablet PO 81 mg DAILY@0800 LUCERO Administration Atorvastatin Calcium 80 mg 12/28/21 09:00 01/03/22 08:11 Atorvastatin 40 Mg Tablet PO 80 mg DAILY LUCERO Administration Calcium Carbonate 200 mg 01/03/22 12:53 Calcium Carbonate (Tums) 500 Mg (200 Mg Elemental) PO Q6H PRN Indigestion Dextrose 12.5 gm 12/28/21 00:20 Dextrose 50% 25 Gm/50 Ml Syringe IV PUSH PRN PRN Hypoglycemia Protocol Dicyclomine HCl 20 mg 01/03/22 12:56 Dicyclomine Hcl Inj 20 Mg/2 Ml Vial IM Q6H PRN Abdominal Cramping Famotidine 20 mg 12/28/21 09:00 01/03/22 08:12 Famotidine 20 Mg Tablet PO 20 mg BID LUCERO Administration Gabapentin 100 mg 12/28/21 09:00 01/03/22 08:11 Gabapentin 100 Mg Capsule PO 100 mg TID LUCERO Administration Glucagon 1 mg 12/28/21 00:20 Glucagon For Inj 1 Mg Vial IM PRN PRN Hypoglycemia Protocol Glucose 15 gm 12/28/21 00:20 Glucose Oral Gel 15 Gm Of Glucse In 37.5 Gm Tube PO PRN PRN Hypoglycemia Protocol Heparin Sodium (Porcine) 7,000 units 12/29/21 08:00 12/30/21 17:32 Heparin Sodium 5,000 Units/Ml Vial IV PUSH 7,000 units PRN PRN Administration aPTT less than 55 seconds Heparin Sodium (Porcine) 3,500 units 12/29/21 08:00 12/31/21 15:09 Heparin Sodium 5,000 Units/Ml Vial IV PUSH 3,500 units PRN PRN Administration aPTT 55 - 70 seconds Dextrose 1,000 mls @ 150 mls/hr 12/28/21 00:20 Dextrose 5% 1,000 Ml IVPB PRN PRN Hypoglycemia Protocol Heparin Sodium/Dextrose 25,000 units in 250 mls @ 30 mls/hr 12/29/21 08:00 01/03/22 06:25 Heparin Sodium/D5w 100 Units/Ml IV CONT 3,000 units/hr .Q8H20M [facility] 30 mls/hr Administra
[2022-01-03 13:28] LABS: Lipase 662 U/L (23-300)
[2022-01-03] MEDS: DICYCLOMINE HCL INJ 20 MG/2 ML VIAL IM (13:28)
[2022-01-03 13:31] LABS: Hematocrit 38.4 % (42.0-52.0); Hemoglobin 12.5 g/dL (14.0-18.0); Mean Corpuscular HGB Conc 32.6 g/dl (32-36); Mean Corpuscular Hemoglobin 29.6 pg (26-34); Mean Corpuscular Volume 90.8 fl (80-100); Mean Platelet Volume 10.6 fl (7.4-10.4); Platelet Count Result 356 k/mm3 (150-375); Red Blood Count 4.23 M/mm3 (4.6-6.20); Red Cell Distribution Width 13.2 % (11.5-14.5); White Blood Count 13.7 K/mm3 (4.5-10.0)
[2022-01-03 13:49] LABS: Anion Gap 6 mmol/L (8-16); Blood Urea Nitrogen 12 mg/dL (9-20); Calcium 8.4 mg/dL (8.4-10.2); Carbon Dioxide 32 mmol/L (22-30); Chloride 96 mmol/L (98-107); Estimated CRCL calculation 88 ml/min; Estimated Glomerular Filt Rate > 60; Glucose 220 mg/dL (65-110); Magnesium 1.5 mg/dL (1.6-2.3); Phosphorus 4.2 mg/dL (2.5-4.5); Potassium 4.2 mmol/L (3.4-5.0); Sodium 134 mmol/L (137-145)
[2022-01-03 13:50] LABS: Cholesterol 95 mg/dL (0-200); HDL Direct 30 mg/dL; Triglycerides 231 mg/dL (<150)
[2022-01-03 14:00] LABS: LDL Cholesterol Direct 34 mg/dL
[2022-01-03 15:05] VITALS: BP 136/65; PULSE 75; RESP 18; TEMP 36.7; O2SAT 97
[2022-01-03 16:33] LABS: Glucose Point of Care 211 mg/dl (65-105)
[2022-01-03 18:00] VITALS: BP 151/78; PULSE 77; RESP 22; TEMP 35.8; O2SAT 96
--- NOTE | 2022-01-03 20:45 | PC.NURSE ---
To GI Lab per [rayray ], IV [20 left ac ]. Report given to [Marissa Marks. Pt received soap suds enema x2. Still actively bleeding. ].
[2022-01-03] MEDS: INSULIN GLARGINE (*BKC) 100 UNITS/ML 20 UNITS SUB-Q (21:12)
[2022-01-03 21:16] VITALS: BP 110/64; PULSE 73; RESP 16; TEMP 36.4; O2SAT 99
[2022-01-03 21:36] LABS: Glucose Point of Care 220 mg/dl (65-105)
[2022-01-04] VITALS (7 sets, daily range): BP systolic 101–146; BP diastolic 59–67; PULSE 67–85; RESP 12–20; TEMP 36.1–36.7; O2SAT 93–99
[2022-01-04] MEDS: MORPHINE SULFATE (*CRX) 4 MG/ML INJ IV PUSH ×3 (01:20→23:49)
[2022-01-04] MEDS: ONDANSETRON INJ 4 MG/2 ML VIAL IV PUSH ×3 (01:20→23:49)
[2022-01-04 03:09] LABS: Hematocrit 37.2 % (42.0-52.0); Hemoglobin 11.8 g/dL (14.0-18.0); Mean Corpuscular HGB Conc 31.7 g/dl (32-36); Mean Corpuscular Hemoglobin 29.3 pg (26-34); Mean Corpuscular Volume 92.3 fl (80-100); Mean Platelet Volume 10.4 fl (7.4-10.4); Platelet Count Result 335 k/mm3 (150-375); Red Blood Count 4.03 M/mm3 (4.6-6.20); Red Cell Distribution Width 13.1 % (11.5-14.5)
[2022-01-04 03:21] LABS: Partial Thromboplastin Time 119.2 SECONDS (22.3-36.8)
[2022-01-04 03:36] LABS: Platelet Estimate Adequate (Adequate)
[2022-01-04 03:37] LABS: Band Neutrophils Percent 7 % (0-6); Eosinophils Absolute Manual 0.72 K/mm3 (0.02-0.5); Eosinophils Percent Manual 6 % (0-4); Lymphocytes Percent Manual 30 % (18-44); Monocytes Percent Manual 10 % (3-9); Neutrophils Absolute Manual 6.48 K/mm3 (1.3-6.7); Neutrophils Percent Manual 47 % (46-73); Total Cells Counted 100
[2022-01-04 05:17] LABS: Alanine Aminotransferase 19 U/L (6-50); Albumin Level 2.7 g/dL (3.5-5.1); Alkaline Phosphatase 74 U/L (38-126); Anion Gap 4 mmol/L (8-16); Aspartate Amino Transferase 25 U/L (17-59); Bilirubin,Total 0.4 mg/dL (0.2-1.3); Blood Urea Nitrogen 12 mg/dL (9-20); Carbon Dioxide 27 mmol/L (22-30); Chloride 103 mmol/L (98-107); Estimated CRCL calculation 98 ml/min; Estimated Glomerular Filt Rate > 60; Glucose 172 mg/dL (65-110); Potassium 4.6 mmol/L (3.4-5.0); Sodium 134 mmol/L (137-145)
[2022-01-04] MEDS: HEPARIN SOD/D5W 100 UNITS/ML 25,000 UNITS/250 ML BAG 28 UNITS IV CONT (06:26)
--- NOTE | 2022-01-04 08:01 | PM.IMPN ---
Progress Note: A&P Assessment and Plan (1) Acute thrombosis of splenic vein: Code(s): I82.890 - Acute embolism and thrombosis of other specified veins <Brenda Dillard PA-C - Last Filed: 01/04/22 14:31> Status: Acute <Brenda Dillard PA-C - Last Filed: 01/04/22 14:31> Assessment and Plan: -non-occlusive, noted on admission CT. He was reportedly compliant with his Eliquis prior to admission. -Hematology, Dr. Kearney consulted and appreciate recommendations. -12/30/21 Abdominal pain is improving. On heparin drip. Per Hem/Onc continue heparin drip, transition to Lovenox 1 mg/kg BID x 14 days upon discharge and then follow up to start Xarelto. -12/31/21 unchanged from yesterday. No s/s bleeding. Transition to lovenox at discharge per Hematology recommendations. -01/01 unchanged. Continue heparin drip per hematology until discharge, then start SQ lovenox BID x 2 weeks. Patient will need lovenox admin instructions prior to dc. -01/02 Continues to have LUQ abdominal pain. Patient is tolerating his full liquid diet with some pain, and is hesitant to advance his diet at this point. On heparin drip. Lovenox on D/C x 2 weeks until f/u with Dr. Kearney in office. -01/03 continued pain. Is still on heparin drip. Discharge plan remains unchanged. -01/04 - Patient ate 100% of his low fat meal. He continues to have pain and is fearful of leaving while he still has pain. <Brenda Dillard PA-C - Last Filed: 01/04/22 14:31> (2) Acute pancreatitis: Code(s): K85.90 - Acute pancreatitis without necrosis or infection, unspecified <Brenda Dillard PA-C - Last Filed: 01/04/22 14:31> Status: Acute <Brenda Dillard PA-C - Last Filed: 01/04/22 14:31> Assessment and Plan: -Noted on admission CT; lipase 6946 on arrival & trending down. LFTs and bili normal. -GI following and appreciate recommendations. Presumed secondary to hypertriglyceridemia. -Continued on Full liquid diet. Continue antiemetics, and pain control -RUQ US - region of pancreas obscured by shadowing bowel gas -taker off consulted -01/01 unchanged. Lipase >700, mildly increased from yesterday. He is taking full liquid diet. Advance diet per GI. Pain control. will add norco 5/325 mg Q4 hours PRN moderate pain. He will need triglyceride lowering medication when tolerating regular diet. -01/02 WBC 13, lipase 894 (729) along with perisistent pain with eating. He is on full liquids currently. He does not wish to advance diet, in GI does agree with this plan to continue full liquid diet until pain is better controlled. Has taken both morphine and norco today for pain control. Repeat UA due to rise in WBC. -01/03-WBC 13 again today. Patient does wish to advance his diet today, though he does have some sporadic pain. We will trial a low-fat diet for dinner and see how his pain is. Pain control as above. -01/04-WBC 12, repeat TG 231. Patient started on Bentyl for stomach cramping. Likely D/C tomorrow. <Brenda Dillard PA-C - Last Filed: 01/04/22 14:31> (3) JOYA (acute kidney injury): Code(s): N17.9 - Acute kidney failure, unspecified <Brenda Dillard PA-C - Last Filed: 01/04/22 14:31> Status: Acute <Brenda Dillard PA-C - Last Filed: 01/04/22 14:31> Assessment and Plan: -D/C IV fluids due to mild volume overload. -Monitor I&O. -Nephrology following. 01/02- Resolved. Meehan has been removed today, void trial. Single dose IV lasix given by cardiology yesterday. 01/03- No obstructive symptoms. Patient has been urinating frequently. <Brenda Dillard PA-C - Last Filed: 01/04/22 14:31> (4) Hypoxia: Code(s): R09.02 - Hypoxemia <Brenda Dillard PA-C - Last Filed: 01/04/22 14:31> Status: Acute <Brenda Dillard PA-C - Last Filed: 01/04/22 14:31> Assessment and Plan: -Weaned to room air. Continue incentive spirometery. Unlikely 2/2 pneumonia. Continue to hold antibiotics. -VQ to r/o PE i
[2022-01-04 08:24] LABS: Glucose Point of Care 287 mg/dl (65-105)
[2022-01-04] MEDS: INSULIN ASPART (*BKC) 100 UNITS/ML SUB-Q ×2 (08:27→17:19)
[2022-01-04] MEDS: INSULIN ASPART (*BKC) 100 UNITS/ML 10 UNITS SUB-Q ×2 (08:28→17:20)
[2022-01-04] MEDS: methocarbamoL 750 MG TABLET PO (08:32)
[2022-01-04] MEDS: FAMOTIDINE 20 MG TABLET PO ×2 (08:32→17:22)
[2022-01-04] MEDS: SPIRONOLACTONE 25 MG TABLET PO (08:32)
[2022-01-04] MEDS: ATORVASTATIN 40 MG TABLET 80 MG PO (08:32)
[2022-01-04] MEDS: TAMSULOSIN HCL 0.4 MG CAPSULE PO (08:32)
[2022-01-04] MEDS: ASPIRIN 81 MG CHEWABLE TABLET PO (08:33)
[2022-01-04] MEDS: CHOLECALCIFEROL 1,000 UNITS TABLET 1000 UNITS PO (08:33)
[2022-01-04] MEDS: METOPROLOL TARTRATE 12.5 MG TABLET PO ×2 (08:33→19:31)
[2022-01-04] MEDS: POTASSIUM CHLORIDE 20 MEQ TABLET.ER 40 MEQ PO ×2 (08:33→17:22)
[2022-01-04] MEDS: AMIODARONE HCL 200 MG TABLET PO (08:33)
[2022-01-04] MEDS: GABAPENTIN 100 MG CAPSULE PO ×3 (08:33→17:22)
--- NOTE | 2022-01-04 10:01 | WPDGIPROGNO ---
Subjective Date/time seen: 01/04/22 10:01 Patient tolerated diet. Still having some abdominal pain on eating. No vomiting reported. Vital signs stable. Afebrile. Heart rate rhythm regular.? Lungs decreased breath sounds in the bases.? Abdomen is soft. ?Impression: Acute pancreatitis secondary to hypertriglyceridemia.? Splenic vein thrombosis.? Nonalcoholic fatty liver disease.? PMH? /Problems:? JOYA resolved, HLD, HTN, obesity, CAD status post CABG Recommendation: Continue diet as tolerated. Continue aggressive treatment of hypertriglyceridemia. Strict diabetic management and weight loss. Any further setbacks may consider repeating CT imaging at that time. Anticoagulation per Hematology. Objective Data Vital Signs Vital Signs: Vital Signs - 24 hr 01/03/22 10:54 01/03/22 15:05 01/03/22 18:00 Temperature 35.8 C L 36.7 C 35.8 C L Pulse Rate 65 75 77 Respiratory Rate 18 18 22 H Blood Pressure 139/62 136/65 151/78 H Pulse Oximetry 94 97 96 01/03/22 21:16 01/03/22 21:16 01/04/22 00:25 Temperature 36.4 C 36.7 C Pulse Rate 73 73 67 Respiratory Rate 16 14 Blood Pressure 110/64 101/60 Pulse Oximetry 99 94 01/04/22 05:13 Temperature 36.6 C Pulse Rate 70 Respiratory Rate 16 Blood Pressure 133/63 Pulse Oximetry 93 Intake/Output Intake/Output: Intake & Output 01/01/22 01/02/22 01/03/22 01/04/22 23:59 23:59 23:59 23:59 Intake Total 4070 3980 3080 1170 Output Total 4600 1600 Balance -530 2380 3080 1170 Meds/Results Medications: Active Medications Generic Name Dose Route Start Last Admin Trade Name Freq PRN Reason Stop Dose Admin Acetaminophen 500 mg 12/27/21 22:26 12/31/21 14:48 Acetaminophen 500 Mg Tablet PO 500 mg DAILY PRN Administration Pain Rated 1-3 Hydrocodone Bitart/Acetaminophen 1 tab 01/01/22 15:35 01/02/22 21:15 Hydrocodone/Acetaminophen (*Crx) 5-325 Mg Tablet PO 1 tab Q4H PRN Administration Pain Rated 4-6 Amiodarone HCl 200 mg 12/28/21 08:00 01/04/22 08:33 Amiodarone Hcl 200 Mg Tablet PO 200 mg DAILY@0800 LUCERO Administration Aspirin 81 mg 12/28/21 08:00 01/04/22 08:33 Aspirin 81 Mg Chewable Tablet PO 81 mg DAILY@0800 LUCERO Administration Atorvastatin Calcium 80 mg 12/28/21 09:00 01/04/22 08:32 Atorvastatin 40 Mg Tablet PO 80 mg DAILY LUCERO Administration Calcium Carbonate 200 mg 01/03/22 12:53 Calcium Carbonate (Tums) 500 Mg (200 Mg Elemental) PO Q6H PRN Indigestion Dextrose 12.5 gm 12/28/21 00:20 Dextrose 50% 25 Gm/50 Ml Syringe IV PUSH PRN PRN Hypoglycemia Protocol Dicyclomine HCl 20 mg 01/03/22 12:56 01/03/22 13:28 Dicyclomine Hcl Inj 20 Mg/2 Ml Vial IM 20 mg Q6H PRN Administration Abdominal Cramping Famotidine 20 mg 12/28/21 09:00 01/04/22 08:32 Famotidine 20 Mg Tablet PO 20 mg BID LUCERO Administration Gabapentin 100 mg 12/28/21 09:00 01/04/22 08:33 Gabapentin 100 Mg Capsule PO 100 mg TID LUCERO Administration Glucagon 1 mg 12/28/21 00:20 Glucagon For Inj 1 Mg Vial IM PRN PRN Hypoglycemia Protocol Glucose 15 gm 12/28/21 00:20 Glucose Oral Gel 15 Gm Of Glucse In 37.5 Gm Tube PO PRN PRN Hypoglycemia Protocol Heparin Sodium (Porcine) 7,000 units 12/29/21 08:00 12/30/21 17:32 Heparin Sodium 5,000 Units/Ml Vial IV PUSH 7,000 units PRN PRN Administration aPTT less than 55 seconds Heparin Sodium (Porcine) 3,500 units 12/29/21 08:00 12/31/21 15:09 Heparin Sodium 5,000 Units/Ml Vial IV PUSH 3,500 units PRN PRN Administration aPTT 55 - 70 seconds Dextrose 1,000 mls @ 150 mls/hr 12/28/21 00:20 Dextrose 5% 1,000 Ml IVPB PRN PRN Hypoglycemia Protocol Heparin Sodium/Dextrose 25,000 units in 250 mls @ 28 mls/hr 12/29/21 08:00 01/04/22 06:26 Heparin Sodium/D5w 100 Units/Ml IV CONT 2,800 units/hr .Q8H56M LUCERO 28 mls/hr
[2022-01-04 10:20] LABS: Partial Thromboplastin Time 68.6 SECONDS (22.3-36.8)
[2022-01-04] MEDS: HEPARIN SODIUM 5,000 UNITS/ML VIAL 3500 UNITS IV PUSH (11:11)
[2022-01-04] MEDS: HYDROcodone/acetaminophen (*CRX) 5-325 MG TABLET 1 TAB PO ×2 (11:15→15:19)
[2022-01-04 11:43] LABS: Glucose Point of Care 163 mg/dl (65-105)
[2022-01-04] MEDS: HEPARIN SOD/D5W 100 UNITS/ML 25,000 UNITS/250 ML BAG 30 UNITS IV CONT ×2 (15:09→23:42)
[2022-01-04 16:38] LABS: Glucose Point of Care 231 mg/dl (65-105)
[2022-01-04 17:07] LABS: Partial Thromboplastin Time 104.1 SECONDS (22.3-36.8)
[2022-01-04] MEDS: INSULIN GLARGINE (*BKC) 100 UNITS/ML 20 UNITS SUB-Q (19:28)
[2022-01-04 20:55] LABS: Glucose Point of Care 223 mg/dl (65-105)
[2022-01-04 23:55] LABS: Partial Thromboplastin Time 106.2 SECONDS (22.3-36.8)
[2022-01-05 01:08] VITALS: BP 121/66; PULSE 72; RESP 16; TEMP 37.1; O2SAT 96
[2022-01-05 06:00] VITALS: BP 132/59; PULSE 78; RESP 16; TEMP 36.5; O2SAT 95
[2022-01-05] MEDS: ONDANSETRON INJ 4 MG/2 ML VIAL IV PUSH (06:20)
[2022-01-05] MEDS: MORPHINE SULFATE (*CRX) 4 MG/ML INJ IV PUSH (06:20)
[2022-01-05 07:05] LABS: Hematocrit 36.4 % (42.0-52.0); Hemoglobin 11.8 g/dL (14.0-18.0); Mean Corpuscular HGB Conc 32.4 g/dl (32-36); Mean Corpuscular Hemoglobin 29.9 pg (26-34); Mean Corpuscular Volume 92.4 fl (80-100); Mean Platelet Volume 10.3 fl (7.4-10.4); Platelet Count Result 365 k/mm3 (150-375); Red Blood Count 3.94 M/mm3 (4.6-6.20); Red Cell Distribution Width 13.2 % (11.5-14.5); White Blood Count 13.4 K/mm3 (4.5-10.0)
[2022-01-05 07:15] LABS: Alanine Aminotransferase 25 U/L (6-50); Albumin Level 3.3 g/dL (3.5-5.1); Alkaline Phosphatase 75 U/L (38-126); Anion Gap 4 mmol/L (8-16); Aspartate Amino Transferase 27 U/L (17-59); Bilirubin,Total 0.4 mg/dL (0.2-1.3); Blood Urea Nitrogen 10 mg/dL (9-20); Calcium 8.2 mg/dL (8.4-10.2); Carbon Dioxide 28 mmol/L (22-30); Chloride 103 mmol/L (98-107); Estimated CRCL calculation 81 ml/min; Estimated Glomerular Filt Rate > 60; Glucose 177 mg/dL (65-110); Potassium 4.5 mmol/L (3.4-5.0); Sodium 135 mmol/L (137-145)
[2022-01-05 07:33] LABS: Anisocytosis 1+ (NORMAL); Atypical Lymphocytes Present; Band Neutrophils Percent 9 % (0-6); Eosinophils Absolute Manual 0.13 K/mm3 (0.02-0.5); Eosinophils Percent Manual 1 % (0-4); Hypochromasia 1+ (NORMAL); Lymphocytes Absolute Manual 2.81 K/mm3 (1.1-4.5); Metamyelocytes Percent 4 %; Monocytes Absolute Manual 0.67 K/mm3 (0.1-0.90); Monocytes Percent Manual 5 % (3-9); Myelocytes Percent 1 %; Neutrophils Absolute Manual 9.11 K/mm3 (1.3-6.7); Neutrophils Percent Manual 59 % (46-73); Poikilocytosis 1+ (NORMAL); Total Cells Counted 100
[2022-01-05 07:55] LABS: Glucose Point of Care 170 mg/dl (65-105)
[2022-01-05] MEDS: GABAPENTIN 100 MG CAPSULE PO ×2 (08:32→11:47)
[2022-01-05] MEDS: AMIODARONE HCL 200 MG TABLET PO (08:32)
[2022-01-05] MEDS: SPIRONOLACTONE 25 MG TABLET PO (08:32)
[2022-01-05] MEDS: ASPIRIN 81 MG CHEWABLE TABLET PO (08:32)
[2022-01-05] MEDS: METOPROLOL TARTRATE 12.5 MG TABLET PO (08:32)
[2022-01-05] MEDS: CHOLECALCIFEROL 1,000 UNITS TABLET 1000 UNITS PO (08:32)
[2022-01-05] MEDS: ATORVASTATIN 40 MG TABLET 80 MG PO (08:32)
[2022-01-05] MEDS: FAMOTIDINE 20 MG TABLET PO (08:32)
[2022-01-05] MEDS: POTASSIUM CHLORIDE 20 MEQ TABLET.ER 40 MEQ PO (08:32)
[2022-01-05] MEDS: TAMSULOSIN HCL 0.4 MG CAPSULE PO (08:32)
[2022-01-05 10:00] VITALS: BP 120/65; PULSE 67; RESP 16; TEMP 36.4; O2SAT 94
--- NOTE | 2022-01-05 10:27 | WPDGIPROGNO ---
Subjective Date/time seen: 01/05/22 10:27 Patient's abdominal pain is improved considerably. He is tolerating his diet. Vital signs stable.? Afebrile.? Heart rate rhythm regular.? Lungs decreased breath sounds in the bases.? Abdomen is soft. ?Impression: Acute pancreatitis secondary to hypertriglyceridemia.? Splenic vein thrombosis.? Nonalcoholic fatty liver disease.? PMH? /Problems:? JOYA resolved, HLD, HTN, obesity, CAD status post CABG Recommendation: Continue strict dietary control. Aggressively treat hyperlipidemia. Follow-up with Michele FISHER as outpatient. Objective Data Vital Signs Vital Signs: Vital Signs - 24 hr 01/04/22 13:30 01/04/22 17:30 01/04/22 19:31 Temperature 36.1 C L 36.1 C L Pulse Rate 76 85 80 Respiratory Rate 20 20 Blood Pressure 135/67 137/61 Pulse Oximetry 94 99 01/04/22 21:08 01/05/22 01:08 01/05/22 06:00 Temperature 36.4 C 37.1 C 36.5 C Pulse Rate 70 72 78 Respiratory Rate 18 16 16 Blood Pressure 135/64 121/66 132/59 L Pulse Oximetry 99 96 95 Intake/Output Intake/Output: Intake & Output 01/02/22 01/03/22 01/04/22 01/05/22 23:59 23:59 23:59 23:59 Intake Total 3980 3080 3110 1140 Output Total 1600 Balance 2380 3080 3110 1140 Meds/Results Medications: Active Medications Generic Name Dose Route Start Last Admin Trade Name Freq PRN Reason Stop Dose Admin Acetaminophen 500 mg 12/27/21 22:26 12/31/21 14:48 Acetaminophen 500 Mg Tablet PO 500 mg DAILY PRN Administration Pain Rated 1-3 Hydrocodone Bitart/Acetaminophen 1 tab 01/01/22 15:35 01/04/22 15:19 Hydrocodone/Acetaminophen (*Crx) 5-325 Mg Tablet PO 1 tab Q4H PRN Administration Pain Rated 4-6 Amiodarone HCl 200 mg 12/28/21 08:00 01/05/22 08:32 Amiodarone Hcl 200 Mg Tablet PO 200 mg DAILY@0800 LUCERO Administration Aspirin 81 mg 12/28/21 08:00 01/05/22 08:32 Aspirin 81 Mg Chewable Tablet PO 81 mg DAILY@0800 LUCERO Administration Atorvastatin Calcium 80 mg 12/28/21 09:00 01/05/22 08:32 Atorvastatin 40 Mg Tablet PO 80 mg DAILY LUCERO Administration Calcium Carbonate 200 mg 01/03/22 12:53 Calcium Carbonate (Tums) 500 Mg (200 Mg Elemental) PO Q6H PRN Indigestion Dextrose 12.5 gm 12/28/21 00:20 Dextrose 50% 25 Gm/50 Ml Syringe IV PUSH PRN PRN Hypoglycemia Protocol Dicyclomine HCl 20 mg 01/03/22 12:56 01/03/22 13:28 Dicyclomine Hcl Inj 20 Mg/2 Ml Vial IM 20 mg Q6H PRN Administration Abdominal Cramping Famotidine 20 mg 12/28/21 09:00 01/05/22 08:32 Famotidine 20 Mg Tablet PO 20 mg BID LUCERO Administration Gabapentin 100 mg 12/28/21 09:00 01/05/22 08:32 Gabapentin 100 Mg Capsule PO 100 mg TID LUCERO Administration Glucagon 1 mg 12/28/21 00:20 Glucagon For Inj 1 Mg Vial IM PRN PRN Hypoglycemia Protocol Glucose 15 gm 12/28/21 00:20 Glucose Oral Gel 15 Gm Of Glucse In 37.5 Gm Tube PO PRN PRN Hypoglycemia Protocol Heparin Sodium (Porcine) 7,000 units 12/29/21 08:00 12/30/21 17:32 Heparin Sodium 5,000 Units/Ml Vial IV PUSH 7,000 units PRN PRN Administration aPTT less than 55 seconds Heparin Sodium (Porcine) 3,500 units 12/29/21 08:00 01/04/22 11:11 Heparin Sodium 5,000 Units/Ml Vial IV PUSH 3,500 units PRN PRN Administration aPTT 55 - 70 seconds Dextrose 1,000 mls @ 150 mls/hr 12/28/21 00:20 Dextrose 5% 1,000 Ml IVPB PRN PRN Hypoglycemia Protocol Heparin Sodium/Dextrose 25,000 units in 250 mls @ 28 mls/hr 12/29/21 08:00 01/05/22 07:21 Heparin Sodium/D5w 100 Units/Ml IV CONT 2,800 units/hr .Q8H56M LUCERO 28 mls/hr Titration Protocol 2,800 UNITS/HR Insulin Aspart 4 - 8 units 12/28/21 08:00 01/05/22 07:49 Insulin Aspart (*Bkc) 100 Units/Ml SUB-Q Not Given TIDWM [facility] Protocol Insulin Aspart 10 units 12/31/21 17:00 01/05/22 07:50
[2022-01-05 11:32] LABS: Glucose Point of Care 302 mg/dl (65-105)
[2022-01-05] MEDS: INSULIN ASPART (*BKC) 100 UNITS/ML SUB-Q (11:33)
[2022-01-05] MEDS: INSULIN ASPART (*BKC) 100 UNITS/ML 10 UNITS SUB-Q (11:35)
--- NOTE | 2022-01-05 12:56 | PM.IMPN ---
Subjective Date/time seen: 01/05/22 12:56 Objective Data Vital Signs Vital Signs: Vital Signs - 24 hr 01/04/22 13:30 01/04/22 17:30 01/04/22 19:31 Temperature 97 F L 97 F L Pulse Rate 76 85 80 Respiratory Rate 20 20 Blood Pressure 135/67 137/61 Pulse Oximetry 94 99 01/04/22 21:08 01/05/22 01:08 01/05/22 06:00 Temperature 97.6 F 98.7 F 97.7 F Pulse Rate 70 72 78 Respiratory Rate 18 16 16 Blood Pressure 135/64 121/66 132/59 L Pulse Oximetry 99 96 95 01/05/22 10:00 Temperature 97.6 F Pulse Rate 67 Respiratory Rate 16 Blood Pressure 120/65 Pulse Oximetry 94 Intake/Output Intake/Output: Intake & Output 01/02/22 01/03/22 01/04/22 01/05/22 23:59 23:59 23:59 23:59 Intake Total 3980 3080 3110 1542 Output Total 1600 Balance 2380 3080 3110 1542 Meds/Results Medications: Active Medications Generic Name Dose Route Start Last Admin Trade Name Freq PRN Reason Stop Dose Admin Acetaminophen 500 mg 12/27/21 22:26 12/31/21 14:48 Acetaminophen 500 Mg Tablet PO 500 mg DAILY PRN Administration Pain Rated 1-3 Hydrocodone Bitart/Acetaminophen 1 tab 01/01/22 15:35 01/04/22 15:19 Hydrocodone/Acetaminophen (*Crx) 5-325 Mg Tablet PO 1 tab Q4H PRN Administration Pain Rated 4-6 Amiodarone HCl 200 mg 12/28/21 08:00 01/05/22 08:32 Amiodarone Hcl 200 Mg Tablet PO 200 mg DAILY@0800 LUCERO Administration Aspirin 81 mg 12/28/21 08:00 01/05/22 08:32 Aspirin 81 Mg Chewable Tablet PO 81 mg DAILY@0800 LUCERO Administration Atorvastatin Calcium 80 mg 12/28/21 09:00 01/05/22 08:32 Atorvastatin 40 Mg Tablet PO 80 mg DAILY LUCERO Administration Calcium Carbonate 200 mg 01/03/22 12:53 Calcium Carbonate (Tums) 500 Mg (200 Mg Elemental) PO Q6H PRN Indigestion Dextrose 12.5 gm 12/28/21 00:20 Dextrose 50% 25 Gm/50 Ml Syringe IV PUSH PRN PRN Hypoglycemia Protocol Dicyclomine HCl 20 mg 01/03/22 12:56 01/03/22 13:28 Dicyclomine Hcl Inj 20 Mg/2 Ml Vial IM 20 mg Q6H PRN Administration Abdominal Cramping Famotidine 20 mg 12/28/21 09:00 01/05/22 08:32 Famotidine 20 Mg Tablet PO 20 mg BID LUCERO Administration Gabapentin 100 mg 12/28/21 09:00 01/05/22 11:47 Gabapentin 100 Mg Capsule PO 100 mg TID LUCERO Administration Glucagon 1 mg 12/28/21 00:20 Glucagon For Inj 1 Mg Vial IM PRN PRN Hypoglycemia Protocol Glucose 15 gm 12/28/21 00:20 Glucose Oral Gel 15 Gm Of Glucse In 37.5 Gm Tube PO PRN PRN Hypoglycemia Protocol Heparin Sodium (Porcine) 7,000 units 12/29/21 08:00 12/30/21 17:32 Heparin Sodium 5,000 Units/Ml Vial IV PUSH 7,000 units PRN PRN Administration aPTT less than 55 seconds Heparin Sodium (Porcine) 3,500 units 12/29/21 08:00 01/04/22 11:11 Heparin Sodium 5,000 Units/Ml Vial IV PUSH 3,500 units PRN PRN Administration aPTT 55 - 70 seconds Dextrose 1,000 mls @ 150 mls/hr 12/28/21 00:20 Dextrose 5% 1,000 Ml IVPB PRN PRN Hypoglycemia Protocol Heparin Sodium/Dextrose 25,000 units in 250 mls @ 28 mls/hr 12/29/21 08:00 01/05/22 07:21 Heparin Sodium/D5w 100 Units/Ml IV CONT 2,800 units/hr .Q8H56M LUCERO 28 mls/hr Titration Protocol 2,800 UNITS/HR Insulin Aspart 4 - 8 units 12/28/21 08:00 01/05/22 11:33 Insulin Aspart (*Bkc) 100 Units/Ml SUB-Q 6 units TIDWM LUCERO Administration Protocol Insulin Aspart 10 units 12/31/21 17:00 01/05/22 11:35 Insulin Aspart (*Bkc) 100 Units/Ml SUB-Q 10 units TIDWM LUCERO Administration Insulin Glargine 20 units 01/01/22 21:00 01/04/22 19:28 Insulin Glargine (*Bkc) 100 Units/Ml SUB-Q 20 units HS LUCERO Administration Methocarbamol 750 mg 12/27/21 22:26 01/04/22 08:32 Methocarbamol 750 Mg Tablet PO 750 mg TID PRN Administration Muscle Pain Metoprolol Tartrate 12.5 mg 12/28/21 09:00 01/05/22 08:32 Met
[2022-01-05 13:18] LABS: Partial Thromboplastin Time 82.4 SECONDS (22.3-36.8)
[2022-01-05 14:00] VITALS: BP 124/64; PULSE 69; RESP 16; TEMP 36.5; O2SAT 95
[2022-01-05] MEDS: APIXABAN 5 MG TABLET PO (15:40)
--- NOTE | 2022-01-14 16:17 | PM.DS ---
DS: Admitting Diagnosis Discharge Date 01/05/22 Admitting Diagnosis chest pain DS: Discharge Diagnosis Discharge Diagnosis (1) Acute thrombosis of splenic vein: Code(s): I82.890 - Acute embolism and thrombosis of other specified veins Status: Acute (2) Acute pancreatitis: Code(s): K85.90 - Acute pancreatitis without necrosis or infection, unspecified Status: Acute (3) JOYA (acute kidney injury): Code(s): N17.9 - Acute kidney failure, unspecified Status: Acute (4) Hypoxia: Code(s): R09.02 - Hypoxemia Status: Acute (5) Atypical chest pain: Code(s): R07.89 - Other chest pain Status: Acute (6) Diabetes mellitus with hyperglycemia: Code(s): E11.65 - Type 2 diabetes mellitus with hyperglycemia Status: Acute (7) Hypertriglyceridemia: Code(s): E78.1 - Pure hyperglyceridemia Status: Acute (8) Hyponatremia: Code(s): E87.1 - Hypo-osmolality and hyponatremia Status: Acute (9) Hypomagnesemia: Code(s): E83.42 - Hypomagnesemia Status: Acute (10) Hypokalemia: Code(s): E87.6 - Hypokalemia Status: Acute DS: Summary Hospital Course Reason for hospitalization: Chief Complaint: Chest pain. Narrative: This is a 61-year-old male with past medical history significant for type 2 diabetes mellitus, coronary artery disease, obesity, hypertension, dyslipidemia, hepatic steatosis.? Patient presents to the emergency room due to pain localized to the precordial area and epigastric area nonradiating pain has been present since the day before and into today is day patient states that he has been his usual state of health prior to these denies any shortness of breath, cough, sputum production, fevers, rigors, chills, near-syncope, syncope, lightheadedness, dizziness, leg swelling no calves pain, no nausea, no vomiting, no diarrhea.? Preliminary workup was significant for an elevated lipase level and glucose in the 400's, a CT of abdomen and pelvis was significant for acute splenic vein thrombosis and pancreatitis.? Patient is been admitted for further evaluation, management and treatment. Hospital Course: ?? -non-occlusive, noted on admission CT. He was reportedly compliant with his Eliquis prior to admission. -Hematology, Dr. Kearney consulted and appreciate recommendations. -12/30/21 Abdominal pain is improving. On heparin drip. Per Hem/Onc continue heparin drip, transition to Lovenox 1 mg/kg BID x 14 days upon discharge and then follow up to start Xarelto. -12/31/21 unchanged from yesterday. No s/s bleeding. Transition to lovenox at discharge per Hematology recommendations. -01/01 unchanged. Continue heparin drip per hematology until discharge, then start SQ lovenox BID x 2 weeks. Patient will need lovenox admin instructions prior to dc. -01/02 Continues to have LUQ abdominal pain.? Patient is tolerating his full liquid diet with some pain, and is hesitant to advance his diet at this point.? On heparin drip.? Lovenox on D/C x 2 weeks until f/u with Dr. Kearney in office.? -01/03 continued pain. Is still on heparin drip. Discharge plan remains unchanged. -01/04 - Patient ate 100% of his low fat meal. He continues to have pain and is fearful of leaving while he still has pain. today patient clinically stable pain is improved seen by GI, recommended strict low-fat diet and continue the lipid-lowering treatment, will discharge the patient today Time Spent with Patient Time attestation: Total time spent providing and/or coordinating discharge services: Exam Narrative: morbidly obese Patient is comfortable, NAD HEENT: eyes are clear and none icteric LUNGS:CTA HEART: RR S1S2 ABD: BS+, Soft and nontender Lower extremities: no edema SKIN: nonjaundiced Neuro: grossly intact. Discharge Plan Discharge Attending physician on discharge: Tim Vigil Consulting providers: Drew Wallis ; Tano Arguello ; Jimenez Kearney
== END 2022-01-05 16:05 | disposition home or self-care (01) | DRG 282 ==
LOC: ANHED 18:42 → ANHIMU 18:53 → ANH2MED 12-29 17:41
PROVIDERS: Internal Medicine; Internal Medicine Gastroenterology; Internal Medicine Nephrology; Nurse Practitioner; Nurse Practitioner Family; Physician Assistant; Student in an Organized Health Care Education/Training Program; Admitting Provider Family Medicine; Emergency Provider Emergency Medicine; PCP Family Medicine; Visit Provider Student in an Organized Health Care Education/Training Program
DX: N17.9 Acute kidney failure, unspecified; Z68.41 Body mass index [BMI] 40.0-44.9, adult; E66.9 Obesity, unspecified; I48.91 Unspecified atrial fibrillation; R07.89 Other chest pain; I82.890 Acute embolism and thrombosis of other specified veins; K85.90 Acute pancreatitis without necrosis or infection, unspecified; E87.6 Hypokalemia; Z20.822 Contact with and (suspected) exposure to COVID-19; E11.65 Type 2 diabetes mellitus with hyperglycemia; I25.10 Atherosclerotic heart disease of native coronary artery without angina pectoris; E78.1 Pure hyperglyceridemia; E78.5 Hyperlipidemia, unspecified; E83.42 Hypomagnesemia; E87.1 Hypo-osmolality and hyponatremia; I10 Essential (primary) hypertension; R09.02 Hypoxemia; K76.0 Fatty (change of) liver, not elsewhere classified; I25.2 Old myocardial infarction; Z79.01 Long term (current) use of anticoagulants; Z79.82 Long term (current) use of aspirin; Z79.84 Long term (current) use of oral hypoglycemic drugs; Z87.891 Personal history of nicotine dependence; Z91.11 Patient's noncompliance with dietary regimen; Z95.1 Presence of aortocoronary bypass graft; Z95.5 Presence of coronary angioplasty implant and graft
CPT/HCPCS: 36415; 71045; 71046; 71260; 74177; 76705; 78580; 80048; 80053; 80061; 80069; 81001; 81050; 82436; 82533; 82550; 82570; 82948; 83036; 83605; 83690; 83735; 83880; 83930; 83935; 84100; 84132; 84153; 84155; 84156; 84165; 84166; 84295; 84300; 84439; 84443; 84480; 84484; 85025; 85027; 85610; 85730; 86334; 86335; 87040; 93005; 93970; 96361; 96365; 96366; 96374; 96375; 96376; 99285; A9270; A9540; C9803; G0378; G0379; J0500; J0834; J1644; J1815; J1940; J2270; J2405; J2543; J3475; J3480; J7030; J7040; J7120; Q9967; U0003; U0005

== ENCOUNTER 2023-05-12 11:07 | Outpatient (CLI) | payer MEDICARE, MEDICAID, SELFPAY ==
--- NOTE | ~2023-05-12 | US_ITS ---
Renal-Bladder ultrasound Clinical History: Abnormal blood chemistry findings Technique: Real-time sonographic imaging of the kidneys and urinary bladder was performed. Findings: The right kidney measures 10.8 cm in length and the left kidney measures 11.2 cm. There is no hydronephrosis or renal calculus identified. Renal cortical echogenicity is within normal limits. No renal mass lesion is identified. The urinary bladder is partially distended at the time of this exam. No intraluminal echoes are ident ified. No abnormal wall thickening is seen. Impression: Unremarkable ultrasound of the kidneys and urinary bladder. Reviewed, dictated and finalized at location M. Impression: Unremarkable ultrasound of the kidneys and urinary bladder.
[2023-05-12 12:08] LABS: Alanine Aminotransferase 32 U/L (6-50); Albumin Level 4.3 g/dL (3.5-5.1); Alkaline Phosphatase 54 U/L (38-126); Anion Gap 12 mmol/L (8-16); Aspartate Amino Transferase 22 U/L (17-59); Bilirubin,Total 0.7 mg/dL (0.2-1.3); Blood Urea Nitrogen 31 mg/dL (9-20); Calcium 9.3 mg/dL (8.4-10.2); Carbon Dioxide 27 mmol/L (22-30); Chloride 90 mmol/L (98-107); Estimated Glomerular Filt Rate > 60; Glucose 372 mg/dL (65-110); Potassium 3.3 mmol/L (3.4-5.0); Sodium 129 mmol/L (137-145)
[2023-05-12 12:09] LABS: Creatinine Urine 19.4 mg/dL; Total Protein Urine Random 14 mg/dL; Ur Ttl Prot Creatinine Ratio 0.72 mg/mg (0-0.20)
[2023-05-12 12:09] LABS: Phosphorus 3.3 mg/dL (2.5-4.5)
[2023-05-12 12:14] LABS: Complement C3 216 mg/dL (88-165)
[2023-05-12 12:25] LABS: Hemoglobin A1C 10.5 % (<5.7)
[2023-05-15 22:49] LABS: Albumin 3.9 g/dL (3.8-4.8); Alpha 1 Globulin 0.4 g/dL (0.2-0.3); Alpha 2 Globulin 0.9 g/dL (0.5-0.9); Beta 1 Globulin 0.6 g/dL (0.4-0.6); Gamma Globulin 0.9 g/dL (0.8-1.7); Protein, Total 7.1 g/dL (6.1-8.1)
[2023-05-17 12:55] LABS: Anti Glomerular Basement Memb <1.0 AI (<1.0)
[2023-05-17 22:31] LABS: ANCA Screen Negative (Negative)
[2023-05-18 14:16] LABS: Creatinine, Random Urine 21 mg/dL (20-320); Total Protein/Creatinine Ratio 238 mg/g creat (25-148)
== END 2023-05-12 11:08 | disposition home or self-care (01) ==
PROVIDERS: PCP Nurse Practitioner Family; Visit Provider Internal Medicine Nephrology
DX: R79.89 Other specified abnormal findings of blood chemistry (principal); I10 Essential (primary) hypertension; E87.6 Hypokalemia; E11.65 Type 2 diabetes mellitus with hyperglycemia
CPT/HCPCS: 36415; 76775; 80053; 82570; 83036; 83520; 84100; 84155; 84156; 84165; 84166; 86036; 86038; 86160; 86225

== ENCOUNTER 2023-07-23 13:04 | Outpatient (CLI) | payer MEDICARE, MEDICAID, SELFPAY ==
[2023-07-23 14:38] LABS: Anion Gap 11 mmol/L (8-16); Blood Urea Nitrogen 27 mg/dL (9-20); Calcium 9.1 mg/dL (8.4-10.2); Carbon Dioxide 31 mmol/L (22-30); Chloride 93 mmol/L (98-107); Estimated Glomerular Filt Rate > 60; Glucose 195 mg/dL (65-110); Potassium 3.5 mmol/L (3.4-5.0); Sodium 135 mmol/L (137-145)
== END 2023-07-23 13:05 | disposition home or self-care (01) ==
LOC: ANHLAB 13:07
PROVIDERS: PCP Nurse Practitioner Family; Visit Provider Internal Medicine Cardiovascular Disease
DX: I25.118 Atherosclerotic heart disease of native coronary artery with other forms of angina pectoris (principal)
CPT/HCPCS: 36415; 80048

== ENCOUNTER 2024-11-06 00:36 | Day surgery (SDC) | payer MEDICARE, MEDICAID, SELFPAY ==
[2024-11-03 16:44] VITALS: BMI 44.4
[2024-11-06] VITALS (10 sets, daily range): BP systolic 139–199; BP diastolic 58–98; PULSE 73–99; RESP 12–20; TEMP 36.7; O2SAT 92–95; BMI 39.6
--- OUTSIDE RECORDS SUMMARY | 2024-11-06 00:43 | XMS_ITS | Encounter Summary ---
Author Organization [facility] Healthcare Address [address] [place] [address] Care Team Providers Care Elementary Education Teacher Name Role Phone Adria Houser NP Primary Care Provider [phone] Encounter Details Date Type Department Care Team (Late st Contact Info) Description 10/03/2024 Results Follow-Up [facility] Medical Group Cardiology [address] [place] [address] Richmond May MD [facility] [address] Social History Tobacco Use Types Packs/Day Years Used Date Smoking Tobacco: Former Cigarettes Q uit: 09/24/2020 Smokeless Tobacco: Never Comments:Smoking History Pac ks/day: 1.5 Packs Alcohol Use Standard Drinks/Week Comments Yes 14 (1 standard drink = 0.6 oz pu re alcohol) AUDIT-C Answer Date Recorded Q1: How often do you have a drink containing alc ohol? 2-4 times a month 12/23/2020 Q2: How many drinks containi ng alcohol do you have on a typical day when you are drinking? 1 or 2 12/23/2020 Q3: How often do you have si x or more drinks on one occasion? Never 12/23/2020 Sex and Gender Information Value Date Recorded Sex Assigned at Not on file Legal Sex Male 4:54 PM INSURANCE CONSULTANT Gender Identity Not on file Sexual Orientation Not on file documented as of this encounter Plan of Treatment Not on file documented as of this encounter Visit Diagnoses Not on filedocumented in this encounter Care Teams Elementary Education Teacher Relationship Specialty Start Date End Date Adria Houser, ANSWERING SERVICE AGENT [address] [place] [address] PCP - General Family Medicine 06/25/23 documented as of this encounter
--- OUTSIDE RECORDS SUMMARY | 2024-11-06 00:44 | XMS_ITS | Encounter Summary ---
Author Organization [facility] Healthcare Address [address] [place] [address] Care Team Providers Care Coal Screener Name Role Phone Adria Houser NP Primary Care Provider [phone] Encounter Details Date Type Department Care Team (Late st Contact Info) Description 10/19/2024 Results Follow-Up [facility] Medical Group Cardiology [address] [place] [address] Richmond May MD [facility] [address] Social History Tobacco Use Types [...] on file Legal Sex Male 4:54 PM SULFUR BURNER Gender Identity Not on file Sexual Orientation Not on file documented as of this encounter Plan of Treatment Not on file documented as of this encounter Visit Diagnoses Not on filedocumented in this encounter Care Teams Coal Screener Relationship Specialty Start Date End Date Adria Houser, POSITION CLERK [address] [place] [address] PCP - General Family Medicine 06/25/23 documented as of this encounter
--- OUTSIDE RECORDS SUMMARY | 2024-11-06 00:44 | XMS_ITS | Clinical Summary ---
Author Organization [facility] Address [facility] [place] [address] Care Team Providers Care Octave Board Racker Name Role Phone Unavailable Primary Care Provider Unavailabl e Social History Tobacco Use Types Packs/Day Years Used Date Smoking Tobacco: Never Assessed Sex and Gender Information Value Date Recorded Sex Assigned at Not on file Legal Sex Male 5:09 PM CDT Gender Identity Not on file Sexual Orientation Not on file Plan of Treatment Health Maintenance Due Date Last Done Comments Colorectal Cancer Screening Colonoscopy (10 Years) 1962 Annual Physical 1965 Hepatitis C 1980 DTaP, Tdap and Td Vaccines ( 1 - Tdap) 1981 Zoster Vaccines (1 of 2) 2012 COVID-19 Vaccine ( - 2023-2 5 season) 2024 Influenza Adult (#1) 2024 RSV Immunization or 60+ Years (1 - 1-dose 75+ series) 2037 Meningococcal B Vaccine Aged Out No l onger eligible based on patient's age to complete this topic Meningococcal Vaccine Aged Out No lenin nya eligible based on patient's age to complete this topic Pneumococcal Vaccine: Pediat rics (0 to 5 Years) and At-Risk Patients (6 to 64 Years) Aged Out No longer eligible b ased on patient's age to complete this topic RSV Immunizations Under 20 Months Aged Out No longer eligible based on patient's age to complete this topic
--- OUTSIDE RECORDS SUMMARY | 2024-11-06 00:44 | XMS_ITS | Clinical Summary ---
Author Organization [facility] [address] Address [address] [place] [address] Care Team Providers Care Delivery Driver Assistant Name Role Phone Adria Houser NP Primary Care Provider [phone] Allergies No known active allergies Medications cholecalciferol (Vitamin D3) 1,000 unit capsule Take 1 capsule (1,000 Units total) by mouth daily 90 capsule 021 Active acetaminophen 500 mg capsule Take 2 capsules (1,000 mg total) by mouth every 6 (six) hours 30 tablet Active furosemide (LASIX) 40 mg tablet Take 1 tablet (40 mg total) by mouth 2 (two) times a day 60 tablet 11 Active Additional Information Patient taking differently:40 mg oralDaily, Reported on 06/25/2023 methocarbamoL (ROBAXIN) 750 mg tablet Take 1 tablet (750 mg total) by mouth 3 (three) times a day as needed for muscle spasms 30 tablet Active albuterol HFA (PROVENTIL HFA,VENTOLIN HFA,PROAIR HFA) 90 mcg/actuation inhalerIndications: Exercise-Induced Bronchospasm Prevention Inhale 2 puffs every 4 (four) hours as needed for wheezing 1 Inhaler Active Additional Information Patient not taking.Reported on 08/16/2024 aspirin 81 mg enteric coated tablet Take 1 tablet (81 mg total) by mouth daily 90 tablet 021 Active senna-docusate (PERICOLACE) 8.6-50 mgIndications:const ipation Take 1 tablet by mouth 2 (two) times a day as needed for constipation 30 tablet Active blood glucose diagnostic (glucose blood) strip Use as directed up to four times a day. 100 each 1 Active blood glucose strip-disp meter kit Use as directed. 1 kit Active docusate sodium (COLACE) 100 mg capsule Take 1 capsule (100 mg total) by mouth 2 (two) times a day 60 capsule 3 Active gabapentin (NEURONTIN) 100 mg capsule TAKE 1 CAPSULE BY MOUTH THREE TIMES A DAY 90 capsule 11 Active fenofibrate nanocrystallized (TRICOR) 145 mg tablet TAKE 1 TABLET BY MOUTH EVERY DAY 90 tablet Active atorvastatin (LIPITOR) 80 mg tablet TAKE 1 TABLET BY MOUTH EVERY DAY AT NIGHT 90 tablet 3 Active carvediloL (COREG) 6.25 mg tabletIndications:C oronary artery disease of [place] artery of [place] heart with stable angina pectoris TAKE 1 TABLET BY MOUTH TWICE A DAY WITH MEALS 180 tablet 3 Active Trulicity 1.5 mg/0.5 mL pen injector Active glimepiride (AMARYL) 4 mg tablet glimepiride 4 mg tablet TAKE 1 TABLET BY MOUTH EVERY DAY Active Klor-Con M20 20 mEq CR tablet Klor-Con M20 mEq tablet,extende d release TAKE 1 TABLET BY MOUTH EVERY DAY Active traZODone (DESYREL) 50 mg tablet 2 tablets (100 mg total) Active zolpidem (AMBIEN) 10 mg tablet zolpidem 10 mg tablet Active Januvia 50 mg tablet Active famotidine (PEPCID) 20 mg tablet TAKE 1 TABLET TWICE DAILY 180 tablet 3 Active Repatha SureClick 140 mg/mL pen injectorIndications :Hyperlipidemia LDL goal <70 INJECT 140MG UNDER THE SKIN EVERY 2 WEEKS 6 mL 3 025 Active Eliquis 5 mg tablet TAKE 1 TABLET EVERY 12 HOURS 180 tablet 3 Active Eliquis 5 mg tablet TAKE 1 TABLET EVERY 12 HOURS 180 tablet 3 024 2024 Discontinued Repatha SureClick 140 mg/mL pen injectorIndications :Hyperlipidemia LDL goal <70 INJECT 140MG UNDER THE SKIN EVERY 2 WEEKS 6 mL 024 2024 Discontinued Active Problems Problem Noted Date Diagnosed Date Morbid (severe) obesity due to excess calories 0 08/14/2022 Body mass index 40.0-44.9, adult (CMS/HCC) 08/14 Postoperative atrial fibrillation 10/21/2021 Diabetic polyneuropathy 01/03/2021 Coronary artery disease of n ative heart with stable angina pectoris 12/05/2020 Overview (12/05/2020): Added automatically from request for surgery [id number] PND (paroxysmal nocturnal dyspnea) 10/09/2020 Hypersomnolence 10/09/2020 Chest pain 10/09/2020 TAI (dyspnea on exertion) 10/09/2020 Hypertriglyceridemia 07/27/2019 Bruit of right carotid artery 05/10/2018 Anxiety 05/20/2017 Claudication 05/20/2017 Hyperlipidemia LDL goal <70 05/20/2017 Tobacco abuse 05/20/2017 Benign essential hypertension 06/14/2014 Overview (11/12/2016): Benign essential hypertension Atherosclerosis of coronary artery 06/14/2014 Overview (11/12/2016): Coronary atherosclerosis Encounters Date Type Department Care Team Description 10/19/2024 Telephone [facility] Cardiology [address] [place] [address] [address] [place] [phone] Ravin Mendez MD 10/19/2024 Results Follow-Up [facility] Cardiology [address] [place] [address] [address] [place] [phone] Ravin Mendez MD 10/18/2024 11:15 AM CDT Ancillary Procedure [facility] Cardiology [address] [place] [address] [address] [place] [phone] Unstable angina pectoris (HCC); TAI (dyspnea on exertion) 10/03/2024 Telephone [facility] Cardiology [address] [place] [address] [address] [place] [phone] Ravin Mendez MD 10/03/2024 Results Follow-Up [facility] Medical [facility] Cardiology [address] [place] [phone] Ravin Mendez MD 10/02/2024 1:00 PM TSO Ancillary Procedure [facility] Cardiology [address] [place] [address] [address] [place] [phone] Benign essential hypertension; Coronary artery disease of [place] artery of [place] heart with stable angina pectoris 08/17/2024 Orders Only [facility] Cardiology [address] [place] [address] [address] [place] [phone] ProviderAta MD 08/16/2024 3:00 PM TSO Office Visit [facility] Cardiology [address] [place] [address] [address] [place] [phone] Ravin Mendez MD Benign essential hypertension (Primary Dx); Coronary artery disease of [place] artery of [place] heart with stable angina pectoris; Hyperlipidemia LDL goal <70; Postoperative atrial fibrillation (HCC); Claudication from Last 3 Months Surgical History Surgery Date Site/Laterality Comments CARDIAC STENT PLACEMENT 6 stents CORONARY ARTERY BYPASS GRAFT 12/23/2020 Medical History Medical History Date Comments Coronary artery disease Hypertension Hyperlipidemia Myocardial infarction (HCC) X 3 Claudication right Hypertriglyceridemia Chest pain GERD (gastroesophageal reflux disease) occasional Family History Medical History Relation Name Comments Coronary artery disease Father Sheri nary artery disease; Cause of : Coronary artery disease COPD Mother brain tumor Mother Coronary artery disease Paternal Grandmother Diabetes Sister Relation Name Status Comments Father (Age 56) Mother Alive Paternal Grandmother Sister Social History Tobacco Use Types Packs/Day Years Used Date Smoking Tobacco: Former Cigarettes Q uit: 09/24/2020 Smokeless Tobacco: Never Tobacco Cessation:Counseling Given: Not Answered Comments:Smoking History Packs/day: 1.5 Packs Alcohol Use Standard Drinks/Week Comments [...] on file Legal Sex Male 4:54 PM TSO Gender Identity Not on file Sexual Orientation Not on file Obstetrics History Last Filed Vital Signs Vital Sign Reading Time Taken Comments Blood Pressure 134/80 08/16/2024 4:55 PM TSO Pulse 82 08/16/2024 3:38 PM TSO Temperature 36.5 C (97.7 F) 02/05/2021 4:11 PM CDT Respiratory Rate 14 05/15/2021 2:05 PM CDT Oxygen Saturation 95% 08/16/2024 3:38 PM TSO Inhaled Oxygen Concentration - - Weight 113.9 kg (251 lb) 10/18/2024 11:31 AM CDT Height 167.6 cm (5' 6 ) 08/16/2024 3:38 PM TSO Body Mass Index 40.51 08/16/2024 3:38 PM TSO Plan of Treatment Health Maintenance Due Date Last Done Comments Albumin Creatinine Ratio, Urine 1960 Colon Cancer Screening-Colonoscopy 1960 Depression Screening 1960 Hepatitis C Screening 1960 Prostate Cancer Screening-PSA 1962 Dilated Eye Exam 1962 Foot Exam 1962 DTaP/Tdap/Td Vaccine (1 - Tdap) 1973 Hepatitis B Screening 1980 Regular Well Visit/Exam 18-64 1980 Pneumococcal vaccine <65 (1 of 2 - PCV) 1981 Zoster Vaccine (1 of 2) 2012 Hemoglobin A1C 06/26/2021 12/24/2020 Covid-19 Vaccine (3 - 2023-2 5 season) 2024 03/16/2021, 02/23/2021 eGFR 07/23/2024 07/23/2023, 01/07, 01/13/2021, Additional history exists Lipid Panel 07/12/2025 07/12/2024, 11/07, 09/18/2021, Additional history exists Influenza Vaccine Completed 07/12/2024, 06/25/2022 Procedures Procedure Name Priority Date/Time Associated Diagnosis Comments NM MPI SPECT (REST AND/OR STRESS) MULTIPLE STUDIES Schedule Routine, Read Routine (OP Routine) 10/18/2024 6:42 AM CDT Unstable angina pectoris (HCC) TAI (dyspnea on exertion) TRANSTHORACIC ECHO (TTE) COMPLETE W DOPPLER/CF Routine 10/02/2024 1:37 PM TSO Benign essential hypertension Coronary artery disease of [place] artery of [place] heart with stable angina pectoris LIPID PANEL Routine 07/12/2024 9:01 AM TSO BASIC METABOLIC PANEL Routine 07/23/2023 Coronary artery disease of [place] artery of [place] heart with stable angina pectoris HEMOGLOBIN A1C Add-On 12/24/2020 3:50 AM CDT from Last 3 Months or Most Recently Relevant to Health Maintenance Results * NM MPI SPECT (Rest and/or Stress) Multiple Studies (10/18/2024 6:42 AM CDT) Anatomical Region Laterality Modality Body N/A Nuclear Medicine 10/18/2024 6:42 AM CDT Narrative 10/18/2024 6:[address] [facility] Cardiology [address] [facility] [address], [place] [address] [address] [facility] [address], [place] [address] P:[phone] P:[phone] MPI Imaging Report Patient Name: BRITTANY SALGADO E : 1960 Study Date: 10/18/2024 6:42:29 AM Gender: M Tech: BETHEL HARRISON Location: [facility] Provider: RAVIN MENDEZ Height(Cm): 167.6 BSA: Weight(Kg): 114 BMI: 40.58 Order Provider: RAVIN MENDEZ PHYSICIAN: Referring Physician: Adria Houser NP. HCG Physician: Oscar Mendez M.D. Interpreting Physician: Oscar Mendez M.D. Stress Supervision: Oscar Mendez M.D. PROCEDURES: Pharmacologic SPECT Report: Myocardial perfusion imaging with Tc99M Sestamibi SPECT at rest and stress post regadenoson (Lexiscan) infusion. INDICATIONS: Chest Pain, Hypertension, Diabetes, Family Hx CAD, High Cholesterol, Former Smoker, I20.0 Unstable angina, and R06.09 Other forms of dyspnea. FINDINGS: Procedural Findings: One day rest/stress was used. Tc99m Sestamibi injected IV at rest was 12.8 millicuries 37.8 millicuries of Tc99M Sestamibi injected IV during Lexiscan stress Lexiscan 0.4mg administered IV over 10 seconds. Patient had no symptoms during stress test. Baseline heart rate was 79 BPM Maximum Heart Rate Achieved was: 94 BPM Baseline blood pressure was 136/82 mmHg Post Stress Blood Pressure was 142/84 mmHg Termination: Protocol complete. Resting ECG: Normal sinus rhythm. Cannot r/o IMI - age uncertain. Cannot r/o anteroseptal infarct - age uncertain. Cannot r/o lateral infarct - age uncertain. PAC. Arrhythmia: Occasional PVCs. Occasional APCs. Perfusion Findings: Abnormal perfusion imaging - see below. Technical quality of study is excellent. Prone imaging was performed. Left ventricle cavity size at rest is mildly enlarged. Left ventricle cavity size with stress is unchanged. A TID of 1.01 was automatically calculated. defect 1: Size is large. Severity is moderate to severe in intensity. Location of defect is in the apical anterior segment, apical septal segment, apical inferior segment, apical lateral segment and apex. Reversibility is not present, defect is fixed. Type of defect is infarction. defect 2: Size is medium. Severity is mild to moderate in intensity. Location of defect is in the basal inferior segment and mid inferior segment. Reversibility is full. Type of defect is ischemia. LV Function: Left ventricular ejection fraction is 31 %. There is severe LV dysfunction. PostStress LV Wall Motion: There is hypokinesis in the basal inferoseptal segment, basal inferior segment, mid inferoseptal segment, mid inferior segment, apical anterior segment, apical septal segment, apical inferior segment and apical lateral segment. There is dyskinesis in the apical segment. CONCLUSIONS: Left ventricular ejection fraction is 31 %. There is severe LV dysfunction. There is hypokinesis in the basal inferoseptal segment, basal inferior segment, mid inferoseptal segment, mid inferior segment, apical anterior segment, apical septal segment, apical inferior segment and apical lateral segment. There is dyskinesis in the apical segment. Size is large. Severity is moderate to severe in intensity. Location of defect is in the apical anterior segment, apical septal segment, apical inferior segment, apical lateral segment and apex. Reversibility is not present, defect is fixed. Type of defect is infarction. Size is medium. Severity is mild to moderate in intensity. Location of defect is in the basal inferior segment and mid inferior segment. Reversibility is full. Type of defect is ischemia. Myocardial perfusion imaging is abnormal. Negative EKG portion of stress test. Electronically Signed By: Ravin Mendez MD 10/18/2024 5:39:24 PM CDT Electronically Signed By: Ravin Mendez MD 10/18/2024 5:39:24 PM CDT Procedure Note Ravin Mendez MD - 10/18/2024 [facility] Cardiology [address] [facility] [address], [place] [address] [address] [facility] [address], [place] [address] P:[phone] P:[phone] MPI Imaging Report Patient Name: BRITTANY SALGADO E : 1960 Study Date: 10/18/2024 6:42:29 AM Gender: M Tech: BETHEL HARRISON Location: [facility] Provider: RAVIN MENDEZ Height(Cm): 167.6 BSA: Weight(Kg): 114 BMI: 40.58 Order Provider: RAVIN MENDEZ PHYSICIAN: Referring Physician: Adria Houser NP. HCG Physician: Oscar Mendez M.D. Interpreting Physician: Oscar Mendez M.D. Stress Supervision: Oscar Mendez M.D. PROCEDURES: Pharmacologic SPECT Report: Myocardial perfusion imaging with Tc99M Sestamibi SPECT at rest and stresspost regadenoson (Lexiscan) infusion. INDICATIONS: Chest Pain, Hypertension, Diabetes, Family Hx CAD, High Cholesterol,Former Smoker, I20.0 Unstable angina, and R06.09 Other forms of dyspnea. FINDINGS: Procedural Findings: One day rest/stress was used. Tc99m Sestamibi injected IV at rest was 12.8 millicuries 37.8 millicuries of Tc99M Sestamibi injected IV during Lexiscan stress Lexiscan 0.4mg administered IV over 10 seconds. Patient had no symptoms during stress test. Baseline heart rate was 79 BPM Maximum Heart Rate Achieved was: 94 BPM Baseline blood pressure was 136/82 mmHg Post Stress Blood Pressure was 142/84 mmHg Termination: Protocol complete. Resting ECG: Normal sinus rhythm. Cannot r/o IMI - age uncertain. Cannot r/oanteroseptal infarct - age uncertain. Cannot r/o lateral infarct - age uncertain. PAC. Arrhythmia: Occasional PVCs. Occasional APCs. Perfusion Findings: Abnormal perfusion imaging - see below. Technical quality of study isexcellent. Prone imaging was performed. Left ventricle cavity size at rest is mildlyenlarged. Left ventricle cavity size with stress is unchanged. A TID of 1.01 wasautomatically calculated. defect 1: Size is large. Severity is moderate to severe in intensity. Location ofdefect is in the apical anterior segment, apical septal segment, apical inferior segment,apical lateral segment and apex. Reversibility is not present, defect is fixed. Type ofdefect is infarction. defect 2: Size is medium. Severity is mild to moderate in intensity. Location ofdefect is in the basal inferior segment and mid inferior segment. Reversibility is full.Type of defect is ischemia. LV Function: Left ventricular ejection fraction is 31 %. There is severe LVdysfunction. PostStress LV Wall Motion: There is hypokinesis in the basal inferoseptal segment, basal inferiorsegment, mid inferoseptal segment, mid inferior segment, apical anterior segment,apical septal segment, apical inferior segment and apical lateral segment. There isdyskinesis in the apical segment. CONCLUSIONS: Left ventricular ejection fraction is 31 %. There is severe LVdysfunction. There is hypokinesis in the basal inferoseptal segment, basal inferiorsegment, mid inferoseptal segment, mid inferior segment, apical anterior segment,apical septal segment, apical inferior segment and apical lateral segment. There isdyskinesis in the apical segment. Size is large. Severity is moderate to severe in intensity. Location ofdefect is in the apical anterior segment, apical septal segment, apical inferior segment,apical lateral segment and apex. Reversibility is not present, defect is fixed. Type ofdefect is infarction. Size is medium. Severity is mild to moderate in intensity. Location ofdefect is in the basal inferior segment and mid inferior segment. Reversibility is full.Type of defect is ischemia. Myocardial perfusion imaging is abnormal. Negative EKG portion of stress test. Electronically Signed By: Ravin Mendez MD 10/18/2024 5:39:24 PM CDT Electronically Signed By: Ravin Mendez MD 10/18/2024 5:39:24 PM CDT us Ravin Mendez MD IMG NM PROCEDURES Final R esult * TRANSTHORACIC ECHO (TTE) COMPLETE W DOPPLER/CF W CONTRAST (10/02/2024 1:37 PM TSO) LV EF 40 % CONS SCIMAGE Anatomical Region Laterality Modality Ultrasound 10/02/2024 12:4 9 PM TSO Narrative 10/02/2024 4:[address] [facility] Cardiology [address], [place] [address] [address] [facility] [address], [place] [address] P:[phone] P:[phone] Echocardiographic Report Patient Name: BRITTANY SALGADO E : 1960 Study Date: 10/02/2024 12:49:32 PM Gender: M Tech: Location: [facility] Provider: RAVIN MENDEZ Height(Cm): 168 BSA: 1.75 Weight(Kg): 65.3 Heart Rate: 82 BP: 134 / 80 Quality: Definity contrast agent used to enhance endocardial border definition Order Provider: RAVIN MENDEZ PROCEDURES: Echocardiographic Report: Transthoracic echocardiogram with complete 2D, M-Mode, color Doppler examination and Definity contrast. INDICATIONS: I10 Essential (primary) hypertension and I25.118 Atherosclerotic heart disease of [place] coronary artery with other forms of angina pectoris. MEASUREMENTS: 2D/MM Value Range Doppler Value Range EF Mod BP 51 % [ 52 - 72 ] AV Mean PG 4 mmHg EF Teich MM 55 % [ 52 - 72 ] AV Peak Arnulfo 1.43 m/s [ 1.00 - 1.70 ] Estimated EF 40 % AV Peak PG 8 mmHg LVIDd 2D 4.92 cm [ 4.20 - 5.80 ] AV VTI 23.26 cm LVIDd MM 6.68 cm [ 4.20 - 5.80 ] LVOT Peak Arnulfo 0.82 m/s [ 0.70 - 1.10 ] LVIDs 2D 3.95 cm [ 2.50 - 4.00 ] LVOT VTI 15.19 cm LVIDs MM 4.70 cm [ 2.50 - 4.00 ] MV E Peak Arnulfo 0.50 m/s [ 0.60 - 1.30 ] LVPWd MM 0.91 cm [ 0.60 - 1.00 ] MV A Peak Arnulfo 0.89 m/s [ 1.00 - 1.20 ] IVSd 2D 1.51 cm [ 0.60 - 1.00 ] MV Decel Time 185 msec [ 104 - 258 ] IVSd MM 0.84 cm [ 0.60 - 1.00 ] PV Peak Arnulfo 1.08 m/s [ 0.40 - 0.80 ] LA Dimension MM 4.28 cm [ 3.00 - 4.00 ] Lateral E` 0.05 m/s [ 0.10 - 0.15 ] AoR Diam MM 3.73 cm [ 3.10 - 3.70 ] E` 0.05 m/s LA Volume Index 26 cc/m2 [ 16 - 34 ] E/E` 10 2D/MM Value Range Doppler Value Range - FINDINGS: Interpretation Site: Exam was interpreted at [facility]. Left Ventricle: Definity contrast agent used to visually enhance endocardial wall motion and contractility. Lot Number: [id number]. Mild enlargement of left ventricle cavity. Mild global left ventricular systolic dysfunction. Impaired diastolic relaxation Grade I. Ejection fraction is measured at 51 %. Ejection Fraction is visually estimated to be 40 %. These segments of the LV are akinetic: apical segment and septum. Right Ventricle: Normal right ventricular size. Left Atrium: There is moderate enlargement of left atrium. Right Atrium: The right atrium is normal in size. Atrial Septum: Normal atrial septum. Mitral Valve: Normal appearance of the mitral valve. Mild mitral annular calcification. Aortic Valve: No evidence of hemodynamically significant aortic stenosis by Doppler. Aortic cusps appear mildly sclerotic. Tricuspid Valve: Tricuspid valve not well visualized. Pulmonic Valve: Pulmonic valve not well visualized. Pericardium: Normal pericardium with no significant pericardial effusion. Aorta: Normal aortic root. IVC: Normal size and normal respiratory collapse consistent with normal right atrial pressure (<5 mmHg). Pulmonary Artery: Normal pulmonary artery size. CONCLUSIONS: Definity contrast agent used to visually enhance endocardial wall motion and contractility. Lot Number: [id number]. Mild enlargement of left ventricle cavity. Mild global left ventricular systolic dysfunction. Impaired diastolic relaxation Grade I. Ejection fraction is measured at 51 %. Ejection Fraction is visually estimated to be 40 %. These segments of the LV are akinetic: apical segment and septum. There is moderate enlargement of left atrium. Normal appearance of the mitral valve. Mild mitral annular calcification. No evidence of hemodynamically significant aortic stenosis by Doppler. Aortic cusps appear mildly sclerotic. Technically difficult study with limited views. Improved with Definity contrast. Electronically Signed By: Drew Wallis MD, [facility] 10/02/2024 4:40:11 PM TSO Procedure Note Drew Wallis MD - 10/02/2024 [facility] Cardiology [address] [facility] [address] [place] [address] [address] [facility] [id number], [place] [address] P:[phone] P:[phone] Echocardiographic Report Patient Name: BRITTANY SALGADO E : 1960 Study Date: 10/02/2024 12:49:32 PM Gender: M Tech: Location: [facility] Provider: RAVIN MENDEZ Height(Cm): 168 BSA: 1.75 Weight(Kg): 65.3 Heart Rate: 82 BP: 134 / 80 Quality: Definity contrast agent used to enhance endocardial borderdefinition Order Provider: RAVIN MENDEZ PROCEDURES: Echocardiographic Report: Transthoracic echocardiogram with complete 2D, M-Mode, color Dopplerexamination and Definity contrast. INDICATIONS: I10 Essential (primary) hypertension and I25.118 Atherosclerotic heartdisease of [place] coronary artery with other forms of angina pectoris. MEASUREMENTS: 2D/MM Value Range Doppler ValueRange EF Mod BP 51 % [ 52 - 72 ] AV Mean PG 4mmHg EF Teich MM 55 % [ 52 - 72 ] AV Peak Arnulfo 1.43m/s [ 1.00 - 1.70 ] Estimated EF 40 % AV Peak PG 8mmHg LVIDd 2D 4.92 cm [ 4.20 - 5.80 ] AV VTI 23.26cm LVIDd MM 6.68 cm [ 4.20 - 5.80 ] LVOT Peak Arnulfo 0.82m/s [ 0.70 - 1.10 ] LVIDs 2D 3.95 cm [ 2.50 - 4.00 ] LVOT VTI 15.19cm LVIDs MM 4.70 cm [ 2.50 - 4.00 ] MV E Peak Arnulfo 0.50m/s [ 0.60 - 1.30 ] LVPWd MM 0.91 cm [ 0.60 - 1.00 ] MV A Peak Arnulfo 0.89m/s [ 1.00 - 1.20 ] IVSd 2D 1.51 cm [ 0.60 - 1.00 ] MV Decel Time 185msec [ 104 - 258 ] IVSd MM 0.84 cm [ 0.60 - 1.00 ] PV Peak Arnulfo 1.08m/s [ 0.40 - 0.80 ] LA Dimension MM 4.28 cm [ 3.00 - 4.00 ] Lateral E` 0.05m/s [ 0.10 - 0.15 ] AoR Diam MM 3.73 cm [ 3.10 - 3.70 ] E` 0.05m/s LA Volume Index 26 cc/m2 [ 16 - 34 ] E/E` 10 2D/MM Value Range Doppler ValueRange - FINDINGS: Interpretation Site: Exam was interpreted at [facility]. Left Ventricle: Definity contrast agent used to visually enhance endocardial wall motionand contractility. Lot Number: [id number]. Mild enlargement of left ventriclecavity. Mild global left ventricular systolic dysfunction. Impaired diastolic relaxation GradeI. Ejection fraction is measured at 51 %. Ejection Fraction is visually estimated jerry 40 %. These segments of the LV are akinetic: apical segment and septum. Right Ventricle: Normal right ventricular size. Left Atrium: There is moderate enlargement of left atrium. Right Atrium: The right atrium is normal in size. Atrial Septum: Normal atrial septum. Mitral Valve: Normal appearance of the mitral valve. Mild mitral annularcalcification. Aortic Valve: No evidence of hemodynamically significant aortic stenosis by Doppler.Aortic cusps appear mildly sclerotic. Tricuspid Valve: Tricuspid valve not well visualized. Pulmonic Valve: Pulmonic valve not well visualized. Pericardium: Normal pericardium with no significant pericardial effusion. Aorta: Normal aortic root. IVC: Normal size and normal respiratory collapse consistent with normal rightatrial pressure (<5 mmHg). Pulmonary Artery: Normal pulmonary artery size. CONCLUSIONS: Definity contrast agent used to visually enhance endocardial wall motionand contractility. Lot Number: [id number]. Mild enlargement of left ventriclecavity. Mild global left ventricular systolic dysfunction. Impaired diastolic relaxation GradeI. Ejection fraction is measured at 51 %. Ejection Fraction is visually estimated jerry 40 %. These segments of the LV are akinetic: apical segment and septum. There is moderate enlargement of left atrium. Normal appearance of the mitral valve. Mild mitral annularcalcification. No evidence of hemodynamically significant aortic stenosis by Doppler.Aortic cusps appear mildly sclerotic. Technically difficult study with limited views. Improved with Definitycontrast. Electronically Signed By: Drew Wallis MD, [facility] 10/02/2024 4:40:11 PM TSO Ravin Mendez MD CV ECHO PROCEDURES Final Result * Lipid panel (07/12/2024 9:01 AM TSO) [facility] SCRIBED Cholesterol, Total 281 <200 EXTERNAL LAB SCRIBED HDL 31 >40 EXTERNAL LAB SCRIBED LDL N/A <100 EXTERNAL LAB SCRIBED Triglycerides >2,100 <150 EXTERNAL LAB Blood Historical Provider LAB BLOOD ORDERABLES Edit ed Result - Final EXTERNAL LAB * (ABNORMAL) Basic metabolic panel (07/23/2023) Pathologist [facility] SCRIBED Sodium 135(A) 137 - 145 mmol/L EXTERNAL LAB SCRIBED Potassium 3.5 3.4 - 5.0 mmol/L EXTERNAL LAB SCRIBED Chloride 93(A) 98 - 107 mmol/L EXTERNAL LAB SCRIBED Carbon Dioxide 31(A) 22 - 30 mmol/L EXTERNAL LAB SCRIBED Anion Gap 11 8 - 16 mmol/L EXTERNAL LAB SCRIBED Urea Nitrogen (BUN) 27(A) 9 - 20 mg/dl EXTERNAL LAB SCRIBED Creatinine 1.20 0.7 - 1.3 mg/dl EXTERNAL LAB SCRIBED Glucose 195(A) 65 - 110 mg/dl EXTERNAL LAB SCRIBED Calcium 9.1 8.4 - 10.2 mg/dl EXTERNAL LAB SCRIBED eGFR in N/A N/A EXTERNAL LAB SCRIBED eGFR in NonAfrican Faroese >60 = or > 60 EXTERNAL LAB Blood 07/23/2023 Ravin Mendez MD LAB BLOOD ORDERABLES Katie l Result EXTERNAL LAB * (ABNORMAL) Hemoglobin A1c (12/24/2020 3:50 AM CDT) Hgb A1C 8.2(H) 4.0 - 5.6 % HUA MILLER Estimated Average Glucose 189 mg/dL HUA MILLER Comment: The ADA recommends reporting an estimated Average Glucose (eAG) with all Hemoglobin A1c results using the equation derived from a study of 507 normal and diabetic adults. Minority populations were underrepresented and children were not included. (Diabetes Care 31:4425-3151, 2008). The eAG is not equivalent to a fasting glucose. Blood specimen (specimen) 12/24/2020 3:50 AM CDT 12/24/2020 12:49 PM CDT Drew Fisher NP LAB BLOOD ORDERABLES Fi nal Result Performing Organization Address City/[facility] Co de Phone Number [facility] [id number] [address] Department [place] [address] from Last 3 Months or Most Recently Relevant to Health Maintenance Insurance [facility] HUMANA [facility]IC[facility] HMO Advance Directives For more information, please contact: [phone] * Full Code (Latest Code Status on File) Date Activated Date Inactivated Comments 01/03/2021 7:09 PM 01/16/2021 5:33 PM * Full Code Date Activated Date Inactivated Comments 12/23/2020 4:26 PM 01/03/2021 6:42 PM Care Teams Delivery Driver Assistant Relationship Specialty Start Date End Date Houser, Adria M., SLOT MACHINE MECHANIC [address] [place] [address] PCP - General Family Medicine 06/25/23
--- OUTSIDE RECORDS SUMMARY | 2024-11-06 00:44 | XMS_ITS | Referral Summary ---
Author Organization [place] [address] Address [address] [place] [address] Care Team Providers Care Health Services Coordinator Name Role Phone Adria Houser NP Primary Care Provider [phone] Encounters Date Type Department Care Team Description 10/19/2024 Telephone [facility] Medical [facility] Cardiology [address] [facility] [address] [place] [address] Ravin Mendez MD 10/19/2024 Results Follow-Up [facility] Cardiology [address] [facility] [address] [place] [address] Ravin Mendez MD 10/18/2024 11:15 AM CDT Ancillary Procedure [facility] Cardiology [address] [place] [address] Unstable angina pectoris (HCC); TAI (dyspnea on exertion) 10/03/2024 Telephone [facility] Medical [facility] Cardiology [address] [facility] [address] [place] [phone] Ravin Mendez MD 10/03/2024 Results Follow-Up [facility] Cardiology [address] [facility] [address] [place] [address] Ravin Mendez MD 10/02/2024 1:00 PM SAFETY SUPERVISOR Ancillary Procedure [facility] Cardiology [address] [facility] [address] [place] [address] Benign essential hypertension; Coronary artery disease of [place] artery of [place] heart with stable angina pectoris 08/17/2024 Orders Only [facility] Medical Group Cardiology [address] [place] [address] ProviderAta MD 08/16/2024 3:00 PM SAFETY SUPERVISOR Office Visit [facility] Medical [facility] Cardiology [address] [place] [address] Ravin Mendez MD Benign essential hypertension (Primary Dx); Coronary artery disease of [place] artery of [place] heart with stable angina pectoris; Hyperlipidemia LDL goal <70; Postoperative atrial fibrillation (HCC); Claudication from Last 3 Months Allergies No known active allergies Medications cholecalciferol (Vitamin D3) 1,000 unit capsule Take 1 capsule (1,000 Units total) by mouth daily 90 capsule Active acetaminophen 500 mg capsule Take 2 [...] mg total) by mouth daily 90 tablet Active senna-docusate (PERICOLACE) 8.6-50 mgIndications:const ipation Take 1 tablet by mouth 2 (two) times a day as needed for constipation 30 tablet Active blood glucose diagnostic (glucose blood) strip Use as directed up to four times a day. 100 each 1 Active blood glucose strip-disp meter kit Use as directed. 1 kit 06/10/2 021 Active docusate sodium (COLACE) 100 mg capsule Take 1 capsule (100 mg total) by mouth 2 (two) times a day 60 capsule 3 021 Active gabapentin (NEURONTIN) 100 mg capsule TAKE 1 CAPSULE BY MOUTH THREE TIMES A DAY 90 capsule 11 022 Active fenofibrate nanocrystallized (TRICOR) 145 mg tablet TAKE 1 TABLET BY MOUTH EVERY DAY 90 tablet 022 Active atorvastatin (LIPITOR) 80 mg tablet TAKE 1 TABLET BY MOUTH EVERY DAY AT NIGHT 90 tablet 3 023 Active carvediloL (COREG) 6.25 mg tabletIndications:C oronary artery disease of [place] artery of [place] heart with stable angina pectoris TAKE 1 TABLET BY MOUTH TWICE A DAY WITH MEALS 180 tablet 3 023 Active Trulicity 1.5 mg/0.5 mL pen injector 023 Active glimepiride (AMARYL) 4 mg tablet glimepiride 4 mg tablet TAKE 1 TABLET BY MOUTH EVERY DAY Active Klor-Con M20 20 mEq CR tablet Klor-Con M20 mEq tablet,extende d release TAKE 1 TABLET BY MOUTH EVERY DAY Active traZODone (DESYREL) 50 mg tablet 2 tablets (100 mg total) Active zolpidem (AMBIEN) 10 mg tablet zolpidem 10 mg tablet Active Januvia 50 mg tablet 023 Active famotidine (PEPCID) 20 mg tablet TAKE 1 TABLET TWICE DAILY 180 tablet 3 024 Active Repatha SureClick 140 mg/mL pen injectorIndications :Hyperlipidemia LDL goal <70 INJECT 140MG UNDER THE SKIN EVERY 2 WEEKS 6 mL 3 025 Active Eliquis 5 mg tablet TAKE 1 TABLET EVERY 12 HOURS 180 tablet 3 025 Active Eliquis 5 mg tablet TAKE 1 TABLET EVERY 12 HOURS 180 tablet 3 024 2024 Discontinued Repatha SureClick 140 mg/mL pen injectorIndications :Hyperlipidemia LDL goal <70 INJECT 140MG UNDER THE SKIN EVERY 2 WEEKS 6 mL 024 2024 Discontinued Active Problems Problem Noted Date Diagnosed Date Morbid (severe) obesity due to excess calories 0 08/14/2022 Body mass index 40.0-44.9, adult ([facility]) 08/14 Postoperative atrial fibrillation 10/21/2021 Diabetic polyneuropathy 01/03/2021 Coronary artery disease of n ative heart with stable angina pectoris 12/05/2020 Overview (12/05/2020): Added automatically from request for surgery [id number] PND (paroxysmal nocturnal dyspnea) 10/09/2020 Hypersomnolence 10/09/2020 Chest pain 10/09/2020 TAI (dyspnea on exertion) 10/09/2020 Hypertriglyceridemia 07/27/2019 Bruit of right carotid artery 05/10/2018 Anxiety 05/20/2017 Claudication 05/20/2017 Hyperlipidemia LDL goal <70 05/20/2017 Tobacco abuse 05/20/2017 Benign essential hypertension 06/14/2014 Overview (11/12/2016): Benign essential hypertension Atherosclerosis of coronary artery 06/14/2014 Overview (11/12/2016): Coronary atherosclerosis Social History Tobacco Use Types Packs/Day Years [...] on file Legal Sex Male 4:54 PM SAFETY SUPERVISOR Gender Identity Not on file Sexual Orientation Not on file Last Filed Vital Signs Vital Sign Reading Time Taken Comments Blood Pressure 134/80 08/16/2024 4:55 PM SAFETY SUPERVISOR Pulse 82 08/16/2024 3:38 PM SAFETY SUPERVISOR Temperature 36.5 C (97.7 F) 02/05/2021 4:11 PM CDT Respiratory Rate 14 05/15/2021 2:05 PM CDT Oxygen Saturation 95% 08/16/2024 3:38 PM SAFETY SUPERVISOR Inhaled Oxygen Concentration - - Weight 113.9 kg (251 lb) 10/18/2024 11:31 AM CDT Height 167.6 cm (5' 6 ) 08/16/2024 3:38 PM SAFETY SUPERVISOR Body Mass Index 40.51 08/16/2024 3:38 PM SAFETY SUPERVISOR Plan of Treatment Not on file Procedures Procedure Name Priority Date/Time Associated Diagnosis Comments NM MPI SPECT (REST AND/OR STRESS) MULTIPLE STUDIES Schedule Routine, Read Routine (OP Routine) 10/18/2024 6:42 AM CDT Unstable angina pectoris (HCC) TAI (dyspnea on exertion) TRANSTHORACIC ECHO (TTE) COMPLETE W DOPPLER/CF Routine 10/02/2024 1:37 PM SAFETY SUPERVISOR Benign essential hypertension Coronary artery disease of [place] artery of [place] heart with stable angina pectoris LIPID PANEL Routine 07/12/2024 9:01 AM SAFETY SUPERVISOR BASIC METABOLIC PANEL Routine 07/23/2023 Coronary artery disease of [place] artery of [place] heart with stable angina pectoris HEMOGLOBIN A1C Add-On 12/24/2020 3:50 AM CDT from Last 3 Months or Most Recently Relevant to Health Maintenance Results * NM MPI SPECT (Rest and/or Stress) Multiple Studies (10/18/2024 6:42 AM CDT) Anatomical Region Laterality Modality Body N/A Nuclear Medicine 10/18/2024 6:42 AM CDT Narrative 10/18/2024 6:52 PM CDT [facility] Medical Group Cardiology [address], [place] [address] [address], [place] [address] P:[phone] P:[phone] MPI Imaging Report Patient Name: BRITTANY SALGADOSamson : 1960 Study Date: 10/18/2024 6:42:29 AM Gender: M Tech: [facility] Location: [facility] Provider: RAVIN MENDEZ Height(Cm): 167.6 BSA: Weight(Kg): [...] Procedure Note Ravin Mendez MD - 10/18/2024 [facility] Medical Group Cardiology [address] [facility] [address], [place] [address] [address] [facility] [address], [place] [address] P:[phone] P:[phone] MPI Imaging Report Patient Name: BRITTANY SALGADO E : 1960 Study Date: 10/18/2024 6:42:29 AM Gender: M Tech: [facility] Location: [facility] Provider: RAVIN MENDEZ Height(Cm): 167.6 BSA: Weight(Kg): [...] W DOPPLER/CF W CONTRAST (10/02/2024 1:37 PM SAFETY SUPERVISOR) LV EF 40 % CONS SCIMAGE Anatomical Region Laterality Modality Ultrasound 10/02/2024 12:4 9 PM SAFETY SUPERVISOR Narrative 10/02/2024 4:41 PM SAFETY SUPERVISOR [facility] Medical Group Cardiology [address] [facility] [address], [place] [address] [address] [facility] [address], [place] [address] P:[phone] P:[phone] Echocardiographic Report Patient Name: BRITTANY SALGADO E : 1960 Study Date: 10/02/2024 12:49:32 PM Gender: M Tech: Location: [place] Ref Provider: RAVIN MENDEZ Height(Cm): 168 BSA: 1.75 Weight(Kg): 65.3 Heart Rate: 82 BP: 134 / 80 Quality: Definity contrast agent used to enhance endocardial border definition Order Provider: RAVIN MENDEZ PROCEDURES: Echocardiographic Report: Transthoracic echocardiogram with complete 2D, M-Mode, color Doppler examination and Definity contrast. INDICATIONS: I10 Essential (primary) hypertension and I25.118 Atherosclerotic heart disease of [place] coronary artery with other forms of angina [...] FINDINGS: Interpretation Site: Exam was interpreted at [facility]. Left Ventricle: Definity contrast agent [...] contrast. Electronically Signed By: Drew Wallis MD, [facility] 10/02/2024 4:40:11 PM SAFETY SUPERVISOR Procedure Note Drew Wallis MD - 10/02/2024 [facility] Medical Group Cardiology [address] [facility] [address], [place] [address] [address] [facility] [address], [place] [address] P:[phone] P:[phone] Echocardiographic Report Patient Name: BRITTANY SALGADO E : 1960 Study Date: 10/02/2024 12:49:32 PM Gender: M Tech: Location: [facility] Provider: RAVIN MENDEZ Height(Cm): 168 BSA: 1.75 Weight(Kg): 65.3 Heart Rate: 82 BP: 134 / 80 Quality: Definity contrast agent used to enhance endocardial borderdefinition Order Provider: RAVIN MENDEZ PROCEDURES: Echocardiographic Report: Transthoracic echocardiogram with complete 2D, M-Mode, color Dopplerexamination and Definity contrast. INDICATIONS: I10 Essential (primary) hypertension and I25.118 Atherosclerotic heartdisease of [place] coronary artery with other forms of angina [...] FINDINGS: Interpretation Site: Exam was interpreted at [facility]. Left Ventricle: Definity contrast agent [...] Definitycontrast. Electronically Signed By: Drew Wallis MD, [facility] 10/02/2024 4:40:11 PM SAFETY SUPERVISOR Ravin Mendez MD CV ECHO PROCEDURES Final Result * Lipid panel (07/12/2024 9:01 AM SAFETY SUPERVISOR) Pathologist [facility] SCRIBED Cholesterol, Total 281 <200 EXTERNAL LAB [...] N/A EXTERNAL LAB SCRIBED eGFR in NonAfrican [place]er >60 = or > 60 EXTERNAL LAB [...] and children were not included. (Diabetes Care 31:6731-1718, 2008). The eAG is not equivalent to a fasting glucose. Blood specimen (specimen) 12/24/2020 3:50 AM CDT 12/24/2020 12:49 PM CDT Drew Fisher NP LAB BLOOD ORDERABLES Fi nal Result [facility] [address] [address]villo Department [place] [address] from Last 3 Months or Most Recently Relevant to Health Maintenance Insurance [facility] HUMANA MEDICARE HMO Advance Directives For more information, please contact: [phone] * Full Code (Latest Code Status on File) Date Activated Date Inactivated Comments 01/03/2021 7:09 PM 01/16/2021 5:33 PM * Full Code Date Activated Date Inactivated Comments 12/23/2020 4:26 PM 01/03/2021 6:42 PM Care Teams Health Services Coordinator Relationship Specialty Start Date End Date Adria Houser NP [address] [place] [id number] PCP - General Family Medicine 06/25/23
--- OUTSIDE RECORDS SUMMARY | 2024-11-06 00:44 | XMS_ITS | Data Portability ---
Author Organization [facility] [place], Main Office Address [address] [place] [address] Care Team Providers Care Swat Team Member Name Role Phone VANESSARAVIN NEUMANN Die Tripper Assessment No assessment recorded. Plan of Treatment Reminders Order Date Submit Date Provider Last Modified By Organization Details Last Modified Time Details Appointments Follow Up 30 2024 08:30A Lindy Restrepo NP Not available Not available Not available Lab glycohemo globin, total, blood 2023 024 [facility] (Lab), [address] [place], [address], 07/13/2024 00:26:37 lipid panel, serum 2023 024 [facility] (Lab), [address] [place], [address], 07/13/2024 00:26:37 TSH, serum or plasma 2023 024 [facility] (Lab), [address] [place], [address], 07/19/2024 07:36:09 CBC w/ auto diff 2023 024 [facility] (Lab), [address] [place], [address], 07/13/2024 00:26:37 CMP, serum or plasma 2023 024 [facility] (Lab), [address] [place], [address], 07/20/2024 07:45:10 PSA, serum or plasma 2023 024 [facility] (Lab), [address] [place], [address], 07/19/2024 07:36:09 noninvasi ve colorecta l cancer DNA + occult blood screening , QL, stool 2023 024 [facility] (Cologuard Orders Only), [address], [address], [place], [address], 07/19/2024 07:36:37 hepatitis C Ab, serum 2023 024 [facility] (Lab), [address] [place], [address], 07/19/2024 07:36:09 BMP, serum or plasma [address] (Lab), [address] [place], [address], 03/30/2024 15:56:53 glycohemo globin, total, blood [address] (Lab), [address] [place], [address], 03/30/2024 15:57:04 BMP, serum or plasma [address] (Lab), [address] [place], [address], 12/07/2023 15:37:16 glycohemo globin, total, blood [address] (Lab), [address] [place], [address], 12/07/2023 15:37:28 Referral podiatris t referral - Please call patient to schedule an appointme nt. Thank you. 2024 025 ATHJUSTO Henry Ojeda, [address] [place], [address], Ph [phone] 10/12/2024 17:15:17 endocrino logy referral - Please call patient to schedule an appointme tn. Thank you. 2023 024 [email or web address] Agus Mariee MD, [address], [place], [address], 04/27/2024 08:43:00 Procedures None recorded. Surgeries None recorded. Imaging None recorded. Medication Orders gabapenti n 100 mg capsule 2024 025 [facility], [address] [facility], [place], [address], 10/11/2024 14:21:10 trazodone 100 mg tablet 2023 024 [id number] [address] [place], [address], 03/30/2024 15:51:05 omeprazol e 40 mg capsule,d elayed release 2023 024 [id number] [address] [place], [address], 03/30/2024 15:49:47 Mounjaro 2.5 mg/0.5 mL subcutane ous pen injector 2023 024 [facility], [address] [facility], [place], [address], 07/14/2024 16:59:38 Patient TargetsNo targets recorded. Patient Instructions Encounter Date Encounter Id Patient Instructions Last Modified By Organization Details Last Modified Time 07/12/2024 [id number] dementia rating scale-2* PETRA Not available 07/13/2024 09:38:01 diabetic foot exam* [email or web address] Not availa ble 10/12/2024 10:14:25 diabetic eye exam* ATHENAFAX Not availab le 07/13/2024 07:29:53 multi-dimensiona l health assessment questionnaire* PETRA Not available 07/13/2024 09:37:53 care plan* PETRA Not available 07/13 09:38:09 advance care planning: care instructions Not available 07/12/2024 16:04:56 advance directiv es: care instructions Not available 07/12/2024 16:04:55 [place] Advance Directives Not available 07/12/2024 16:04:56 Follow up in 3 months Obtain labs Tests: Complete cologuard Referral: Dr. Ojeda-diabetic foot exam [facility]-diabetic eye exam Recommend: Pneumococcal vaccine Tetanus vaccine Shingles vaccine Personalized Health Plan and Screening Recommendations Advance Directives - Do you have one? Yes You have indicated that you are capable of preparing your advance care directive Advance Directives - Do we have your advance directive on file in your health record? Primary Prevention/Interven tion (prevents or decreases the chance of common diseases from occurring) Smoking Risk: Non Smoker Alcohol Misuse Screening: Negative Weight: Appropriate Overwei ght continue your current weight loss efforts try to lose 5% of your body weight try to lose 10% of your body weight Physical activity: Need more exercise/physical activity minimum of 10-20 minutes of activity that causes mild breathlessness/day minimum of 20-30 minutes activity that causes mild breathlessness/day Nutrition: Poor Refer to attached handout Heart-Healthy Diet: After Your Visit Refer to attached handout DASH Diet: After Your Visit Fall Risk (screened today): Low Refer to attached handout Preventing Falls: After your Visit Vaccines Pneumococcal: Ordered Recommended today Influenza: Ordered Chronic Disease Risks Stroke: Low Risk I have no recommendations Heart Attack: Low risk I have no recommendations Clogging of the Arteries: High risk I have no recommendations Diabetes: High Risk Active diagnosis, Continue current treatment plan Secondary Prevention/Interven tion (detects treatable diseases before they may cause symptoms, disability, or ) Prostate Cancer Screening: No PSA screening necessary No digital rectal exam screening necessary Colon Cancer Screening: Colonoscopy Fecal Occult Blood Cologuard (DNA stool test) In: Ordered Date Screening Last Performed: Eye Disease Screening: Ordered Dementia Risk: Low I have no recommendations Depression Screening: Negative Positive Active diagnosis, Continue current treatment plan Not available 07/12/2024 16:03:36 Reason for Referral Endocrinology Referral for D iabetes mellitus type 2 DM Please call patient to schedule an appointmetn. Thank you. 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 Thank you. Referring Physician: Britney Restrepo [facility], Encounter Date: 10/11/2024 Results Created Date Observation Date Name Description Value Unit Range Abnormal Flag Note LastModifiedBy Organization Detail LastModifiedTime Result Notes None recorded. Problems Name Problem SNOMED Code Status Onset Date Resolution Date Notes Provider Name and Address Organization Details Recorded Time Edema of lower extremity 957724614 Active 2020 Not Available [facility] 3 10:47:11 Myocardia l infarctio n 66978199 Active x 3 Lisa Lopez APRN [address] [employer], [address], [place], [address] , [employer] 4 14:35:16 Foot callus 067935637 Active 2020 Not Available [employer] 3 10:47:11 Stasis dermatiti s of right lower extremity due to periphera l venous hypertens ion 63800482327 9103 Active 2020 Not Available [facility] 3 10:47:11 Chronic pain syndrome 585044076 Active 2020 Lisa Lopez APRN [address], [address], [place], [address] , [employer] 4 14:34:39 Periphera l vascular disease 139213926 Active 2020 Lisa Lopez APRN [address], [address], [place], [address] , [employer] 4 14:35:19 Onychomyc osis of toenails 152339547 Active 2020 Not Available [facility] 3 10:47:12 Tendiniti s of wrist 813212858 Active Not Available [facility] 3 10:47:12 Coronary atheroscl erosis 267541568 Active 2020 Lisa Lopez APRN [address], [address], [place], [address] , [employer] 4 14:34:49 Celluliti s of lower limb 373223713 Completed 202004/16/2021 Not Available [facility] 3 10:47:12 Coronary arteriosc lerosis 00045937 Active Lisa Lopze APRN [address], [address], [place], [address] , [employer] 4 14:34:46 Diabetes mellitus 27575399 Active 2020 Lisa Lopez APRN [address], [address], [place], [address] , [employer] 4 14:34:54 Cardiomyo miryam 92523457 Active 2020 Lisa Lopez APRN [address], [address], [place], [address] , [employer] 4 14:34:31 Dystrophi a unguium 38198648 Active 2021 Lisa Lopez APRN [address], [address], [place], [address] , [employer] 4 14:35:00 Ulcer of lower extremity 55616461 Active 2020 Not Available [facility] 3 10:47:12 Insomnia 989432099 Active 2022 Lisa Lopez APRN [address], [address], [place], [address] , [employer] 4 14:35:12 Hyperlipi demia 52145489 Active 2022 Lisa Lopez APRN [address], [address], [place], [address] , [employer] 4 14:35:10 Hypokalem ia 74669399 Active 2022 TAYLOR Mata [address], [address], [place], [address] , [employer] [place] [employer] 3 10:30:27 Hyponatre lo 55164729 Active 2022 TAYLOR Mata [address], [address], [place], [address] , [employer] 3 10:30:43 Tooth disorder 785101088 Active 2022 TAYLOR Mata [address], [address], [place], [address] , [employer] 3 16:12:03 Renal impairmen t 733765634 Active 2022 Lisa Lopez APRN [address], [address], [place], [address] , [employer] 4 14:35:31 Chronic constipat ion 437007551 Active 2022 Lisa Lopez APRN [address], [address], [place], [address] , [employer] 4 14:34:36 Hyperglyc emia due to type 2 diabetes mellitus 72706011321 9109 Active 2022 TAYLOR Mata [address], [address], [place], [address] , [employer] 3 16:27:54 Dental abscess 237442514 Active 2023 FAIZAN Lorenz [address], [address], [place], [address] , [employer] [place] [employer] 4 15:17:33 Chronic back pain 295143910 Active 2023 Lisa Lopez APRN [address], [address], [place], [address] , [employer] 4 14:34:34 Gastroeso phageal reflux disease 454652633 Active 2023 Lisa Lopez APRN [address], [address], [place], [address] , [employer] 4 14:35:05 Disorder of prostate 11005315 Active 2023 Lisa Lopez APRN [address] [facility], [address] [address], [place], [address] , [employer] 4 15:58:47 Depressiv e disorder 86659452 Active 2023 Lisa Lopez APRN [address] [facility], [address] [address], [place], [address] , [employer] 4 16:00:57 Hypertrig lyceridem ia 350475390 Active 2023 Lisa Lopez APRN [address] [facility], [address] [address], [place], [address] , [employer] 4 08:56:01 Diabetic periphera l neuropath y 608771489 Active 2024 FAIZAN Valerio [address] [facility], [address] [address], [place], [address] , [employer] 5 14:28:53 Problem Notes None recorded. Procedures Surgical History Date Name Laterality Status Provider Name and Address Organization Details Recorded Time 4 Medicare Wellness CPT Code, subsequent completed Lisa Lopez APRN [address], [place] [address] [address], [place], [address], [employer] 07/04/2024 14:39:05 procedure on heart completed Not Available [facility] 10/07/2022 10:42:46 Imaging Results None recorded. Procedure Notes None recorded. Medical Equipment None Reported. Allergies No known drug allergies Medications Name Sig Start Date Stop Date Status Note LastModified by Organization Details LastModified Time Prescript ion - Prior Authoriza tion Request active Not Available Not Available Not Available amoxicill in 500 mg capsule TK ONE C PO TID TAT 01/22 completed Not Available Not Available Not Available furosemid e 40 mg tablet TAKE 1 TABLET BY MOUTH EVERY DAY IN THE MORNING active Not Available Not Available No t Available metolazon e 2.5 mg tablet Take 1 tablet every other day by oral route. active Not Available Not Available No t Available atorvasta tin 80 mg tablet TAKE 1 TABLET EVERY NIGHT active Not Available Not Available No t Available carvedilo l 6.25 mg tablet TAKE 1 TABLET TWICE DAILY WITH MEALS active Not Available Not Available No t Available niacin ER 1,000 mg tablet,ex tended release 24 hr TAKE 1 TABLET BY MOUTH EVERY DAY AT NIGHT 01/22 completed Not Available Not Available Not Available trazodone 50 mg tablet TAKE 1 TABLET BY MOUTH EVERY DAY 07/12 completed Not Available Not Available Not Available azithromy birdie 250 mg tablet TAKE 2 TABLETS (500 MG) BY ORAL ROUTE ONCE DAILY FOR 1 DAY THEN 1 TABLET (250 MG) BY ORAL ROUTE ONCE DAILY FOR 4 DAYS active Not Available Not Available No t Available amiodaron e 200 mg tablet TAKE 1 TABLET BY MOUTH EVERY DAY 06/25 completed Not Available Not Available Not Available urea 40 % topical cream APPLY TO THE AFFECTED AREA(S) of heels BY TOPICAL ROUTE 2 TIMES PER DAY 05/28 completed Not Available Not Available Not Available prednison e 20 mg tablet active Not Available Not Available Not Available isosorbid e mononitra te ER 30 mg tablet,ex tended release 24 hr 05/28 completed Not Available Not Available Not Available metoprolo l succinate ER 100 mg tablet,ex tended release 24 hr TAKE 1 TABLET BY MOUTH EVERY DAY 01/22 completed Not Available Not Available Not Available sodium chloride 1 gram tablet Take 1 tablet twice a day by oral route for 5 days. active Not Available Not Available No t Available metolazon e 5 mg tablet Take one tab po daily 08/18 completed Not Available Not Available Not Available clopidogr el 75 mg tablet TAKE 1 TABLET BY MOUTH EVERY DAY 01/22 completed Not Available Not Available Not Available omeprazol e 40 mg capsule,d elayed release Take 1 capsule every day by oral route. active Not Available Not Available No t Available aspirin 81 mg tablet,de layed release Take 1 tablet every day by oral route. 2013 active Not Available Not Available Not Avai lable acetamino phen 500 mg tablet Take 2 tablets every 6 hours by oral route as needed. 2021 active Not Available Not Available Not Avai lable triamcino lone acetonide 0.1 % topical cream APPLY A THIN LAYER TO THE AFFECTED AREA(S)r braulio lower leg BY TOPICAL ROUTE 2 TIMES PER DAY active Not Available Not Available No t Available spironola ctone 25 mg tablet 01/22 completed Not Available Not Available Not Available carvedilo l 3.125 mg tablet TAKE 1 TABLET BY MOUTH TWICE A DAY 05/28 completed Not Available Not Available Not Available glimepiri de 1 mg tablet TAKE 1 TABLET BY MOUTH EVERY DAY 07/12 completed Not Available Not Available Not Available amoxicill in 875 mg tablet TAKE 1 TABLET BY MOUTH EVERY 12 HOURS FOR 10 DAYS 07/12 completed Not Available Not Available Not Available alprazola m 0.25 mg tablet 01/22 completed Not Available Not Available Not Available potassium chloride ER 20 mEq tablet,ex tended release(p art/cryst ) TAKE 1 TABLET TWICE DAILY active Not Available Not Available No t Available famotidin e 20 mg tablet TAKE 1 TABLET BY MOUTH TWICE A DAY active Not Available Not Available No t Available methocarb bonnie 750 mg tablet Take 1 tablet 3 times a day by oral route. active Not Available Not Available No t Available oxycodone -acetamin ophen 10 mg-325 mg tablet Take 1 tablet 3 times a day by oral route for 30 days. active Not Available Not Available No t Available tamsulosi n 0.4 mg capsule TAKE 1 CAPSULE BY MOUTH EVERY DAY IN THE MORNING 05/28 completed Not Available Not Available Not Available trazodone 100 mg tablet TAKE 2 TABLETS BY MOUTH EVERY DAY AT BEDTIME active Not Available Not Available No t Available cephalexi n 500 mg capsule Take 1 capsule every 12 hours by oral route for 10 days. active Not Available Not Available No t Available lisinopri l 10 mg tablet TAKE 1/2 TABLET BY MOUTH EVERY DAY 01/22 completed Not Available Not Available Not Available glimepiri de 4 mg tablet TAKE 2 TABLETS BY MOUTH EVERY DAY FOR 90 DAYS active Not Available Not Available No t Available lidocaine 5 % topical patch 10/20 /2022 completed Not Available Not Available Not Available nitroglyc hemant 0.4 mg sublingua l tablet PLACE 1 TAB UNDER TONGUE EVERY 5 MINS, UP TO 3 DOSES NEEDED FOR CHEST PAIN, CALL 911 IF NO RELIEF active Not Available Not Available No t Available docusate sodium 100 mg capsule TAKE 1 CAPSULE BY MOUTH TWICE A DAY 2023 active Not Available Not Available Not Avai lable diclofena c sodium 75 mg tablet,de layed release Take 1 tablet twice a day by oral route. active [employer] Not Available Not Available Not Available ammonium lactate 12 % topical cream APPLY TO BOTH HEELS TWICE DAILY NEEDED TWICE A DAY 05/28 completed Not Available Not Available Not Available lisinopri l 5 mg tablet TAKE 1 TABLET BY MOUTH EVERY DAY 01/22 completed Not Available Not Available Not Available zolpidem 5 mg tablet TAKE 1 TABLET NEEDED BY ORAL ROUTE AT BEDTIME. 01/13 completed Not Available Not Available Not Available gabapenti n 100 mg capsule Take 2 capsules po qam and tk 3 cs po qpm active Not Available Not Available No t Available zolpidem 10 mg tablet TAKE 1 TABLET AT BEDTIME 07/12 completed Not Available Not Available Not Available albuterol sulfate HFA 90 mcg/actua tion aerosol inhaler INHALE 2 PUFFS Q 4 H PRN active Not Available Not Available No t Available Microlet Lancet USE DIRECTED TO TEST BLOOD SUGAR UP TO 4 TIMES A DAY active Not Available Not Available No t Available amoxicill in 875 mg-potass ium clavulana te 125 mg tablet TAKE 1 TABLET BY MOUTH EVERY 12 HOURS FOR 10 DAYS 07/12 completed Not Available Not Available Not Available Crestor 40 mg tablet 05/06 completed Not Available Not Available Not Available metoprolo l tartrate 25 mg tablet 01/13 completed Not Available Not Available Not Available Vitamin D3 2000 IU 2013 active Not Available Not Available Not Avai lable sodium chloride 1,000 mg soluble tablet TAKE 1 TABLET EVERY DAY active Not Available Not Available No t Available fenofibra te nanocryst allized 145 mg tablet TAKE 1 TABLET EVERY DAY 10/11 completed Not Available Not Available Not Available Januvia 50 mg tablet TAKE 1 TABLET EVERY DAY active Not Available Not Available No t Available Januvia 100 mg tablet TAKE 1 TABLET BY MOUTH EVERY DAY 05/21 completed Not Available Not Available Not Available Symbicort 80 mcg-4.5 mcg/actua tion HFA aerosol inhaler Inhale 1 puff twice a day by inhalati on route. 01/22 completed Not Available Not Available Not Available fenofibra te 150 mg capsule Take one capsule daily 07/12 completed Not Available Not Available Not Available oxycodone 10 mg tablet 01/13 completed Not Available Not Available Not Available Trilipix 135 mg capsule,d elayed release 05/06 completed Not Available Not Available Not Available Tradjenta 5 mg tablet TAKE 1 TABLET BY MOUTH EVERY DAY 01/13 completed Not Available Not Available Not Available OneTouch Verio test strips USE TO TEST DAILY active Not Available Not Available No t Available Vascepa 1 gram capsule Take 2 capsules twice a day by oral route as directed . active Not Available Not Available No t Available Eliquis 5 mg tablet TAKE 1 TABLET BY MOUTH TWICE A DAY active Not Available Not Available No t Available Farxiga 10 mg tablet Take 1 tablet every day by oral route. 01/22 completed Not Available Not Available Not Available potassium chloride ER 20 mEq tablet,ex tended release Take 1 tablet twice a day by oral route for 90 days. 07/12 completed Not Available Not Available Not Available Trulicity 1.5 mg/0.5 mL subcutane ous pen injector INJECT 1.5MG UNDER THE SKIN EVERY WEEK 09/15 completed Not Available Not Available Not Available Trulicity 0.75 mg/0.5 mL subcutane ous pen injector INJECT 0.75 MG EVERY WEEK BY SUBCUTAN EOUS ROUTE 09/15 completed Not Available Not Available Not Available Praluent Pen 75 mg/mL subcutane ous pen injector INJECT 75 MG UNDER THE SKIN EVERY 14 (FOURTEE N) DAYS 01/13 completed Not Available Not Available Not Available Repatha SureClick 140 mg/mL subcutane ous pen injector INJECT 1 ML (140 MG TOTAL) UNDER THE SKIN EVERY 14 DAYS. active Not Available Not Available No t Available OneTouch Verio Flex Meter active Not Available Not Available Not Available Repatha Pushtrone x 420 mg/3.5 mL subcutane ous wearable injector 07/12 completed Not Available Not Available Not Available OneTouch Delica Plus Lancet 33 gauge active Not Available Not Available Not Available Trulicity 3 mg/0.5 mL subcutane ous pen injector INJECT 3MG (1 PEN) UNDER THE SKIN EVERY WEEK 09/15 completed Not Available Not Available Not Available Trulicity 4.5 mg/0.5 mL subcutane ous pen injector Inject 4.5 mg every week by subcutan eous route. 07/12 completed Not Available Not Available Not Available Mounjaro 5 mg/0.5 mL subcutane ous pen injector Inject 0.5 mL every week by subcutan eous route as directed . active Not Available Not Available No t Available Mounjaro 2.5 mg/0.5 mL subcutane ous pen injector INJECT 2.5MG (1 PEN) UNDER THE SKIN EVERY WEEK FOR 4 WEEKS THEN INCREASE TO 5MG DOSE active Not Available Not Available No t Available Ozempic 0.25 mg or 0.5 mg (2 mg/3 mL) subcutane ous pen injector Inject 0.5 mg every week by subcutan eous route. 07/14 completed Not Available Not Available Not Available Vitals Date Recorded Body height Body mass index (BMI) Body weight Body temperature Heart rate Oxygen saturation Oxygen saturation in Arterial blood by Pulse oximetry Systolic blood pressure Diastolic blood pressure Provider Name and Address Organization Details Last Updated DateTime 4 167.64 cm 39.4 kg/m2 253846. 54 g 97.1 [degF] 88 /min 96 % 96 % 118 mm[Hg] 70 mm[Hg] Lilian Camarena RN [place] [employer] [facility] 4 15:06:02 Date Recorded Body height Body mass index (BMI) Body weight Body temperature Heart rate Oxygen saturation Oxygen saturation in Arterial blood by Pulse oximetry Systolic blood pressure Diastolic blood pressure Provider Name and Address Organization Details Last Updated DateTime 4 167.64 cm 40 kg/m2 630804. 91 g 96.3 [degF] 95 /min 95 % 95 % 126 mm[Hg] 70 mm[Hg] Lilian Camarena RN [facility] [employer] [facility] 4 15:02:09 Date Recorded Body height Body mass index (BMI) Body weight Body temperature Heart rate Oxygen saturation Oxygen saturation in Arterial blood by Pulse oximetry Systolic blood pressure Diastolic blood pressure Provider Name and Address Organization Details Last Updated DateTime 4 167.64 cm 40.5 kg/m2 799742. 68 g 98.1 [degF] 87 /min 94 % 94 % 136 mm[Hg] 88 mm[Hg] Lilian Camarena RN [facility] [employer] [facility] 4 15:09:41 Date Recorded Body height Body mass index (BMI) Body weight Body temperature Heart rate Oxygen saturation Oxygen saturation in Arterial blood by Pulse oximetry Systolic blood pressure Diastolic blood pressure Provider Name and Address Organization Details Last Updated DateTime 5 167.64 cm 40.7 kg/m2 738169. 28 g 96.7 [degF] 88 /min 95 % 95 % 136 mm[Hg] 80 mm[Hg] Abena Pierre RN [facility] [employer] [facility] 5 14:08:07 Social History Question Answer Notes LastModified by Organizat ion Details LastModified Time Tobacco Smoking Status Former Smoker Lilian Camarena RN [facility] [employer] [facility] 07/12/2024 15:06:43 Do You Have An Advance Directive? No [id number] Information not available 10/07/2022 What Is Your Level Of Alcohol Consumption? None [id number] Information not available 10/07/2022 What Is Your Level Of Caffeine Consumption? Moderate [id number] Information not available 10/07/2022 How Much Tobacco Do You Chew? None [id number] Information not available 10/07/2022 In The 14 Days Before Symptom Onset, Have You Had Close Contact With A Laboratory-confir med COVID-19 While That Case Was Ill? No [id number] Information not available 10/07/2022 In The 14 Days Before Symptom Onset, Have You Had Close Contact With A Person Who Is Under Investigation For COVID-19 While That Person Was Ill? No [id number] Information not available 10/07/2022 What Type Of Diet Are You Following? REGULAR [id number] Information not available 10/07/2022 Which Illicit Or Recreational Drugs Have You Used? No MIGRATION.[id number] Information not available 10/07/2022 Do You Or Have You Ever Used E-cigarettes Or Vape? Never Used Electronic Cigarettes MIGRATION.[id number] Information not available 10/07/2022 What Is Your Occupation? Laid Off MIGRATION.[id number] Information not available 10/07/2022 Are There Any Guns Present In Your Home? No MIGRATION.275719 5602 Information not available 10/07/2022 Do You Have A Medical Power Of Pipe Out Worker? No MIGRATION.860085 0714 Information not available 10/07/2022 Are You Passively Exposed To Smoke? No MIGRATION.972063 0860 Information not available 10/07/2022 Do You Or Have You Ever Used Smokeless Tobacco? Never Used Smokeless Tobacco MIGRATION.465240 2167 Information not available 10/07/2022 How Much Tobacco Do You Smoke? No MIGRATION.172955 8017 Information not available 10/07/2022 Do You Use Sunscreen Routinely? Yes MIGRATION.146117 6546 Information not available 10/07/2022 Have You Recently Traveled Abroad? No MIGRATION.531775 1385 Information not available 10/07/2022 Do You Have Any Dietary Restrictions? No MIGRATION.963952 4728 Information not available 10/07/2022 Sex: Unknown Functional Status Question Answer Note LastModified by Organizat ion Details LastModified Time What is your exercise level? None [id number] Information not available 10/07/2022 Mental Status None recorded. Family History Relationship Description Onset Age of this Age Resolved Age Notes LastModified by Organization Details LastModified Time Father Heart disease [id number] Not available 10/07/2022 10:42:48 Father Diabetes mellitus MIGRATION.[id number] Not available 10/07/2022 10:42:48 Notes:no colon, no prostate cancer Medical History Condition Response BLINDNESS N RHEUMATIC FEVER N BLADDER PROBLEMS N KIDNEY STONES N MRSA N OTHER # 1 N POLIO N LUNG DISEASE/DISORDER N RADIATION / CHEMOTHERAPY N COPD N Other # 2 N BLOOD DISEASES N SURGERY N EAR OR HEARING PROBLEMS N MUMPS N DEPRESSION (INCLUDING POST ) N FEMALE PROBLEMS / INFECTIONS N BOWEL PROBLEMS N STROKE/TIA N THYROID DISEASE N ULCERS N BENIGN PROSTATIC HYPERPLASIA N MEASLES N CERVICALGIA N TB SKIN TEST N MYOCARDIAL INFARCTION N PARAPELGIA N OBESITY N GERD/NAUSEA N ANEURYSM N URINARY/BLADDER/KIDNEY PROBLEMS N CORONARY ARTERY DISEASE (CAD) N MENIERE'S DISEASE N ADDICTION CONCERNS N ENDOMETRIOSIS N USE OF BLOOD THINNERS N SKIN PROBLEMS N EMPHYSEMA N GASTROINTESTINAL DISORDER N MUSCLE,JOINT OR BONE PROBLEMS N GASTROINTESTINAL BLEEDING N BLOOD CLOTS N ASTHMA N CATARACTS N ERECTILE DYSFUNCTION N GI PROBLEMS N CHF N Low Testosterone N NEUROPATHY N INFERTILITY N AIDS/HIV N FRACTURES N CHEMOTHERAPY / RADIATION N VISION/EYE PROBLEMS N LIVER DISEASE N MALE HYPOGONADISM N HYPERTENSION N TOURETTE'S N ANXIETY DISORDER N BLOOD TRANSFUSION N ANEMIA/BLOOD DISORDER N CHRONIC EAR INFECTIONS N BRONCHITIS N TUBERCULOSIS N GLAUCOMA N FOOT PROBLEM N DIVERTICULITIS N CHICKENPOX N SLEEP APNEA N ALLERGIES/HAYFEVER N INFECTIOUS DISEASE N HEART ARRHYTHMIA N PROSTATE N INSOMNIA N HIGH CHOLESTEROL / HYPERLIPIDEMIA N HYPERTHYROIDISM N EYE PROBLEMS N EATING DISORDER N EDEMA N CHRONIC PAIN SYNDROME N CAROTID BLOCKAGE N CONSTIPATION N BACK / NECK PROBLEMS N HAVE YOU BEEN HOSPITALIZED OR SEEN IN PSYCHIATRIC IN THE PAST YEAR ? Y ATHEROSCLEROSIS N BREAST PROBLEMS N DIALYSIS N ECZEMA N FIBROMYALGIA N OSTEOPOROSIS N ARTHRITIS N NO SIGNIFICANT PAST MEDICAL HISTORY N APPENDICITIS N DIABETES, TYPE N BAD TEETH N HEARTBURN / REFLUX N ADD/ADHD N AUTISM SPECTRUM DISORDER (ASD) N HEPATITIS / LIVER DISEASE N PULMONARY DISEASE N GOUT N SLEEP DISORDER N ALZHEIMER'S DISEASE N PAIN N HERPES N DEMENTIA N HEADACHES/MIGRAINES N SEIZURES/EPILEPSY N VASCULAR DISEASE N PACEMAKER N DIZZINESS N HEART DISEASE/HEART PROBLEMS N KIDNEY DISEASE N DEVELOPMENTAL OR BEHAVIORAL DISORDERS N MULTIPLE SCLEROSIS N SCARLET FEVER N MENTAL DISORDER/ILLNESS N CARDIAC ARRHYTHMIA N CANCER: SPECIFY N PNEUMONIA N ATRIAL FIBRILLATION N Gall Stones N PULMONARY EMBOLISM N AUTOIMMUNE DISEASE N Immunizations Vaccine Type Date Status Note Provider Nam e and Address Organization Details Recorded Time COVID-19, mRNA, LNP-S, PF, 30 mcg/0.3 mL dose 03/16/2021 completed Lisa Lopez APRN [address] [address], [place], [address], [facility] [employer] 07/04/2024 14:33:16 COVID-19, mRNA, LNP-S, PF, 30 mcg/0.3 mL dose 02/23/2021 completed Lisa Lopez APRN [address] [address], [place], [address], [employer] 07/04/2024 14:33:16 Influenza, split virus, quadrivalent, PF 06/25/2022 completed Not Available [employer] 10:51:57 Influenza, split virus, quadrivalent, PF 07/12/2024 completed Lilian Camarena RN null, [employer] 07/12/2024 16:29:09 Past Encounters Encounter ID Performer Location Encounter Start Date Encounter Closed Date Diagnosis/Indication Diagnosis SNOMED-CT Code Diagnosis ICD10 Code Diagnosis Note [id number] [facility] [place] [address] [facility] [address] [place] [address] 01/22/2021 00:00:00 01/22/2021 19:37:56 [id number] [facility] [place] [address] [facility] [address] [place] [address] 02/07/2021 00:00:00 02/07/2021 22:13:25 [id number] [facility] [place] [address] [facility] [address] [place] [address] 03/07/2021 00:00:00 03/07/2021 15:01:14 [id number] [facility] [place] [address] [facility] [address] [place] [address] 04/08/2021 00:00:00 04/08/2021 21:22:21 [id number] [facility] [address] [place] [address] 04/16/2021 00:00:00 04/16/2021 17:27:43 [id number] [facility] [address] [place] [address] 04/30/2021 00:00:00 05/01/2021 21:16:10 [id number] [facility] [place] [address] [facility] [address] [place] [address] 05/23/2021 00:00:00 05/23/2021 15:41:12 [id number] [facility] [place] [address], [address] [place] [address] 05/27/2021 00:00:00 05/27/2021 13:29:47 [id number] [facility] [place] [address] [place] [address] 06/30/2021 00:00:00 06/30/2021 18:03:57 [id number] [facility] [place] [address] [facility], [address] [place] [address] 08/28/2021 00:00:00 08/28/2021 16:14:47 [id number] [facility] [place] [address] [place] [address] 09/18/2021 00:00:00 09/18/2021 20:48:49 [id number] [facility] [place] [address] [place] [address] 01/13/2022 00:00:00 01/13/2022 15:08:33 [id number] [facility] [place] [address] [place] [address] 01/20/2022 00:00:00 01/22/2022 08:08:12 [id number] [facility] [place] [address] [place] [address] 02/18/2022 00:00:00 02/18/2022 17:47:46 [id number] [facility] [place] [address] [place] [address] 05/21/2022 00:00:00 05/21/2022 20:33:25 [id number] [facility] [place] [address] [place] [address] 05/28/2022 00:00:00 05/28/2022 20:01:00 [id number] [facility] [place] [address] [place] [address] 06/25/2022 00:00:00 06/25/2022 15:48:08 [id number] [facility] [place] [address] [facility] [address] [place] [address] 07/08/2022 00:00:00 07/08/2022 14:51:21 [id number] [facility] Primary [facility] [place] [address] [facility] [address] [place] [address] 08/25/2022 00:00:00 08/25/2022 19:29:16 [id number] Abida Wills, LUNCHROOM AIDE [facility] Primary [facility] [place] [address] [facility] [address] [place] [address] 10/08/2022 15:08:02 10/08/2022 15:49:31 Diabetes mellitus 78081726 E11.65 ChronicImp roving [id number] 11.2 (05/23/21) ; 8.5 (09/18/21); 10.4 (01/20/22); 13.9 (05/21/22) ; 12.9 (08/25/22)F arxiga/Tra djenta were not covered by insurance. Pt is not a good candidate for metformin d/t risk for GI upset. Since pt already having issues with constipati on r/t opioid pain meds and reflux sx, recommend against this medication . Since other meds too expensive and pt unable to take metformin, pt advised to continue with glimepirid e 8mg (2-4mg tabs) daily and Januvia 50mg dailyPt would likely be a good candidate for GLP-1 in light of his cardiac hx and weight. Will plan to add on after next round of labs in November. Insomnia 782877815 G47.0 0 No improvemen t with otc sleep aids, zolpidem alone was ineffectiv e, even at the 10mg dose. Pt advised that max dose is 10mg dosage. Discussed that taking more is unsafe and increases risk of misuse. Pt agrees to take only as prescribed . Will monitor closely for potential interactio ns btw trazodone and pts cardiac meds. Peripheral vascular disease [id number] I73.9 ChronicPt has had CABG X2 following MS x 3Pt needs to be on anticoagul ant therapy daily. Poor candidate for warfarin d/t requiremen t for lab monitoring and dietary restrictio ns. Pt does not have transporta tion and needs to work on weight loss. Dietary restrictio ns will impact ability to lose weight. Recommend pt remain on Eliquis as he has been on this since surgery, tolerates well, and is preferred medication from cardiology . Continue with Eliquis 5mg BID. Hyperlipidemia 09630387 E78.5 Chronictot al 121, trigs 492 (09/18/21); trigs >2100, hdl 28 (05/21/22) ; total 203, trigs 1527, hdl 29 (08/25/22)D iscussed need for regular exercise, increase intake of water/vege tables/fib er. Decrease the amount of greasy/fat ty/fried foods in diet. Recommend taking a daily fish oil supplement , continue atorvastat in 80mg per ADA guidelines along with fenofibrat e and Repatha.Pt advised to contact cardiology and advise that triglyceri aurelia are extremely high despite regimen. [id number] TAYLOR Mata [facility] Primary [facility] [address] [facility] [address] [place] [address] 11/24/2022 15:03:38 11/24/2022 16:20:31 Diabetes mellitus [id number] E11.65 ChronicImp roving [id number] 11.2 (05/23/21) ; 8.5 (09/18/21); 10.4 (01/20/22); 13.9 (05/21/22) ; 12.9 (08/25/22)F arxiga/Tra djenta were not covered by insurance. Pt is not a good candidate for metformin d/t risk for GI upset. Since pt already having issues with constipati on r/t opioid pain meds and reflux sx, recommend against this medication . Since other meds too expensive and pt unable to take metformin, pt advised to continue with glimepirid e 8mg (2-4mg tabs) daily and Januvia 50mg dailyPt would likely be a good candidate for GLP-1 in light of his cardiac hx and weight. Will plan to add on after next round of labs in November. Insomnia 083144598 G47.0 0 No improvemen t with otc sleep aids, zolpidem alone was ineffectiv e, even at the 10mg dose. Pt advised that max dose is 10mg dosage. Discussed that taking more is unsafe and increases risk of misuse. Pt agrees to take only as prescribed . Will monitor closely for potential interactio ns btw trazodone and pts cardiac meds.Diane nue trazodone 50mg QHSZolpide m 10mg daily Hyperlipidemia 31362166 E78.5 Chronictot al 121, trigs 492 (09/18/21); trigs >2100, hdl 28 (05/21/22) ; total 203, trigs 1527, hdl 29 (08/25/22)D iscussed need for regular exercise, increase intake of water/vege tables/fib er. Decrease the amount of greasy/fat ty/fried foods in diet. Recommend taking a daily fish oil supplement , continue atorvastat in 80mg per ADA guidelines along with fenofibrat e and Repatha.Pt to repeat lipid panel d/t triglyceri aurelia are extremely high despite being on Repatha, statin, fenofibrat e. [id number] TAYLOR Mata [facility] [address] [facility] [address] [place] [address] 12/24/2022 15:20:08 12/24/2022 16:29:55 Diabetes mellitus 24263820 E11.65 ChronicImp roving [id number] 11.2 (05/23/21) ; 8.5 (09/18/21); 10.4 (01/20/22); 13.9 (05/21/22) ; 12.9 (08/25/22); 13.4 (11/24/22). Farxiga/Tr adjenta were not covered by insurance. Pt is not a good candidate for metformin d/t risk for GI upset. Since pt already having issues with constipati on r/t opioid pain meds and reflux sx, recommend against this medication . Since other meds too expensive and pt unable to take metformin, pt advised to continue with glimepirid e 8mg (2-4mg tabs) daily and Januvia 50mg dailyPt is be a good candidate for GLP-1 in light of his cardiac hx and weight.Sta rt Trulicity 0.75mg weekly. Pt to monitor BS closely and plan will be to titrate glimepirid e down. Hyperlipidemia 67529038 E78.5 Chronictot al 121, trigs 492 (09/18/21); trigs >2100, hdl 28 (05/21/22) ; total 203, trigs 1527, hdl 29 (08/25/22); trigs 1933, hdl 24 (11/24/22). Discussed need for regular exercise, increase intake of water/vege tables/fib er. Decrease the amount of greasy/fat ty/fried foods in diet. Recommend taking a daily fish oil supplement , continue atorvastat in 80mg per ADA guidelines along with fenofibrat e and Repatha.Up dated labs will be forwarded to Dr. Ravin May's office. Hypokalemia 72184244 E87 .6 New finding on labsK 3.1 (11/24/22)R epeat bmp following potassium supplement ation increase Hyponatremia 31199771 E8 7.1 New finding on labsNa 127 (11/24/22)R epeat bmp following 7-day course of sodium tabs. Tooth disorder 138641680 K08.9 New problemSta rt PO abx. Advised warm, salt-water gargles several times daily, take otc pain relievers per package instructio ns, f/u with dental provider tiffanie. Call or be seen for any fever or worsening of sx. [id number] TAYLOR Mata [facility] Primary Care [facility] [address] [facility] [address] [place] [address] 01/21/2023 15:18:58 01/21/2023 17:35:17 Diabetes mellitus 84650240 E11.65 ChronicImp roving [id number] 11.2 (05/23/21) ; 8.5 (09/18/21); 10.4 (01/20/22); 13.9 (05/21/22) ; 12.9 (08/25/22); 13.4 (11/24/22). Farxiga/Tr adjenta were not covered by insurance. Pt is not a good candidate for metformin d/t risk for GI upset. Since pt already having issues with constipati on r/t opioid pain meds and reflux sx, recommend against this medication . Since other meds too expensive and pt unable to take metformin, pt advised to continue with glimepirid e 8mg (2-4mg tabs) daily and Januvia 50mg dailyPt is be a good candidate for GLP-1 in light of his cardiac hx and weight.Inc rease to Trulicity 1.5mg weekly. Pt to monitor BS closely and plan will be to titrate glimepirid e down. Hyperlipidemia 25650634 E78.5 Chronictot al 121, trigs 492 (09/18/21); trigs >2100, hdl 28 (05/21/22) ; total 203, trigs 1527, hdl 29 (08/25/22); trigs 1933, hdl 24 (11/24/22). Discussed need for regular exercise, increase intake of water/vege tables/fib er. Decrease the amount of greasy/fat ty/fried foods in diet. Recommend taking a daily fish oil supplement , continue atorvastat in 80mg per ADA guidelines along with fenofibrat e and Repatha.Up dated labs will be forwarded to Dr. Ravin May's office. Hypokalemia 75613702 E87 .6 Minimal improvemen t since last visit.K 3.1 (11/24/22); 3.2 (12/24/22)C ontinue daily K supplement Klor-Con ER 20meq Hyponatremia 62824334 E8 7.1 Improvemen t from last reading, but not back to normal range.Na 127 (11/24/22); 130 (12/24/22)R esume daily Na supplement Sodium Chlor 1000mg daily Renal impairment 0531214 03 N28.9 WorseningB UN 39, Creat 1.51 (12/24/22)W ill refer to nephrology for further evaluation /tx. [id number] TAYLOR Mata [facility] Primary Care [facility] [address] [facility] [address] [place] [address] 04/09/2023 14:06:32 04/09/2023 14:35:42 Diabetes mellitus 64748804 E11.65 ChronicImp roving [id number] 11.2 (05/23/21) ; 8.5 (09/18/21); 10.4 (01/20/22); 13.9 (05/21/22) ; 12.9 (08/25/22); 13.4 (11/24/22). Farxiga/Tr adjenta were not covered by insurance. Pt is not a good candidate for metformin d/t risk for GI upset. Since pt already having issues with constipati on r/t opioid pain meds and reflux sx, recommend against this medication . Since other meds too expensive and pt unable to take metformin, pt advised to continue with glimepirid e 8mg (2-4mg tabs) daily and Januvia 50mg dailyPt is be a good candidate for GLP-1 in light of his cardiac hx and weight.Inc rease to Trulicity 1.5mg weekly. Pt to monitor BS closely and plan will be to titrate glimepirid e down. Hyperlipidemia 64386799 E78.5 Chronictot al 121, trigs 492 (09/18/21); trigs >2100, hdl 28 (05/21/22) ; total 203, trigs 1527, hdl 29 (08/25/22); trigs 1933, hdl 24 (11/24/22). Discussed need for regular exercise, increase intake of water/vege tables/fib er. Decrease the amount of greasy/fat ty/fried foods in diet. Recommend taking a daily fish oil supplement , continue atorvastat in 80mg per ADA guidelines along with fenofibrat e and Repatha. Hypokalemia 82647846 E87 .6 Minimal improvemen t since last visit.K 3.1 (11/24/22); 3.2 (12/24/22)C ontinue daily K supplement Klor-Con ER 20meq Hyponatremia 59569724 E8 7.1 Improved previously , but wasn't to goal.Na 127 (11/24/22); 130 (12/24/22)C ontinue daily Na supplement Sodium Chlor 1000mg daily Renal impairment 3066377 03 N28.9 StableBUN 39, Creat 1.51 (12/24/22)C ontinue to f/u with nephrology as scheduled. [id number] FAIZAN Lorenz [facility] Primary Care [address] [place] [address] 06/07/2023 14:20:43 06/07/2023 15:11:15 Renal impairment 145412571 N28.9 -pt recently f/u with renal 05/18/23 was told that his kidneys were close to WNL-next f/u in 6 months-he is currently on lasix BID, potassium noted to be 3.3, takes 1 potassium tablet/day -will go back to taking lasix once daily-f/u for labs in 11 days Diabetes mellitus 375965 09 E11.65 -chronic stable-rec ent A1c 10.5, improved from 13.3-does not check his blood sugar-curr ently taking glimepirid e 2mg, januvia, and trulicity Hyponatremia 69718112 E8 7.1 -currently 129-he is taking sodium tablets 1000mg daily-enco uraged to increased sodium tablet to BID, order provided-h e will f/u for labs in 11 days Insomnia 410089237 G47.0 0 -chronic stable with use of zolpidem-u ses daily as needed-req uests refill-giv en [id number] FAIZAN Lorenz [facility] Primary Care [address] [place] [address] 06/16/2023 15:48:41 06/16/2023 16:12:11 [id number] FAIZAN Lorenz [facility] Primary Care [address] [place] [address] 08/19/2023 10:46:59 08/19/2023 12:07:45 [id number] FAIZAN Lorenz [facility] Primary Care [address] [address] 09/07/2023 15:02:01 09/07/2023 15:37:15 Hyponatremia 83926772 E87.1 -cardiolog ist recently changed water pills-cont inues to take sodium and potassium tablets day and night-labs obatined Diabetes mellitus 789583 .65 -chronic stable-rec ent A1c 10.5, improved from 13.3-does not check his blood sugar-curr ently taking glimepirid e 2mg, januvia, and trulicity- increasing trulicity to 4.5mg/week Dental abscess 317602648 K04.7 has not f/u with a dentist, needs a referral [id number] TAYLOR Lorenz-Surekha [facility] Primary Care [address] [place] [address] 12/07/2023 14:59:10 12/07/2023 15:37:45 Hyponatremia 68530357 E87.1 -continues to take sodium and potassium tablets day and night-labs obtained Diabetes mellitus 568300 E11.65 12-07-23- sofia stable with use of meds-does not check his blood sugar daily-he was out of his glimepirid e for a couple days-A1c 10.5 in August-tr jeane briggs 2.5-labs obtained-t rial dexcom [id number] FAIZAN Lorenz [facility] Primary Care [address] [place] [address] 01/18/2024 11:31:25 01/18/2024 11:52:22 [id number] FAIZAN Lorenz [facility] Primary Care [address] [place] [address] 03/30/2024 14:44:44 03/30/2024 15:54:45 Hyponatremia 81189280 E87.1 -continues to take sodium and potassium tablets day and night-labs obtained Diabetes mellitus 309120 stable with medsendocr inology referral regenerate d 12-07-23-ch sofia stable with use of meds-does not check his blood sugar daily-he was out of his glimepirid e for a couple days-A1c 10.5 in August-tr jeane briggs 2.5-labs obtained-t rial dexcom Gastroesop hageal reflux disease 032247441 K21.9 Insomnia 874665236 G47.0 0 -chronic stable with use of zolpidem-u ses daily as needed-req uests refill-giv en [id number] Lisa Lopez APRN [facility] Primary Care [address] [place] [address] 07/12/2024 14:42:30 07/12/2024 16:38:50 Diabetes mellitus 68062504 E11.65 Hyperlipidemia 71464718 E78.5 Hepatitis C screening 41 7310128 Z11.59 Screening for malignant neoplasm of colon 158940140 Z12.11 Adult heal th examination 360333909 Z00.00 Screening for disorder 832113744 Z13.9 Administra tion of influenza vaccine 36402400 Z23 Screening for malignant neoplasm of prostate 656155967 Z12.5 [id number] FAIZAN Valerio [facility] Primary Care [address] [place] [address] 10/11/2024 14:01:19 10/11/2024 14:25:21 Diabetes mellitus 29199080 E11.65 A1c 11.3 (07/2024)C ontinues with medication s, will recheck labs in 3 months. Diabetic p eripheral neuropathy 830108369 E11.40 Will increase Gabapentin as listed below. Patient will follow up in 3 months sooner if needed. Hypertriglyceridemia 302 267536 E78.1 Triglyceri aurelia 2100 (07/2024)W ill recheck in 3 months, will refill meds as needed. Hyperlipidemia 51439627 E78.5 Discussed low fat, heart healthy diet and routine exercise.C ontinue with current medication s and recheck labs in 3 months. Body mass index 40+ - severely obese 088441633 Z68.41 Weight: 252 poundsBMI: 40.7 Health Concerns Section Related Observation LastModified by Organization Detai ls LastModified Time None Recorded Concern Status LastModified by Organization Details LastModified Time None Recorded Advance Directives Directive N: Payers Encounter Date Sequence Insurance Name Policy Number Policy Duran Covered Member ID Duran Member ID Guarantor Name 12/07/2023 1 [employer] - [place] [employer]US (MEDICARE REPLACEMENT HMO) [id number] Edinson Sims [id number] Edinson Tuan Levi 12/07/2023 2 [place] OR MEDICARE REPLACEMENT PRIMARY) Edinson Sims [id number] Edinson Tuan Levi 01/18/2024 1 [employer] - [place] [employer] (MEDICARE REPLACEMENT HMO) [id number] Edinson Sims [id number] Edinson Sims 01/18/2024 2 [place] OR MEDICARE REPLACEMENT PRIMARY) Edinson Sims [id number] Edinson Sims 03/30/2024 1 [employer] - [place] [employer] (MEDICARE REPLACEMENT HMO) [id number] Edinson Sims [id number] Edinson Tuan Levi 03/30/2024 2 [place] OR MEDICARE REPLACEMENT PRIMARY) Edinson Sims [id number] Edinson Tuan Levi 07/12/2024 1 [employer] - [place] [employer] (MEDICARE REPLACEMENT HMO) [id number] Edinson Sims [id number] Edinson Sims 07/12/2024 2 [place] MEDICARE REPLACEMENT PRIMARY) Edinson Sims [id number] Edinson Sims 10/11/2024 1 [employer] - [place] PL[employer] (MEDICARE REPLACEMENT HMO) [id number] Edinson Sims [id number] Edinson Sims Notes Date Note Type Note Provider Name and Address Organization Details Recorded Time 12/07/2023 text/html pt is here for f/u TAYLOR Carvalho-C [address], [address], [place], [address], [employer] 12/07/2023 15:37:01 03/30/2024 text/html pt is here for f/u Adria cadena LUNCHROOM AIDE-C [address], [address], [place], [address], [employer] 03/30/2024 16:55:55 07/12/2024 text/html Edinson presents today for his Medicare Annual Wellness exam and establish care. He states that he is in need for his toe nails trimmed. He has multiple diagnoses that require monitoring. He sees a etch operator [employer] wafers that he sees for his heart issues. Lisa Lopez APRN [address], [address], [place], [address], [employer] 07/13/2024 09:20:39 10/11/2024 text/html Patient is a 64 year old male that presents to the office for follow up. Patient was previously seeing FAIZAN Lorenz. Last appt was 07/12/24 with Lisa Lopez. Patient requesting referral to enterprise application developer for toenail trimming and neuropathy. Patient reports some days it pain is so severe he has a hard time getting to the bathroom. Patient has been taking Gabapentin 100mg in the morning and 200mg at bedtime. Patient has not completed cologuard. FAIZAN Valerio [address] [facility], [facility] [address], [place], [address], [place] [facility] [place] 10/11/2024 14:30:51
[2024-11-06 09:34] LABS: Basophils Absolute Auto 0.1 K/mm3 (0.0-0.1); Basophils Percent Auto 0.6 % (0.2-1.2); Eosinophils Absolute Auto 0.3 K/mm3 (0-0.3); Eosinophils Percent Auto 2.7 % (0-4.4); Hematocrit 46.6 % (42.0-52.0); Hemoglobin 15.9 g/dL (14.0-18.0); Immature Granulocyte Absolute 0.09 K/mm3 (0.00-0.031); Immature Granulocyte Percent A 0.7 % (0-0.5); Lymphocytes Absolute Auto 4.19 K/mm3 (0.9-3.2); Lymphocytes Percent Auto 34.2 % (18.3-44.2); Mean Corpuscular HGB Conc 34.1 g/dl (32-36); Mean Corpuscular Hemoglobin 28.6 pg (26-34); Mean Corpuscular Volume 83.8 fl (80-100); Mean Platelet Volume 10.3 fl (7.4-10.4); Monocytes Absolute Auto 1.4 K/mm3 (0.1-0.6); Neutrophils Absolute Auto 6.2 K/mm3 (1.3-6.7); Neutrophils Percent Auto 50.8 % (45.5-73.1); Platelet Count Result 250 k/mm3 (150-375); Red Blood Count 5.56 M/mm3 (4.6-6.20); Red Cell Distribution Width 13.2 % (11.5-14.5); White Blood Count 12.3 K/mm3 (4.5-10.0)
[2024-11-06 09:50] LABS: Anion Gap 10 mmol/L (4-12); Blood Urea Nitrogen 24 mg/dL (9-20); Calcium 8.9 mg/dL (8.4-10.2); Carbon Dioxide 25 mmol/L (22-30); Chloride 97 mmol/L (98-107); Estimated CRCL calculation 93 ml/min; Estimated Glomerular Filt Rate > 60; Glucose 321 mg/dL (65-110); Potassium 4.6 mmol/L (3.4-5.0); Sodium 132 mmol/L (137-145)
--- NOTE | 2024-11-06 10:07 | WPDHPUPDATE1 ---
History and Physical Update Update Date/Time: 11/06/24 10:07 History and Physical has been reviewed, including an updated exam of the patient. There are NO changes in the patient's condition. Risks, benefits, and alternatives have been discussed and questions answered. Patient agrees to proceed with procedure.
--- NOTE | 2024-11-06 10:08 | WPDMODSED ---
Moderate Sedation Note-Pt Data Patient Data Allergies Allergy/AdvReac Type Severity Reaction Status Date / Time No Known Allergies Allergy Unknown Verified 05/18/23 14:57 Home Medications ?Medication ?Instructions ?Recorded ?Confirmed ?Type acetaminophen 500 mg tablet 500 mg PO DAILY PRN Pain 11/27/20 11/06/24 History atorvastatin 80 mg tablet 80 mg PO DAILY 11/27/20 11/06/24 History cholecalciferol (vitamin D3) 25 25 mcg PO DAILY 11/27/20 11/06/24 History mcg (1,000 unit) chewable tablet (Vitamin D3) evolocumab 140 mg/mL subcutaneous See Rx Instructions .Route .COMPLEX 11/27/20 11/06/24 History syringe (Repatha Syringe) apixaban 5 mg tablet (Eliquis) 5 mg PO BID 12/27/21 11/06/24 History famotidine 20 mg tablet 20 mg PO BID 12/27/21 11/06/24 History furosemide 40 mg tablet 40 mg PO DAILY 12/27/21 11/06/24 History gabapentin 100 mg capsule 100 mg PO TID 12/27/21 11/06/24 History methocarbamol 750 mg tablet 750 mg PO TID PRN Muscle Pain 12/27/21 11/06/24 History carvedilol 6.25 mg tablet 6.25 mg PO Q12H 03/09/23 11/06/24 History docusate sodium 100 mg capsule 100 mg PO BID 03/09/23 11/06/24 History dulaglutide 0.75 mg/0.5 mL 0.75 mg subcut WEEKLY 03/09/23 11/06/24 History subcutaneous pen injector (Trulicity) evolocumab 140 mg/mL subcutaneous 140 mg subcut .Twice Monthly 03/09/23 11/06/24 History pen injector (Repatha SureClick) glimepiride 4 mg tablet 8 mg PO QAM 03/09/23 11/06/24 History metolazone 5 mg tablet 5 mg PO EVERY OTHER DAY 03/09/23 11/06/24 History potassium chloride 20 mEq 20 meq PO BID 03/09/23 11/06/24 History tablet,extended release(part/cryst) (Klor-Con M) sitagliptin phosphate 50 mg tablet 50 mg PO DAILY 03/09/23 11/06/24 History (Januvia) trazodone 50 mg tablet 100 mg PO QHS PRN sleep 03/09/23 11/06/24 History aspirin 81 mg capsule 81 mg PO DAILY 11/06/24 11/06/24 History icosapent ethyl 1 gram capsule 1 g PO BID 11/06/24 11/06/24 History (Vascepa) omega 8-fzv-ffs-fish oil 1,200 mg 1 cap PO BID 11/06/24 11/06/24 History (144 mg-216 mg) capsule (Fish Oil) omeprazole 40 mg capsule,delayed 40 mg PO DAILY 11/06/24 11/06/24 History release sodium chloride 1,000 mg soluble 1,000 mg PO DAILY 11/06/24 11/06/24 History tablet tirzepatide 2.5 mg/0.5 mL 2.5 mg subcut WEEKLY 11/06/24 11/06/24 History subcutaneous pen injector (Larryunardenro) Sedation/Anesthesia: No previous sedation/anesthesia problems (including family history). [facility] Past Medical History Medical History (Updated 05/18/23 @ 15:08 by Jules Tucker MD) Obesity NAFLD (nonalcoholic fatty liver disease) STEMI (ST elevation myocardial infarction) Pancreatitis Diabetes mellitus JOYA (acute kidney injury) Splenic vein thrombosis A-fib HLD (hyperlipidemia) HTN (hypertension) CAD (coronary artery disease) Surgical History Surgical History (Updated 12/29/21 @ 19:41 by Jimenez Kearney MD) Hx of CABG Family History Family History Father Acute myocardial infarction Diabetes mellitus Mother Acute myocardial infarction Chronic obstructive pulmonary disease Sibling Diabetes mellitus Social History Social History (Updated 03/09/23 @ 14:30 by Tracie Charles MA) Smoking status: Former smoker Smoking end date: 12/18/20 Alcohol intake: former Substance use: never Substance use type: does not use Lack of Transportation: No Lack of Food: Never True Current Housing: I Have Housing Concerned About Future Housing: No Difficulty Paying Gas/Electric Bills: No Difficulty Paying for Meds: No Currently Unemployed: No Education: High School Diploma/GED Difficulty w/ Childcare or Family Care: No Living arrangements: alone Gender identity (if verbalized by the patient): Male Spiritual care concerns: No Mod Sed Physical Exam Physical Exam Pre Procedural Exam: Normal: Lungs, Heart Rate and Heart Rhythm Hours since solid foods: 12 Hours since liquid intake: 12 Mallampati Classification: class III Internal Medicine - PN: Obj Da Vital Signs Vital Signs: Vital Signs - 24 hr 11/06/24 08:30 Temperature 36.7 C Pulse Rate 73 Respiratory Rate 12 Blood Pressure 159/81 H Pulse Oximetry 95 Oxygen Delivery Room Air Intake/Output Intake/Output: Intake & Output 11/03/24 11/04/24 11/05/24 11/06/24 23:59 23:59 23:59 23:59 Output Total 0 Balance 0 Labs 11/06/24 09:22 11/06/24 09:22 Labs: Laboratory Results - last 24 hr 11/06/24 09:22 WBC 12.3 H RBC 5.56 Hgb 15.9 D Hct 46.6 MCV 83.8 MCH 28.6 MCHC 34.1 RDW 13.2 Plt Count 250 MPV 10.3 Immature Gran % (Auto) 0.7 H Neut % (Auto) 50.8 Lymph % (Auto) 34.2 Foard % (Auto) 11.0 H Eos % (Auto) 2.7 Baso % (Auto) 0.6 Lymph # (Auto) 4.19 H Foard # (Auto) 1.4 H Eos # (Auto) 0.3 Baso # (Auto) 0.1 Abs Immat Gran (auto) 0.09 H Absolute Neuts (auto) 6.2 Absolute Nucleated RBC 0.000 Nucleated RBC % 0.0 Sodium 132 L Potassium 4.6 Chloride 97 L Carbon Dioxide 25 Anion Gap 10 BUN 24 H Creatinine 0.84 Estim Creat Clear Calc 93 Estimated GFR > 60 Glucose 321 H Calcium 8.9 ASA Classification/Sedation ASA Classification/Sedation ASA Class: III Emergent: No Risks: Risks, benefits and alternatives explained and patient/family accepted plan for sedation. Patient re-evaluated immediately prior to sedation.
--- NOTE | 2024-11-06 11:14 | WPDCARDPROC ---
Cardiac Cath Procedure Note Date of procedure:: 11/06/24 Performing physician:: CATHETERIZATION LABORATORY REPORT Procedure Date: 11/06/2024 Referring Physician: Dr. May Anesthesia: Versed and Fentanyl were ordered and given in my presence at 1027, procedure ended at 1059. Supervision of nurse, Erna Su monitored moderate sedation with 2mg Versed and 100mcg Fentanyl was provided for 32 minutes. Pre-op Diagnosis: Abnormal stress test Post-op Diagnosis: Abnormal Procedure(s): Left heart catheterization with coronary angiography stress test Bypass angiography Access Site: Right common femoral artery Brief History and Clinical Indications: 64-year-old man with CAD status post CABG (ch to LAD and radial to PDA) who was found to have new onset cardiomyopathy followed by abnormal stress test this year to define his coronary anatomy with possible PCI. All risks, benefits and alternatives to left heart catheterization with or without percutaneous coronary intervention was discussed at length with the patient. Risk of complications including but not limited to bleeding, infection, arrhythmia, stroke, worsening kidney function, blood loss, groin hematoma, limb loss, emergency coronary artery bypass grafting, and even were discussed with the patient and all questions were answered. The patient understood and wished to proceed. Time out called, patient name, date of , medical record number, allergies, procedure performed, identify Primary Care Physician, patient and staff member concurred with accurate data, procedure carried on. Findings: LEFT HEART CATHETERIZATION FINDINGS: 1. Left main: The left main coronary artery is widely patent without any significant obstructive disease. 2. Left anterior descending: The LAD provides 2 diagonal branches. Diagonal 1 is moderate caliber vessel that has diffuse 10-20% stenosis. Diagonal 2 is a small caliber vessel that is less than 2 mm in diameter with severe proximal stenosis. The proximal LAD has severe 80% stenosis. There is a stent in the mid body of the LAD that has 20-30% in-stent restenoses. There is competitive flow noted in the mid LAD. 3. Left circumflex: The left circumflex artery provides 1 OM branch. The OM 1 branch has 20-30% proximal stenosis followed by luminal irregularities throughout the remainder of its vessel. After the takeoff of the 1st OM 1 branch, the left circumflex goes on to become the left atrial branch and in its proximal body there is a 99% stenosis that is relatively unchanged compared to previous angiogram prior to bypass surgery. 4. Right coronary artery: The RCA is a large dominant vessel with 70-80% mid body stenosis followed by several areas of 90 to 99% in-stent restenoses from the mid RCA to the distal RCA. The right PDA and right PL have diffuse 10% stenosis. 5. Grafts CH-LAD patent Radial-rPDA occluded 5. Left ventricle: A. End-diastolic pressure 24 mmHg. B. LV gram deferred. C. No significant gradient across aortic valve on catheter pullback. 6. Opening AO pressure 173/92 and closing AO pressure 189/85 Description of Procedure: Informed consent signed and placed in the chart. Patient transferred to manager cath lab room. Prepped and draped in usual sterile fashion. 2% lidocaine in right groin area. Micropuncture needle used to access right common femoral artery with Seldinger technique under fluoroscopic guidance. J wire advanced, micropuncture cannula placed and exchanged for 6-FR sheath. 5F JL4 diagnostic catheter engaged Left Main Coronary Artery. 5F JR4 diagnostic catheter engaged Right Coronary Artery. Multiple orthogonal angiogram obtained and reviewed 5F Pigtail diagnostic catheter crossed aortic valve to obtain LVEDP, LV angiogram deferred. Hemostasis was achieved by Angioseal Assessment: Severe multivessel CAD. Patent CH to LAD Occluded radial to RPDA with severe [place] and ISR disease of mid to distal RCA Post Operative Condition: Stable No significant blood loss Disposition: Home Plan: Continue aggressive medical therapy. PCI can be pursued if patient fails medical therapy. Vish Sel[facility] Interventional Cardiology
[2024-11-06] MEDS: SODIUM CHLORIDE 0.9% IV 1,000 ML 125 ML IV CONT (11:15)
== END 2024-11-06 16:15 | disposition home or self-care (01) ==
PROVIDERS: PCP Nurse Practitioner Family; Visit Provider Internal Medicine
PROC: 4A023N7 Measurement of Cardiac Sampling and Pressure, Left Heart, Percutaneous Approach (ICD-10-PCS; CPT 93459; principal; 2024-11-06 10:00)
DX: I25.10 Atherosclerotic heart disease of native coronary artery without angina pectoris (principal); E78.5 Hyperlipidemia, unspecified; I10 Essential (primary) hypertension; E11.9 Type 2 diabetes mellitus without complications; I48.91 Unspecified atrial fibrillation; N17.9 Acute kidney failure, unspecified; K76.0 Fatty (change of) liver, not elsewhere classified; I25.2 Old myocardial infarction; K85.90 Acute pancreatitis without necrosis or infection, unspecified; Z79.01 Long term (current) use of anticoagulants; Z79.85 Long-term (current) use of injectable non-insulin antidiabetic drugs; Z79.84 Long term (current) use of oral hypoglycemic drugs; Z79.82 Long term (current) use of aspirin; Z98.890 Other specified postprocedural states; Z95.1 Presence of aortocoronary bypass graft; Z95.5 Presence of coronary angioplasty implant and graft; Z87.891 Personal history of nicotine dependence; Z86.718 Personal history of other venous thrombosis and embolism; Z82.49 Family history of ischemic heart disease and other diseases of the circulatory system
CPT/HCPCS: 36415; 80048; 85025; 93459; C1760; C1887; C1894; G0269; J0360; J1644; J2003; J2250; J2305; J3010; J7040